=== PATIENT | female | born 1975 | race Caucasian/White ===

== ENCOUNTER 2018-01-25 16:26 | Emergency (ER) | payer SELFPAY ==
[2018-01-25 17:37] LABS: Urine Blood TRACE (NEG); Urine Glucose NEGATIVE (NEG); Urine Protein NEGATIVE (NEG)
[2018-01-25 17:38] LABS: Absolute Lymphocytes (CBC) 2.5 K/uL (0.7-4.9); Absolute Monocytes 0.5 K/uL (0.1-1.3); Absolute Neutrophil 3.3 K/uL (1.8-8.0); Basophils % 0.9 % (0-1.3); Eosinophils % 3.3 % (0-4.4); Lymphocytes % 38.4 % (15.3-44.8); MCH 29.5 pg (27.0-35.0); MCV 89.5 fL (80-100); MPV 8.9 fL (7.6-11.3); Monocytes % 7.6 % (3.3-12.3); RBC Red Blood Cell Count 4.59 M/uL (3.86-4.86)
--- NOTE | 2018-01-25 17:40 | RAD REPORT ---
EXAM DESCRIPTION: [facility] Single View01/25/2018 5:28 pm CLINICAL HISTORY: Chest pain COMPARISON: 2011 FINDINGS: The lungs appear clear of acute infiltrate. Mild elevation the right hemidiaphragm is unc hanged. 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
[2018-01-25 17:49] LABS: Potassium 3.2 mEq/L (3.6-5.0)
[2018-01-25 17:52] LABS: Albumin 4.1 g/dL (3.2-5.5); Bilirubin Total 1.3 mg/dL (0.3-1.2); Protein, Total 8.2 g/dL (6.0-8.3)
[2018-01-25 17:54] LABS: Barbiturates NEGATIVE; Benzodiazepines NEGATIVE; Cocaine NEGATIVE; METHAMPHETAM NEGATIVE; Opiates NEGATIVE
[2018-01-25 18:10] LABS: T3 Free 3.65 pg/ml (2.84-4.24)
[2018-01-25 18:44] LABS: Thyroid Stimulating Hormone 15.95 uIU/mL (0.34-5.60)
--- NOTE | 2018-01-25 19:07 | EDPHYS ---
Physician Documentation [facility] Name: Hillary Olivares Age: 42 yrs Sex: Female : 1975 Arrival Date: 01/25/2018 Time: 16:27 Bed 7 Private MD: ED Physician Matt Burch HPI: 01/25 17:12 This 42 yrs old Female presents to ER via Ambulatory with complaints of Cyst, ps1 fatigue, and chronic pain. 17:12 Patient has a cyst on the back of her hear that has been there for over a month. This ps1 was her chief complaint. She does not have pain, redness, or inflammation around the area . She was accompanied by family member that verbalized that the patient has been forgetful, she is "hard headed" and does not take her medication. She reportedly is a patient of Dr. Vale and was recently diagnosed with thyroid dysfunction and on her own accord stopped taking the medication because it makes her feel funny. . 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 - Social history:: Smoking status: Patient/guardian denies using tobacco. ROS: 17:12 Constitutional: Negative for fever, chills, and weight loss, Eyes: Negative for injury, ps1 pain, redness, and discharge, Cardiovascular: Negative for chest pain, palpitations, and edema, Respiratory: Negative for shortness of breath, cough, wheezing, and pleuritic chest pain, Abdomen/GI: Negative for abdominal pain, nausea, vomiting, diarrhea, and constipation. 17:12 Back: Positive for pain with movement, which is chronic. 17:12 Skin: Positive for cyst on back of right ear. 17:12 Neuro: Positive for fatigue, slow to respond, . Exam: 17:12 Constitutional: This is a well developed, well nourished patient who is awake, alert, ps1 and in no acute distress. Head/Face: Normocephalic, atraumatic. Eyes: Pupils equal round and reactive to light, extra-ocular motions intact. Lids and lashes normal. Conjunctiva and sclera are non-icteric and not injected. ENT: Nares patent. No nasal discharge, no septal abnormalities noted. Tympanic membranes are normal and external auditory canals are clear. Oropharynx with no redness, swelling, or masses, exudates, or evidence of obstruction, uvula midline. Mucous membranes moist. Chest/axilla: Normal chest wall appearance and motion. Nontender with no deformity. No lesions are appreciated. Cardiovascular: Regular rate and rhythm. No gallops, murmurs, or rubs. Normal PMI, no JVD. No pulse deficits. Respiratory: Lungs have equal breath sounds bilaterally, clear to auscultation and percussion. No rales, rhonchi or wheezes noted. No increased work of breathing, no retractions or nasal flaring. Abdomen/GI: Soft, non-tender, with normal bowel sounds. No distension or tympany. No guarding or rebound. No evidence of tenderness throughout. 17:12 Skin: sebaceous cyst post auricular area. 1 cm in diameter and not infected appearing. . Vital Signs: 16:34 BP 170 / 66; Pulse 72; Resp 16; Temp 99.2(TE); Pulse Ox 100% on R/A; Weight 51.71 kg; la1 18:01 BP 158 / 88; Pulse 59; Resp 18; Pulse Ox 100% on R/A; sv MDM: 17:10 Patient medically screened. ps1 19:18 Data reviewed: vital signs, nurses notes, lab test result(s), radiologic studies. ED ps1 course: pt to follow up with Dr. Balderas for her chronic conditions. Request patient to be compliant with medications. Take diflucan for vaginosis and lamisil for toenails. Stable for discharge. . 01/25 17:10 Order name: CBC with Diff; Complete Time: 17:51 ps1 01/25 17:10 Order name: CMP ps1 01/25 17:10 Order name: TSH ps1 01/25 17:10 Order name: T3 Free ps1 01/25 17:10 Order name: UDS; Complete Time: 18:08 ps1 01/25 17:31 Order name: Urine Dipstick--Ancillary (enter results); Complete Time: 17:40 eb 01/25 17:10 Order name: Urine Dipstick-Ancillary (obtain specimen); Complete Time: 17:32 ps1 01/25 17:10 Order name: CXR XRAY; Complete Time: 17:41 ps1 01/25 17:31 Order name: Urine --Ancillary (enter results); Complete Time: 17:40 eb 01/25 18:45 Order name: T4 Free EDMO Administered Medications: No medications were administered Disposition: 01/25/18 19:06 Discharged to Home. Impression: Medication non-compliance., Hypothyroidism, onchiomycosis. , Yeast Infection, Sebaceous cyst. - Condition is Stable. - Discharge Instructions: Ringworm - Nail, Epidermal Cyst, [id number], Vaginitis, Monilial. - Prescriptions for Diflucan 150 mg Oral Tablet - take 1 tablet by ORAL route one time for 1 day; 1 tablet. Lamisil 250 mg Oral Tablet - take 1 tablet by ORAL route once daily for 12 weeks; 84 tablet. - Medication Reconciliation Form, Thank You Letter, Antibiotic Education, Prescription Opioid Use form. - Follow up: Avery Balderas MD; When: As needed; Reason: Further diagnostic work-up, Recheck today's complaints, Continuance of care, Re-evaluation by your physician. Follow up: Emergency Department; When: As needed; Reason: Worsening of condition. - Problem is chronic. - Symptoms are unchanged. - Notes: See attached hypothyroidism discharge instructions. Signatures: Dispatcher [employer] Gaby Batista RN RN sv Attema, Lee, RN RN la1 Ramón Haskins RN RN ao Singer, Phillip, MD MD ps1
--- NOTE | 2018-01-25 19:07 | ER ---
Nurse's Notes [facility] Name: Hillary Olivares Age: 42 yrs Sex: Female : 1975 Arrival Date: 01/25/2018 Time: 16:27 Bed 7 Private MD: Diagnosis: Medication non-compliance.;Hypothyroidism;onchiomycosis. ;Yeast Infection;Sebaceous cyst Presentation: 01/25 16:32 Presenting complaint: Patient states: I have been having a lot of health problems and la1 not had care for a long time (5 years) and I was just able to see Dr. Vale 2 weeks ago and he put me on my thyroid medicine but I stopped taking it again because it made me feel bad. I also have a cyst behind my right ear and I think that may have something to do with everything that is going on. Transition of care: patient was not received from another setting of care. Onset of symptoms was January 25, 2018. Initial Sepsis Screen: Does the patient meet any 2 criteria? No. Patient's initial sepsis screen is negative. Does the patient have a suspected source of infection? No. Patient's initial sepsis screen is negative. Care prior to arrival: None. 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 - Social history:: Smoking status: Patient/guardian denies using tobacco. Screenin:40 Abuse screen: Denies threats or abuse. Denies injuries from another. Nutritional sv screening: No deficits noted. Tuberculosis screening: No symptoms or risk factors identified. Fall Risk None identified. Assessment: 17:45 General: Appears in no apparent distress. uncomfortable, Behavior is calm, cooperative, sv appropriate for age, Reports "I'm losing my memory. I can just tell." Family at bedside she's been having memory loss for the past 5 years. Pain: Complains of pain in right mastoid area Pain does not radiate. Pain currently is 5 out of 10 on a pain scale. Quality of pain is described as tender, Pain began "a long time ago" Is intermittent, Alleviated by nothing. Neuro: Level of Consciousness is awake, alert, obeys commands, Oriented to person, place, time, situation, Moves all extremities. Full function Speech is normal. Cardiovascular: Patient's skin is warm and dry. Respiratory: Respiratory effort is even, unlabored, Respiratory pattern is regular, symmetrical. : Reports discharge, white, since "a long time" vaginal itching, "I'm worried about an STD.". EENT: behind right ear pt has a 2 cm raised area that has been there "a long time". Derm: Skin is pink, warm \\T\\ dry. Musculoskeletal: Range of motion: intact in all extremities, Reports "fungal infection in my left big toe". 18:59 Reassessment: Patient appears in no apparent distress at this time. No changes from sv previously documented assessment. Patient and/or family updated on plan of care and expected duration. Pain level reassessed. Patient is alert, oriented x 3, equal unlabored respirations, skin warm/dry/pink. Vital Signs: 16:34 BP 170 / 66; Pulse 72; Resp 16; Temp 99.2(TE); Pulse Ox 100% on R/A; Weight 51.71 kg; la1 18:01 BP 158 / 88; Pulse 59; Resp 18; Pulse Ox 100% on R/A; sv ED Course: 16:27 Patient arrived in ED. as 16:33 Triage completed. la1 16:34 Arm band placed on left wrist. la1 16:55 Matt Burch MD is Attending Physician. ps1 17:26 X-ray completed. Portable x-ray completed in exam room. Patient tolerated procedure kp1 well. 17:26 CXR XRAY In Process Unspecified. EDMS 17:31 Initial lab(s) drawn, by me, sent to lab. Urine collected: clean catch specimen, jb1 cloudy, dee colored. Inserted saline lock: 22 gauge in left antecubital area, using aseptic technique. Blood collected. 17:40 Patient has correct armband on for positive identification. Placed in gown. Bed in low sv position. Call light in reach. Adult w/ patient. Pulse ox on. NIBP on. Door closed. Warm blanket given. Head of bed elevated. 17:53 Gaby Zhang RN is Primary Nurse. sv 18:59 Assist provider with pelvic exam: Performed by Matt Burch MD Patient tolerated sv well. 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 19:06 Avery Balderas MD is Referral Physician. ps1 19:13 Report given to Jesús CARSON and Ramón CARSON. sv 19:26 Primary Nurse role handed off by Gaby Zhang RN sv 19:37 Ramón Haskins, RN is Primary Nurse. ao 19:45 IV discontinued, intact, bleeding controlled, No redness/swelling at site. Pressure ao dressing applied. Administered Medications: No medications were administered Outcome: 19:06 Discharge ordered by MD. ps1 19:44 Discharged to home ambulatory. ao 19:44 Condition: stable 19:44 Discharge instructions given to patient, Instructed on discharge instructions, follow up and referral plans. Demonstrated understanding of instructions, follow-up care, medications, Prescriptions given X 2. 19:46 Patient left the ED. ao Signatures: Dispatcher [employer] EDMS DianaAlin jb1 Gaby Zhang RN RN sv Martinez, Amelia as Attema, Lee, RN RN la1 Ramón Haskins RN RN Lesvia Toussaint kp1 Matt Burch MD MD ps1 Corrections: (The following items were deleted from the chart) 18:26 18:01 BP 158 / 8; Pulse 59bpm; Resp 18bpm; Pulse Ox 100% RA; sv sv 19:01 17:45 General: Appears in no apparent distress. uncomfortable, Behavior is calm, sv cooperative, appropriate for age, sv
== END 2018-01-25 19:46 | disposition home or self-care (01) ==
LOC: ER 16:26
DX: L72.3 Sebaceous cyst (principal); E03.9 Hypothyroidism, unspecified; B37.9 Candidiasis, unspecified; Z91.14 Patient's other noncompliance with medication regimen
CPT/HCPCS: 36415; 71045; 80053; 80307; 81003; 81025; 84439; 84443; 84481; 85025; 99284

== ENCOUNTER 2018-06-06 11:47 | Emergency (ER) | payer SELFPAY ==
[2018-06-06] MEDS ORDERED: KETOROLAC 30 MG/ML INJ ONE (12:23)
[2018-06-06] MEDS ORDERED: ONDANSETRON 4 MG/2 ML VIAL ONE (12:23)
[2018-06-06] MEDS ORDERED: NA CHLORIDE 0.9% 1,000 ML ONE (12:23)
--- NOTE | 2018-06-06 12:43 | RAD REPORT ---
EXAM DESCRIPTION: US - Abdomen Exam Limited - 06/06/2018 12:31 pm CLINICAL HISTORY: ABD PAIN COMPARISON: ABDOMINAL EXAM COMPLETE dated 02/17/2009 FINDINGS: The gallbladder demonstrates a prominent shadowing gallstone. No pericholecystic fluid or gallbladder wall thickening. The common bile duct is normal measuring 3 mm. The liver demonstrates no findings of intrahepatic biliary dilatation. IMPRESSION: Cholelithiasis.
[2018-06-06 12:46] LABS: Absolute Lymphocytes (CBC) 1.6 K/uL (0.7-4.9); Absolute Monocytes 0.4 K/uL (0.1-1.3); Absolute Neutrophil 2.6 K/uL (1.8-8.0); Basophils % 1.2 % (0-1.3); Eosinophils % 3.4 % (0-4.4); Hematocrit 42.2 % (36.0-45.0); Lymphocytes % 33.7 % (15.3-44.8); MCH 30.6 pg (27.0-35.0); MCV 90.1 fL (80-100); MPV 9.2 fL (7.6-11.3); RBC Red Blood Cell Count 4.69 M/uL (3.86-4.86)
[2018-06-06 12:51] LABS: Albumin 4.4 g/dL (3.4-5.0); Bilirubin Direct 0.3 mg/dL (0-0.2); Bilirubin Total 1.8 mg/dL (0.2-1.0); Potassium 4.1 mmol/L (3.5-5.1); Protein, Total 8.4 g/dL (6.4-8.2)
--- NOTE | 2018-06-06 13:07 | EDPHYS ---
Physician Documentation [facility] Name: Hillary Olivares Age: 42 yrs Sex: Female : 1975 Arrival Date: 06/06/2018 Time: 11:50 Bed 6 Private MD: None, None ED Physician Jerzy Cisse HPI: 06/06 13:00 This 42 yrs old Female presents to ER via Wheelchair with complaints of kb Abdominal Pain, Vomiting. 13:00 The patient presents with abdominal pain in the right upper quadrant. Onset: The kb symptoms/episode began/occurred yesterday. The symptoms do not radiate. Associated signs and symptoms: Pertinent positives: nausea and vomiting, Pertinent negatives: nausea, vomiting, and diarrhea, anorexia, blood in stools, chest pain, constipation, diarrhea, dysuria, fever, headache, hematuria, palpitations, shortness of breath, vaginal discharge, vomiting blood. The symptoms are described as constant, waxing/waning. Modifying factors: The symptoms are alleviated by nothing, the symptoms are aggravated by nothing. Severity of pain: At its worst the pain was moderate in the emergency department the pain is unchanged. The patient has not experienced similar symptoms in the past. The patient has been recently seen by a physician: the ER physician, out of Town. Pt states she was seen at [facility] yesterday and diagnosed with gallstones. Reports she still has pain so she came in. Did not fill prescriptions from yesterday. . 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 - Social history:: Smoking status: Patient/guardian denies using tobacco. - Ebola Screening: : Patient denies travel to an Ebola-affected area in the 21 days before illness onset. ROS: 13:04 Constitutional: Negative for fever, chills, and weight loss, Cardiovascular: Negative kb for chest pain, palpitations, and edema, Respiratory: Negative for shortness of breath, cough, wheezing, and pleuritic chest pain, Back: Negative for injury and pain, : Negative for injury, bleeding, discharge, and swelling, MS/Extremity: Negative for injury and deformity, Skin: Negative for injury, rash, and discoloration, Neuro: Negative for headache, weakness, numbness, tingling, and seizure. 13:04 Abdomen/GI: Positive for abdominal pain, nausea and vomiting, Negative for diarrhea, constipation, abdominal cramps, abdominal distension, anorexia. Exam: 13:04 Constitutional: This is a well developed, well nourished patient who is awake, alert, kb and in no acute distress. Head/Face: Normocephalic, atraumatic. Chest/axilla: Normal chest wall appearance and motion. Nontender with no deformity. No lesions are appreciated. Cardiovascular: Regular rate and rhythm with a normal S1 and S2. No gallops, murmurs, or rubs. Normal PMI, no JVD. No pulse deficits. Respiratory: Lungs have equal breath sounds bilaterally, clear to auscultation and percussion. No rales, rhonchi or wheezes noted. No increased work of breathing, no retractions or nasal flaring. Back: No spinal tenderness. No costovertebral tenderness. Full range of motion. Skin: Warm, dry with normal turgor. Normal color with no rashes, no lesions, and no evidence of cellulitis. MS/ Extremity: Pulses equal, no cyanosis. Neurovascular intact. Full, normal range of motion. Neuro: Awake and alert, GCS 15, oriented to person, place, time, and situation. Cranial nerves II-XII grossly intact. Motor strength 5/5 in all extremities. Sensory grossly intact. Cerebellar exam normal. Normal gait. 13:04 Abdomen/GI: Inspection: abdomen appears normal, Bowel sounds: normal, in all quadrants, Palpation: soft, in all quadrants, mild abdominal tenderness, in all quadrants. Vital Signs: 11:59 BP 130 / 92; Pulse 75; Resp 18; Temp 98.4(TE); Pulse Ox 100% on R/A; Weight 51.26 kg aj1 (R); Height 5 ft. 3 in. (160.02 cm) (R); Pain 10/10; 12:51 BP 142 / 71; Pulse 56; Resp 16; Pulse Ox 100% on R/A; Pain 3/10; sv 11:59 Body Mass Index 20.02 (51.26 kg, 160.02 cm) aj1 12:51 Pt reports that her pain is not a 10 all the time, only when her random pain come. sv MDM: 12:04 Patient medically screened. kb 13:00 Data reviewed: vital signs, nurses notes. Data interpreted: Pulse oximetry: on room air kb is 100 %. Interpretation: normal. Counseling: I had a detailed discussion with the patient and/or guardian regarding: the historical points, exam findings, and any diagnostic results supporting the discharge/admit diagnosis, lab results, radiology results, the need for outpatient follow up, a family practitioner, to return to the emergency department if symptoms worsen or persist or if there are any questions or concerns that arise at home. 06/06 12:15 Order name: Amylase, Serum; Complete Time: 12:56 kb 06/06 12:15 Order name: Basic Metabolic Panel; Complete Time: 12:56 kb 06/06 12:15 Order name: CBC with Diff; Complete Time: 12:48 kb 06/06 12:15 Order name: Hepatic Function; Complete Time: 12:56 kb 06/06 12:15 Order name: Lipase; Complete Time: 12:56 kb 06/06 12:15 Order name: US Abdomen Limited; Complete Time: 12:43 kb 06/06 12:15 Order name: IV Saline Lock; Complete Time: 12:23 kb 06/06 12:15 Order name: Labs collected and sent; Complete Time: 12:24 kb Administered Medications: 12:23 Drug: NS 0.9% 1000 ml Route: IV; Rate: 1000 ml; Site: right antecubital; hb 12:23 Drug: Zofran 4 mg Route: IVP; Site: right antecubital; hb 12:29 Follow up: Response: No adverse reaction sv 12:23 Drug: TORadol 30 mg Route: IVP; Site: right antecubital; hb 12:29 Follow up: Response: No adverse reaction sv 13:10 Drug: morphine 4 mg Route: IVP; Site: right antecubital; sv Disposition: 06/06/18 13:06 Discharged to Home. Impression: Cholelithiasis. - Condition is Stable. - Discharge Instructions: Cholelithiasis, [id number]. - Prescriptions for Zofran 4 mg Oral Tablet - take 1 tablet by ORAL route every 6 hours As needed; 20 tablet. - Medication Reconciliation Form, Thank You Letter, Antibiotic Education, Prescription Opioid Use form. - Follow up: Emergency Department; When: As needed; Reason: Worsening of condition. Follow up: Private Physician; When: 2 - 3 days; Reason: Recheck today's complaints, Continuance of care, Re-evaluation by your physician. Addendum: 06/10/2018 07:42 Co-signature as Attending Physician, Jerzy Cisse MD I agree with the assessment and c keenan plan of care. Signatures: Dispatcher [employer] EDKylie Hernandez, LEMUEL-C POWDER MONKEY-CkSarah Beth Greco, RN RN aj1 Radha Still, RN RN dm5 Gaby Zhang RN Jerzy Burdick MD MD cha Baxter, Heather RN RN Corrections: (The following items were deleted from the chart) 06/06 13:32 13:06 06/06/2018 13:06 Discharged to Home. Impression: Cholelithiasis. Condition is dm5 Stable. Forms are Medication Reconciliation Form, Thank You Letter, Antibiotic Education, Prescription Opioid Use. Follow up: Emergency Department; When: As needed; Reason: Worsening of condition. Follow up: Private Physician; When: 2 - 3 days; Reason: Recheck today's complaints, Continuance of care, Re-evaluation by your physician. kb
--- NOTE | 2018-06-06 13:07 | ER ---
Nurse's Notes [facility] Name: Hillary Olivares Age: 42 yrs Sex: Female : 1975 Arrival Date: 06/06/2018 Time: 11:50 Bed 6 Private MD: None, None Diagnosis: Cholelithiasis Presentation: 06/06 11:55 Presenting complaint: Patient states: "Abdominal pain and headache, chills, for the aj1 last 24 hours. She was seen in the ER at [facility] yesterday. They did labs and a CT scan. They said I have gallbladder stones." Patient reports nausea, vomiting, generalized body aches. Transition of care: patient was not received from another setting of care. Onset of symptoms was June 05, 2018. Risk Assessment: Do you want to hurt yourself or someone else? Patient reports no desire to harm self or others. Initial Sepsis Screen: Does the patient meet any 2 criteria? No. Patient's initial sepsis screen is negative. Does the patient have a suspected source of infection? Yes: Acute abdominal pain. Care prior to arrival: None. 11:55 Method Of Arrival: Wheelchair aj1 11:55 Acuity: ALBERTO 3 aj1 Triage Assessment: 11:59 General: Appears in no apparent distress. comfortable, Behavior is calm, cooperative, aj1 appropriate for age. Pain: Complains of pain in right upper quadrant and right lower quadrant Pain currently is 10 out of 10 on a pain scale. Neuro: Level of Consciousness is awake, alert, obeys commands. Cardiovascular: Patient's skin is warm and dry. Respiratory: Airway is patent Respiratory effort is even, unlabored, Respiratory pattern is regular, symmetrical. GI: Reports lower abdominal pain, upper abdominal pain, nausea, vomiting. Derm: Skin is pink, warm \\T\\ dry. normal. 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 - Social history:: Smoking status: Patient/guardian denies using tobacco. - Ebola Screening: : Patient denies travel to an Ebola-affected area in the 21 days before illness onset. Screenin:15 Abuse screen: Denies threats or abuse. Denies injuries from another. Nutritional sv screening: No deficits noted. Tuberculosis screening: No symptoms or risk factors identified. Fall Risk None identified. Assessment: 12:15 General: Appears in no apparent distress. uncomfortable, slender, Behavior is calm, sv cooperative, appropriate for age. Pain: Complains of pain in abdomen Pain currently is 10 out of 10 on a pain scale. Pain began 1 day ago. Is intermittent. Neuro: Level of Consciousness is awake, alert, obeys commands, Oriented to person, place, time, situation, Moves all extremities. Full function Gait is steady, Speech is normal. Respiratory: Respiratory effort is even, unlabored, Respiratory pattern is regular, symmetrical. GI: Abdomen is flat, Abd is soft X 4 quads Abdomen is tender to palpation X 4 quads. Reports vomiting. : No signs and/or symptoms were reported regarding the genitourinary system. EENT: No signs and/or symptoms were reported regarding the EENT system. Derm: Skin is pink, warm \\T\\ dry. Musculoskeletal: No signs and/or symptoms reported regarding the musculoskeletal system. 12:52 Reassessment: Patient appears in no apparent distress at this time. Patient and/or sv family updated on plan of care and expected duration. Pain level reassessed. Patient is alert, oriented x 3, equal unlabored respirations, skin warm/dry/pink. Patient states symptoms have improved. 13:07 Reassessment: Patient appears in no apparent distress at this time. Patient and/or sv family updated on plan of care and expected duration. Pain level reassessed. Patient is alert, oriented x 3, equal unlabored respirations, skin warm/dry/pink. Reports pain is a 10. Vital Signs: 11:59 BP 130 / 92; Pulse 75; Resp 18; Temp 98.4(TE); Pulse Ox 100% on R/A; Weight 51.26 kg aj1 (R); Height 5 ft. 3 in. (160.02 cm) (R); Pain 10/10; 12:51 BP 142 / 71; Pulse 56; Resp 16; Pulse Ox 100% on R/A; Pain 3/10; sv 11:59 Body Mass Index 20.02 (51.26 kg, 160.02 cm) aj1 12:51 Pt reports that her pain is not a 10 all the time, only when her random pain come. sv ED Course: 11:50 Patient arrived in ED. mr 11:50 None, None is Private Physician. mr 11:59 Triage completed. aj1 11:59 Arm band placed on Patient placed in an exam room. aj1 12:04 Kylie Isidro FNP-C is [facility]. kb 12:04 Jerzy Cisse MD is Attending Physician. kb 12:15 Gaby Zhang, ALLI is Primary Nurse. sv 12:15 Patient has correct armband on for positive identification. Bed in low position. Adult sv w/ patient. Door closed. Head of bed elevated. 12:15 Pulse ox on. NIBP on. mb4 12:23 Patient taken to ultrasound. via wheelchair. sv 12:25 Inserted saline lock: 22 gauge in right antecubital area, using aseptic technique. mb4 Blood collected. 12:32 US Abdomen Limited In Process Unspecified. EDMS 13:32 No provider procedures requiring assistance completed. IV discontinued, intact, sv bleeding controlled, No redness/swelling at site. Pressure dressing applied. Administered Medications: 12:23 Drug: NS 0.9% 1000 ml Route: IV; Rate: 1000 ml; Site: right antecubital; hb 12:23 Drug: Zofran 4 mg Route: IVP; Site: right antecubital; hb 12:29 Follow up: Response: No adverse reaction sv 12:23 Drug: TORadol 30 mg Route: IVP; Site: right antecubital; hb 12:29 Follow up: Response: No adverse reaction sv 13:10 Drug: morphine 4 mg Route: IVP; Site: right antecubital; sv Intake: 10:30 IV: 1000ml; Total: 1000ml. sv Outcome: 13:06 Discharge ordered by . kb 13:32 Patient left the ED. dm5 13:32 Discharged to home via wheelchair, with family. sv 13:32 Condition: stable 13:32 Discharge instructions given to patient, Instructed on discharge instructions, follow up and referral plans. medication usage, Discharge done by Radha CARSON Demonstrated understanding of instructions, follow-up care, medications, Prescriptions given X 1. Signatures: Dispatcher [employer] EDMS Kylie Isidro FNP-C FNP-Ckb Johnson, Angela RN RN aj1 Radha Still, RN RN dm5 Gaby Zhang, RN RN Sheila Pabon Heather, RN RN Yamile Ng 4
[2018-06-06] MEDS ORDERED: MORPHINE 4 MG/ML SYR ONE (13:12)
== END 2018-06-06 13:32 | disposition home or self-care (01) ==
LOC: ER 11:47
DX: K80.20 Calculus of gallbladder without cholecystitis without obstruction (principal)
CPT/HCPCS: 36415; 76705; 80048; 80076; 82150; 83690; 85025; 96374; 96375; 99284; J2405; J7030

== ENCOUNTER 2018-06-25 18:25 | Emergency (ER) | payer SELFPAY ==
[2018-06-25 18:57] LABS: Urine Blood NEGATIVE (NEG); Urine Glucose NEGATIVE (NEG); Urine Protein NEGATIVE (NEG); Urine pH 5.5 (5.0-7.0)
[2018-06-25 19:22] LABS: Urine Bacteria 20-50 /HPF (<20); Urine Culture Reflex Order NOT NEEDED; Urine RBC <5 /HPF (NONE SEEN)
--- NOTE | 2018-06-25 19:45 | RAD REPORT ---
EXAM DESCRIPTION: RAD - Abdomen 1 View (KUB) - 06/25/2018 7:39 pm CLINICAL HISTORY: ABD PAIN Pain COMPARISON: No comparisons FINDINGS: The bowel gas pattern is non-obstructive. No evidence of free air or pneumatosis. No suspi cious calcifications. No significant bony findings. Large amount of stool is present in the rectum. IMPRESSION: Rectal fecal impaction.
[2018-06-25] MEDS ORDERED: BISACODYL 10 MG RECTAL SUPP ONE ×2 (20:05→20:49)
--- NOTE | 2018-06-25 20:17 | ER ---
Nurse's Notes [facility] Name: Hillary Olivares Age: 42 yrs Sex: Female : 1975 Arrival Date: 06/25/2018 Time: 18:27 Bed 20 Private MD: None, None Diagnosis: Constipation, unspecified-resolved Presentation: 06/25 18:32 Presenting complaint: Patient states: Reports sensation of fecal impaction that started aj a few hours ago. Reports small bowel movement today and diarrhea 3 days ago, for which she took 2 doses of Imodium. Transition of care: patient was not received from another setting of care. Onset of symptoms was June 25, 2018. Risk Assessment: Do you want to hurt yourself or someone else? Patient reports no desire to harm self or others. Initial Sepsis Screen: Does the patient meet any 2 criteria? No. Patient's initial sepsis screen is negative. Does the patient have a suspected source of infection? No. Patient's initial sepsis screen is negative. Care prior to arrival: None. 18:32 Method Of Arrival: Ambulatory aj 18:32 Acuity: ALBERTO 4 aj Triage Assessment: 18:35 General: Appears in no apparent distress. comfortable, Behavior is calm, cooperative, aj appropriate for age. Pain: Denies pain. Neuro: Level of Consciousness is awake, alert, obeys commands, Oriented to person, place, time, situation, Appropriate for age. Respiratory: Airway is patent Respiratory effort is even, unlabored, Respiratory pattern is regular, symmetrical. GI: Reports hemorrhoids, Sensation of stool stuck in rectum. Derm: Skin is intact, is healthy with good turgor, Skin is pink, warm \T\ dry. normal. 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 - Social history:: Smoking status: Patient/guardian denies using tobacco. - Ebola Screening: : Patient negative for fever greater than or equal to 101.5 degrees Fahrenheit, and additional compatible Ebola Virus Disease symptoms Patient denies exposure to infectious person Patient denies travel to an Ebola-affected area in the 21 days before illness onset No symptoms or risks identified at this time. Screenin:40 Abuse screen: Denies threats or abuse. Denies injuries from another. Nutritional hj screening: No deficits noted. Tuberculosis screening: No symptoms or risk factors identified. Fall Risk None identified. Assessment: 18:41 GI: Bowel sounds present X 4 quads. Abd is soft and non tender. hj 18:41 General: Appears in no apparent distress. uncomfortable, Behavior is calm, cooperative, hj appropriate for age. Pain: Complains of pain in abdomen. Neuro: Level of Consciousness is awake, alert, obeys commands, Oriented to person, place, time, situation, Appropriate for age. Cardiovascular: Heart tones S1 S2 Capillary refill < 3 seconds Patient's skin is warm and dry. Respiratory: Airway is patent Respiratory effort is even, unlabored, Respiratory pattern is regular, symmetrical. GI: Reports constipation. : No signs and/or symptoms were reported regarding the genitourinary system. EENT: No signs and/or symptoms were reported regarding the EENT system. Derm: No signs and/or symptoms reported regarding the dermatologic system. Musculoskeletal: No signs and/or symptoms reported regarding the musculoskeletal system. 19:03 Reassessment: Patient appears in no apparent distress at this time. No changes from jd3 previously documented assessment. Patient and/or family updated on plan of care and expected duration. Pain level reassessed. Patient is alert, oriented x 3, equal unlabored respirations, skin warm/dry/pink. 19:27 Reassessment: Patient appears in no apparent distress at this time. No changes from jd3 previously documented assessment. Patient and/or family updated on plan of care and expected duration. Pain level reassessed. Patient is alert, oriented x 3, equal unlabored respirations, skin warm/dry/pink. 20:06 Reassessment: pt reported having a bowel movement, reported feeling better. j 20:44 Reassessment: Patient appears in no apparent distress at this time. Patient and/or j family updated on plan of care and expected duration. Pain level reassessed. Patient is alert, oriented x 3, equal unlabored respirations, skin warm/dry/pink. reported still feeling impacted, provider notified, new orders received. Vital Signs: 18:35 BP 154 / 86; Pulse 89; Resp 16; Temp 98.9; Pulse Ox 100% on R/A; Weight 51.26 kg; aj Height 5 ft. 3 in. (160.02 cm); 18:45 BP 156 / 87; Pulse 89; Resp 18; Pulse Ox 97% on R/A; hj 19:27 BP 158 / 81; Pulse 62; Resp 16 S; Pulse Ox 97% on R/A; jd3 20:40 BP 144 / 87; Pulse 65; Resp 16 S; Pulse Ox 96% on R/A; jd3 18:35 Body Mass Index 20.02 (51.26 kg, 160.02 cm) ED Course: 18:27 Patient arrived in ED. mr 18:28 None, None is Private Physician. mr 18:34 Triage completed. aj 18:35 Arm band placed on right wrist. Patient placed in an exam room. aj 18:40 Sean Guerrero, RN is Primary Nurse. hj 18:40 Lizz Bender [facility]-C [facility]. snw 18:40 Torsten Cheney MD is Attending Physician. snw 18:41 Patient has correct armband on for positive identification. Bed in low position. Call light in reach. Side rails up X 1. Adult w/ patient. 18:49 Urine collected: clean catch specimen, clear. 5 18:52 Urine --Ancillary (enter results) Sent. 5 18:52 Urine Dipstick--Ancillary (enter results) Sent. mh5 18:52 Urine Culture Sent. mh5 18:52 Urine Microscopic Only Sent. 5 19:03 Primary Nurse role handed off by Sean Guerrero, ALLI jd3 19:03 Cash Tesfaye RN is Primary Nurse. jd3 19:39 XRAY Abdomen 1 View (KUB) In Process Unspecified. EDMS 20:52 No provider procedures requiring assistance completed. Patient did not have IV access jd3 during this emergency room visit. Administered Medications: 20:06 Not Given (Patient Refused): Dulcolax Suppository 10 mg MI once jd3 20:44 Drug: Dulcolax Suppository 10 mg Route: MI; jd3 20:44 Follow up: Response: Medication administered at discharge. jd3 Outcome: 20:16 Discharge ordered by . snw 20:52 Discharged to home ambulatory, with friend. jd3 20:52 Condition: stable 20:52 Discharge instructions given to patient, friend, Instructed on discharge instructions, follow up and referral plans. medication usage, Demonstrated understanding of instructions, follow-up care, medications, Prescriptions given X 1. 20:53 Patient left the ED. jd3 Signatures: Dispatcher [employer] EDMS Dariana Rae, Lizz Walter RN, INFORMATION TECHNOLOGY MANAGER-C INFORMATION TECHNOLOGY MANAGER-Csnw Sheila Mas mr Sean Guerrero RN RN hj Martinez, Maria Cash Maciel RN RN jkrista
--- NOTE | 2018-06-25 20:17 | EDPHYS ---
Physician Documentation [facility] Name: Hillary Olivares Age: 42 yrs Sex: Female : 1975 Arrival Date: 06/25/2018 Time: 18:27 Bed 20 Private MD: None, None ED Physician Torsten Cheney HPI: 06/25 20:48 This 42 yrs old Female presents to ER via Ambulatory with complaints of snw Constipation. 20:48 Onset: The symptoms/episode began/occurred gradually. Associated signs and symptoms: snw Pertinent positives: pt with loose stool and then she took immodium x 2 doses. Pt now states she has rectal pressure and tiny, hard stools. It is unknown whether or not the patient has had similar symptoms in the past. The patient has not recently seen a physician. 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 - Social history:: Smoking status: Patient/guardian denies using tobacco. - Ebola Screening: : Patient negative for fever greater than or equal to 101.5 degrees Fahrenheit, and additional compatible Ebola Virus Disease symptoms Patient denies exposure to infectious person Patient denies travel to an Ebola-affected area in the 21 days before illness onset No symptoms or risks identified at this time. ROS: 20:43 Constitutional: Negative for fever, chills, and weight loss, Eyes: Negative for injury, snw pain, redness, and discharge, ENT: Negative for injury, pain, and discharge, Neck: Negative for injury, pain, and swelling, Cardiovascular: Negative for chest pain, palpitations, and edema, Respiratory: Negative for shortness of breath, cough, wheezing, and pleuritic chest pain, Abdomen/GI: Negative for abdominal pain, nausea, vomiting, diarrhea, and constipation, Back: Negative for injury and pain, : Negative for injury, bleeding, discharge, and swelling, MS/Extremity: Negative for injury and deformity, Skin: Negative for injury, rash, and discoloration, Neuro: Negative for headache, weakness, numbness, tingling, and seizure. Exam: 20:43 Constitutional: This is a well developed, well nourished patient who is awake, alert, snw and in no acute distress. Head/Face: Normocephalic, atraumatic. Eyes: Pupils equal round and reactive to light, extra-ocular motions intact. Lids and lashes normal. Conjunctiva and sclera are non-icteric and not injected. Cornea within normal limits. Periorbital areas with no swelling, redness, or edema. ENT: Nares patent. No nasal discharge, no septal abnormalities noted. Tympanic membranes are normal and external auditory canals are clear. Oropharynx with no redness, swelling, or masses, exudates, or evidence of obstruction, uvula midline. Mucous membranes moist. Neck: Trachea midline, no thyromegaly or masses palpated, and no cervical lymphadenopathy. Supple, full range of motion without nuchal rigidity, or vertebral point tenderness. No Meningismus. Chest/axilla: Normal chest wall appearance and motion. Nontender with no deformity. No lesions are appreciated. Cardiovascular: Regular rate and rhythm with a normal S1 and S2. No gallops, murmurs, or rubs. Normal PMI, no JVD. No pulse deficits. Respiratory: Lungs have equal breath sounds bilaterally, clear to auscultation and percussion. No rales, rhonchi or wheezes noted. No increased work of breathing, no retractions or nasal flaring. Abdomen/GI: Soft, non-tender, with normal bowel sounds. No distension or tympany. No guarding or rebound. No evidence of tenderness throughout. Back: No spinal tenderness. No costovertebral tenderness. Full range of motion. Skin: Warm, dry with normal turgor. Normal color with no rashes, no lesions, and no evidence of cellulitis. MS/ Extremity: Pulses equal, no cyanosis. Neurovascular intact. Full, normal range of motion. Neuro: Awake and alert, GCS 15, oriented to person, place, time, and situation. Cranial nerves II-XII grossly intact. Motor strength 5/5 in all extremities. Sensory grossly intact. Cerebellar exam normal. Normal gait. Psych: Awake, alert, with orientation to person, place and time. Behavior, mood, and affect are within normal limits. Vital Signs: 18:35 BP 154 / 86; Pulse 89; Resp 16; Temp 98.9; Pulse Ox 100% on R/A; Weight 51.26 kg; aj Height 5 ft. 3 in. (160.02 cm); 18:45 BP 156 / 87; Pulse 89; Resp 18; Pulse Ox 97% on R/A; hj 19:27 BP 158 / 81; Pulse 62; Resp 16 S; Pulse Ox 97% on R/A; jd3 20:40 BP 144 / 87; Pulse 65; Resp 16 S; Pulse Ox 96% on R/A; jd3 18:35 Body Mass Index 20.02 (51.26 kg, 160.02 cm) aj MDM: 18:42 Patient medically screened. snw 20:44 Data reviewed: vital signs, nurses notes. Data interpreted: Pulse oximetry: on room air snw is 96 %. Interpretation: acceptable. Counseling: I had a detailed discussion with the patient and/or guardian regarding: the historical points, exam findings, and any diagnostic results supporting the discharge/admit diagnosis, the presence of at least one elevated blood pressure reading (>120/80) during this emergency department visit, lab results, radiology results, the need for outpatient follow up, to return to the emergency department if symptoms worsen or persist or if there are any questions or concerns that arise at home. Special discussion: Based on the history and exam findings, there is no indication for further emergent testing or inpatient evaluation. I discussed with the patient/guardian the need to see the primary care provider for further evaluation of the symptoms. 06/25 18:41 Order name: Urine Culture [facility] 06/25 18:41 Order name: Urine Microscopic Only [facility] 06/25 18:50 Order name: Urine Dipstick--Ancillary (enter results) 06/25 18:50 Order name: Urine --Ancillary (enter results) bd 06/25 18:57 Order name: Urine --Ancillary; Complete Time: 19:08 [facility] 06/25 18:57 Order name: Urine Dipstick-Ancillary; Complete Time: 19:08 [facility] 06/25 18:41 Order name: Urine Test (obtain specimen); Complete Time: 18:42 snw 06/25 18:41 Order name: Urine Dipstick-Ancillary (obtain specimen); Complete Time: 18:43 snw 06/25 19:08 Order name: XRAY Abdomen 1 View (KUB); Complete Time: 19:48 snw 06/25 19:23 Order name: Urine Microscopic Only; Complete Time: 19:26 EDMS Administered Medications: 20:06 Not Given (Patient Refused): Dulcolax Suppository 10 mg AK once jd3 20:44 Drug: Dulcolax Suppository 10 mg Route: AK; jd3 20:44 Follow up: Response: Medication administered at discharge. jd3 Disposition: 06/25/18 20:16 Discharged to Home. Impression: Constipation, unspecified - resolved. - Condition is Stable. - Discharge Instructions: Constipation, Adult, Dehydration, Adult, High-Fiber Diet, Steps to Quit Smoking, Smoking Hazards, Rehydration, Adult. - Prescriptions for Miralax 17 gram/dose Oral - take 1 packet by ORAL route once daily dilute powder in 8 ounces of water or juice; 1 box. - Medication Reconciliation Form, Thank You Letter, Antibiotic Education, Prescription Opioid Use form. - Follow up: Private Physician; When: 2 - 3 days; Reason: Recheck today's complaints, Continuance of care, Re-evaluation by your physician. Follow up: Emergency Department; When: As needed; Reason: Worsening of condition. - Problem is new. - Symptoms are unchanged. Addendum: 06/28/2018 19:03 Co-signature as Attending Physician, Torsten Cheney MD. r n Signatures: Dispatcher [employer] EDDariana Quesada, RN RN Lizz Ashley, RETAIL RESET MERCHANDISER-C RETAIL RESET MERCHANDISER-Csnw Torsten Cheney MD MD rn Davies, Jonathon, RN RN jd3 Corrections: (The following items were deleted from the chart) 06/25 20:53 20:16 06/25/2018 20:16 Discharged to Home. Impression: Constipation, unspecified - jd3 resolved. Condition is Stable. Forms are Medication Reconciliation Form, Thank You Letter, Antibiotic Education, Prescription Opioid Use. Follow up: Private Physician; When: 2 - 3 days; Reason: Recheck today's complaints, Continuance of care, Re-evaluation by your physician. Follow up: Emergency Department; When: As needed; Reason: Worsening of condition. Problem is new. Symptoms are unchanged. snw
== END 2018-06-25 20:53 | disposition home or self-care (01) ==
LOC: ER 18:25
DX: K59.00 Constipation, unspecified (principal)
CPT/HCPCS: 74018; 81003; 81015; 81025; 87086; 87088; 99284

== ENCOUNTER 2019-04-09 15:32 | Emergency (ER) | payer SELFPAY ==
--- OUTSIDE RECORDS SUMMARY | 2019-04-09 15:34 | XMS REPORT ---
:1975 [facility] Address [address] [place] [address] Dr. [place] [address] [place] [id number] Care Team Providers Name Role Phone Unavailable Unavailable Unavailable Problems This patient has no known problems. Allergies, Adverse Reactions, Alerts This patient has no known allergies or adverse reactions. Medications This patient has no known medications.
[2019-04-09 16:24] LABS: Absolute Lymphocytes (CBC) 2.1 K/uL (0.7-4.9); Eosinophils % 3.6 % (0-4.4); Hematocrit 40.3 % (36.0-45.0); Lymphocytes % 32.8 % (15.3-44.8); MPV 9.4 fL (7.6-11.3); Monocytes % 8.4 % (3.3-12.3); RBC Red Blood Cell Count 4.51 M/uL (3.86-4.86)
[2019-04-09] MEDS ORDERED: NA CHLORIDE 0.9% 1,000 ML ONE (16:31)
[2019-04-09] MEDS ORDERED: DICYCLOMINE HCL 10 MG CAP ONE (16:46)
[2019-04-09 17:32] LABS: Potassium 3.3 mmol/L (3.5-5.1)
[2019-04-09 17:33] LABS: Thyroid Stimulating Hormone 18.8 uIU/mL (0.360-3.740)
--- NOTE | 2019-04-09 18:16 | RAD REPORT ---
EXAM DESCRIPTION: CT - Abdomen Pelvis W Contrast - 04/09/2019 5:55 pm CLINICAL HISTORY: Abdominal pain lower abdominal pain. COMPARISON: 2014 TECHNIQUE: Computed axial tomography of the abdomen pelvis was obtained. 100 cc Isovue-300 was admin istered intravenously. Oral contrast was not requested which limits evaluation of bowel. All CT scans are performed using dose optimization technique as appropriate and may include automated exposure control or mA/KV adjustment according to patient size. FINDINGS: 14 millimeter hepatic cyst. 10 millimeter intermediate density mass right lobe of the live r. It is unchanged in size from the prior exam and likely benign Spleen, pancreas, adrenal and kidneys appear unremarkable. Cholelithiasis There is no evidence of diverticulitis. Normal appendix Prominent periuterine veins Mild tree-in-bud opacities within the lingula IMPRESSION: Cholelithiasis Prominent periuterine veins. This is nonspecific but can be associated with pelvic venous congestion syndrome Mild tree-in-bud opacities within the lingula may indicate an atypical infection
--- NOTE | 2019-04-09 18:42 | ER ---
Nurse's Notes [facility] Name: Hillary Olivares Age: 43 yrs Sex: Female : 1975 Arrival Date: 04/09/2019 Time: 15:34 Bed 30 Private MD: Diagnosis: Other specified conditions associated with female genital organs and menstrual cycle;Vomiting;Diarrhea, unspecified;Pneumonia Presentation: 04/09 15:36 Presenting complaint: Patient states: lower abd pain and nausea that began 2 days ago. aa5 Pt denies vomiting, denies diarrhea. Transition of care: patient was not received from another setting of care. Onset of symptoms was April 2019. Risk Assessment: Do you want to hurt yourself or someone else? Patient reports no desire to harm self or others. Initial Sepsis Screen: Does the patient meet any 2 criteria? No. Patient's initial sepsis screen is negative. Does the patient have a suspected source of infection? No. Patient's initial sepsis screen is negative. Care prior to arrival: None. 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 - Social history:: Smoking status: Patient/guardian denies using tobacco. - Ebola Screening: : No symptoms or risks identified at this time. Screenin:29 Abuse screen: Denies threats or abuse. Denies injuries from another. Nutritional rv screening: No deficits noted. Tuberculosis screening: No symptoms or risk factors identified. Fall Risk None identified. Assessment: 16:27 General: Appears in no apparent distress. comfortable, Behavior is calm, cooperative. rv Pain: Complains of pain in abdomen. Neuro: Level of Consciousness is awake, alert, obeys commands, Oriented to person, place, time, situation. Cardiovascular: Patient's skin is warm and dry. Respiratory: Airway is patent. GI: Bowel sounds present X 4 quads. Abd is soft and non tender. : No signs and/or symptoms were reported regarding the genitourinary system. EENT: No signs and/or symptoms were reported regarding the EENT system. Derm: Skin is intact. Musculoskeletal: No signs and/or symptoms reported regarding the musculoskeletal system. 17:01 Reassessment: Patient appears in no apparent distress at this time. Patient and/or rv family updated on plan of care and expected duration. Pain level reassessed. Patient is alert, oriented x 3, equal unlabored respirations, skin warm/dry/pink. awaiting CT scan. 17:47 Reassessment: patient taken to CT scan. rv Vital Signs: 15:38 BP 132 / 82; Pulse 79; Resp 16 S; Temp 99.2(TE); Pulse Ox 100% on R/A; Height 5 ft. 3 aa5 in. (160.02 cm) (R); Pain 10/10; 15:40 Weight 52.3 kg (M); iw 16:42 BP 117 / 68; Pulse 53; Resp 15; Pulse Ox 100% on R/A; rv 17:01 BP 112 / 75; Pulse 56; Resp 15; Pulse Ox 100% ; rv 17:29 BP 122 / 75; Pulse 53; Resp 17 S; Pulse Ox 100% on R/A; ca1 17:46 BP 115 / 78; Pulse 51; Resp 15; Temp 99; Pulse Ox 100% ; rv 18:57 BP 114 / 74; Pulse 55; Resp 16; Temp 99; Pulse Ox 98% ; rv 15:40 Body Mass Index 20.42 (52.30 kg, 160.02 cm) iw ED Course: 15:34 Patient arrived in ED. aa5 15:37 Kyl[facility]id[facility]-C is [facility]. kb 15:37 Jerzy Cisse MD is Attending Physician. kb 15:37 Triage completed. aa5 15:53 Sam Gomes, ALLI is Primary Nurse. rv 15:53 Radiology exam delayed due to lab results not completed at this time. (BUN/Creatinine). vm2 15:53 Inserted saline lock: 20 gauge in right antecubital area, using aseptic technique. rv Blood collected. 16:12 Radiology exam delayed due to lab results not completed at this time. (BUN/Creatinine). vm2 16:29 Patient has correct armband on for positive identification. Bed in low position. Call rv light in reach. Side rails up X 1. Adult w/ patient. Pulse ox on. NIBP on. 16:32 Radiology exam delayed due to lab results not completed at this time. (BUN/Creatinine). ne 16:33 Patient placed in the treatment room, on a stretcher, on pulse oximetry, Patient rv notified of wait time. 16:49 Radiology exam delayed due to lab results not completed at this time. (BUN/Creatinine). ne 17:34 PHCP role handed off by Kylie Isidro FNP-C [facility] 17:34 Richard Moseley PA is PHCP. [facility] 17:56 CT Abd/Pelvis - IV Contrast Only In Process Unspecified. EDMS 18:00 CT completed. Patient tolerated procedure well. Patient moved to AL. Patient moved back ne from AL. 18:40 Annita Fay MD is Referral Physician. [facility] 18:40 Isma Mcadams MD is Referral Physician. [facility] 18:57 No provider procedures requiring assistance completed. IV discontinued, intact, rv bleeding controlled, No redness/swelling at site. Pressure dressing applied. Administered Medications: 16:18 Drug: NS 0.9% 1000 ml Route: IV; Rate: 1000 ml; Site: right antecubital; rv 18:57 Follow up: IV Status: Completed infusion rv 16:32 Drug: Bentyl 20 mg Route: PO; rv 18:57 Follow up: Response: No adverse reaction rv Outcome: 18:42 Discharge ordered by MD. [facility] 18:58 Discharged to home ambulatory. rv 18:58 Condition: good 18:58 Discharge instructions given to patient, Instructed on discharge instructions, follow up and referral plans. medication usage, Demonstrated understanding of instructions, follow-up care, medications, Prescriptions given X 2. 18:58 Patient left the ED. rv Signatures: Dispatcher [employer] EDMS Kylie Isidro FNP-C FNP-Richard Flores PA PA Nataliia Alexandre RN RN iw Calderon, Audri, RN RN aliyah5 Ziyad Maradiaga Victoria 2 Sam Gomes RN RN rv Acob, Cheryl, RN RN ca1 Corrections: (The following items were deleted from the chart) 15:53 15:53 Radiology exam delayed due to lab results not completed at this time. vm2 test not completed at this time. vm2
--- NOTE | 2019-04-09 18:43 | EDPHYS ---
Physician Documentation [facility] Name: Hillary Olivares Age: 43 yrs Sex: Female : 1975 Arrival Date: 04/09/2019 Time: 15:34 Bed 30 Private MD: GISELA Physician Jerzy Cisse HPI: 04/09 15:55 This 43 yrs old Female presents to ER via Ambulatory with complaints of kb Abdominal Pain. 15:55 The patient presents with abdominal pain in the lower abdomen. Onset: The kb symptoms/episode began/occurred 1 year(s) ago, and became worse. The symptoms do not radiate. Associated signs and symptoms: Pertinent positives: nausea, vomiting, and diarrhea, constipation. The symptoms are described as intermittent. Modifying factors: The symptoms are alleviated by nothing, the symptoms are aggravated by nothing. Severity of pain: At its worst the pain was moderate in the emergency department the pain has improved mildly. The patient has not experienced similar symptoms in the past. The patient has been recently seen by a physician:. Pt reports lower abd pain, n/v/d and constipation intermittently for a year. States the pain is more of a spasm. Reports the pain was really bad last night so that is why she came in today. . 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 - Social history:: Smoking status: Patient/guardian denies using tobacco. - Ebola Screening: : No symptoms or risks identified at this time. ROS: 15:53 Constitutional: Negative for fever, chills, and weight loss, ENT: Negative for injury, kb pain, and discharge, Neck: Negative for injury, pain, and swelling, Cardiovascular: Negative for chest pain, palpitations, and edema, Respiratory: Negative for shortness of breath, cough, wheezing, and pleuritic chest pain, Back: Negative for injury and pain, : Negative for injury, bleeding, discharge, and swelling, MS/Extremity: Negative for injury and deformity, Skin: Negative for injury, rash, and discoloration, Neuro: Negative for headache, weakness, numbness, tingling, and seizure. 15:53 Abdomen/GI: Positive for abdominal pain, nausea, vomiting, and diarrhea, constipation, Negative for abdominal cramps, abdominal distension, anorexia. Exam: 15:54 Constitutional: This is a well developed, well nourished patient who is awake, alert, kb and in no acute distress. Head/Face: Normocephalic, atraumatic. ENT: Nares patent. No nasal discharge, no septal abnormalities noted. Tympanic membranes are normal and external auditory canals are clear. Oropharynx with no redness, swelling, or masses, exudates, or evidence of obstruction, uvula midline. Mucous membranes moist. Neck: Trachea midline, no thyromegaly or masses palpated, and no cervical lymphadenopathy. Supple, full range of motion without nuchal rigidity, or vertebral point tenderness. No Meningismus. Chest/axilla: Normal chest wall appearance and motion. Nontender with no deformity. No lesions are appreciated. Cardiovascular: Regular rate and rhythm with a normal S1 and S2. No gallops, murmurs, or rubs. Normal PMI, no JVD. No pulse deficits. Respiratory: Lungs have equal breath sounds bilaterally, clear to auscultation and percussion. No rales, rhonchi or wheezes noted. No increased work of breathing, no retractions or nasal flaring. Abdomen/GI: Soft, non-tender, with normal bowel sounds. No distension or tympany. No guarding or rebound. No evidence of tenderness throughout. Back: No spinal tenderness. No costovertebral tenderness. Full range of motion. Skin: Warm, dry with normal turgor. Normal color with no rashes, no lesions, and no evidence of cellulitis. MS/ Extremity: Pulses equal, no cyanosis. Neurovascular intact. Full, normal range of motion. Neuro: Awake and alert, GCS 15, oriented to person, place, time, and situation. Cranial nerves II-XII grossly intact. Motor strength 5/5 in all extremities. Sensory grossly intact. Cerebellar exam normal. Normal gait. Vital Signs: 15:38 BP 132 / 82; Pulse 79; Resp 16 S; Temp 99.2(TE); Pulse Ox 100% on R/A; Height 5 ft. 3 aa5 in. (160.02 cm) (R); Pain 10/10; 15:40 Weight 52.3 kg (M); iw 16:42 BP 117 / 68; Pulse 53; Resp 15; Pulse Ox 100% on R/A; rv 17:01 BP 112 / 75; Pulse 56; Resp 15; Pulse Ox 100% ; rv 17:29 BP 122 / 75; Pulse 53; Resp 17 S; Pulse Ox 100% on R/A; ca1 17:46 BP 115 / 78; Pulse 51; Resp 15; Temp 99; Pulse Ox 100% ; rv 18:57 BP 114 / 74; Pulse 55; Resp 16; Temp 99; Pulse Ox 98% ; rv 15:40 Body Mass Index 20.42 (52.30 kg, 160.02 cm) iw MDM: 15:40 Patient medically screened. kb 15:52 Data reviewed: vital signs, nurses notes. Data interpreted: Pulse oximetry: on room air kb is 100 %. Interpretation: normal. 18:38 Counseling: I had a detailed discussion with the patient and/or guardian regarding: the m historical points, exam findings, and any diagnostic results supporting the discharge/admit diagnosis, lab results, radiology results, the need for outpatient follow up, to return to the emergency department if symptoms worsen or persist or if there are any questions or concerns that arise at home. ED course: I discussed lab results with the patient along with radiology results. Patient was advised to follow up with CONSTRUCTION SCHEDULER, GI, and pcp for reevaluation. Patient was otherwise given strict return precautions. Patient understood and agrees with the plan of care. . 04/09 15:51 Order name: Basic Metabolic Panel; Complete Time: 17:54 kb 04/09 15:51 Order name: CBC with Diff; Complete Time: 16:35 kb 04/09 15:51 Order name: TSH; Complete Time: 17:54 kb 04/09 15:54 Order name: Urine Dipstick--Ancillary (enter results); Complete Time: 09:56 ag 04/09 15:54 Order name: Urine --Ancillary (enter results); Complete Time: 09:56 ag 04/09 17:34 Order name: T4 Free; Complete Time: 17:54 EDMS 04/09 15:51 Order name: IV Saline Lock; Complete Time: 16:32 kb 04/09 15:51 Order name: Labs collected and sent; Complete Time: 16:32 kb 04/09 15:52 Order name: CT Abd/Pelvis - IV Contrast Only; Complete Time: 18:28 kb Administered Medications: 16:18 Drug: NS 0.9% 1000 ml Route: IV; Rate: 1000 ml; Site: right antecubital; rv 18:57 Follow up: IV Status: Completed infusion rv 16:32 Drug: Bentyl 20 mg Route: PO; rv 18:57 Follow up: Response: No adverse reaction rv Disposition: 04/09/19 18:42 Discharged to Home. Impression: Other specified conditions associated with female genital organs and menstrual cycle, Vomiting, Diarrhea, unspecified, Pneumonia. - Condition is Stable. - Discharge Instructions: Diarrhea, Adult, Nausea and Vomiting, Adult, Pelvic Pain, Female, Community-Acquired Pneumonia, Adult. - Prescriptions for Zofran ODT 4 mg Oral tablet,disintegrating - place 1 tablet by TRANSLINGUAL route every 4-6 hours; 20 tablet. Tylenol- Codeine #3 300-30 mg Oral Tablet - take 1 tablet by ORAL route every 6 hours As needed; 20 tablet. Zithromax Z- Oh 250 mg Oral Tablet - take 1 tablet by ORAL route as directed for 5 days Day 1 - take two (2) tablets one time. Day 2, 3, 4 , 5 take one (1) tablet once daily.; 6 tablet. - Medication Reconciliation Form, Thank You Letter, Antibiotic Education, Prescription Opioid Use form. - Follow up: Annita Fay MD; When: 2 - 3 days; Reason: Recheck today's complaints, Continuance of care, Re-evaluation by your physician. Follow up: Isma Mcadams MD; When: 2 - 3 days; Reason: Recheck today's complaints, Continuance of care, Re-evaluation by your physician. Addendum: 04/15/2019 16:46 Co-signature as Attending Physician, Jerzy Cisse MD I agree with the assessment and c keenan plan of care. Signatures: Dispatcher [employer] Kylie Herrera, SUBSCRIPTION AGENT-C SUBSCRIPTION AGENT-Jerzy Fuchs MD MD cha Mickail, Joel, PA PA Radha Rosa, RN RN aa5 Sam Gomes RN RN rv Corrections: (The following items were deleted from the chart) 04/09 18:58 18:42 04/09/2019 18:42 Discharged to Home. Impression: Other specified conditions rv associated with female genital organs and menstrual cycle; Vomiting; Diarrhea, unspecified; Pneumonia. Condition is Stable. Forms are Medication Reconciliation Form, Thank You Letter, Antibiotic Education, Prescription Opioid Use. Follow up: Annita Fay; When: 2 - 3 days; Reason: Recheck today's complaints, Continuance of care, Re-evaluation by your physician. Follow up: Isma Mcadams; When: 2 - 3 days; Reason: Recheck today's complaints, Continuance of care, Re-evaluation by your physician. sam
[2019-04-09 20:10] LABS: Urine Blood NEGATIVE (NEG); Urine Glucose NEGATIVE (NEG); Urine Protein TRACE (NEG); Urine Specific Gravity >1.030 (1.005-1.030)
== END 2019-04-09 18:58 | disposition home or self-care (01) ==
LOC: ER 15:32
DX: N94.89 Other specified conditions associated with female genital organs and menstrual cycle (principal); R11.10 Vomiting, unspecified; R19.7 Diarrhea, unspecified; J18.9 Pneumonia, unspecified organism; E03.9 Hypothyroidism, unspecified
CPT/HCPCS: 36415; 74177; 80048; 81003; 81025; 84439; 84443; 85025; 96360; 96361; 99284; J7030; Q9967

== ENCOUNTER 2019-05-24 17:21 | Emergency (ER) | payer SELFPAY ==
--- OUTSIDE RECORDS SUMMARY | 2019-05-24 17:22 | XMS REPORT ---
:1975 [facility] Address [address] [place] [address] [address] [place] [address] Care Team Providers Name Role Phone Unavailable Unavailable Unavailable Problems This patient has no known problems. Allergies, Adverse Reactions, Alerts This patient has no known allergies or adverse reactions. Medications This patient has no known medications.
[2019-05-24] MEDS ORDERED: NA CHLORIDE 0.9% 1,000 ML ONE (18:16)
[2019-05-24] MEDS ORDERED: ONDANSETRON 4 MG/2 ML VIAL ONE (18:16)
[2019-05-24 18:24] LABS: Basophils % 0.8 % (0-1.3); Hematocrit 38.4 % (36.0-45.0); Lymphocytes % 26.2 % (15.3-44.8); RBC Red Blood Cell Count 4.29 M/uL (3.86-4.86)
[2019-05-24 18:30] LABS: Urine Blood NEGATIVE (NEG); Urine Glucose NEGATIVE (NEG); Urine Protein NEGATIVE (NEG); Urine Specific Gravity 1.025 (1.005-1.030)
[2019-05-24 18:33] LABS: Urine Bacteria 20-50 /HPF (<20); Urine Culture Reflex Order REFLEXED; Urine Mucus 1+ /HPF (NONE SEEN); Urine RBC NONE SEEN /HPF (NONE SEEN)
[2019-05-24 18:36] LABS: Albumin 3.7 g/dL (3.4-5.0); Bilirubin Direct 0.2 mg/dL (0-0.2)
[2019-05-24] MEDS ORDERED: MORPHINE 2 MG/ML SYR ONE (19:48)
--- NOTE | 2019-05-24 20:10 | RAD REPORT ---
EXAM DESCRIPTION: CT - Abdomen Pelvis W Contrast - 05/24/2019 7:39 pm CLINICAL HISTORY: Abdominal pain. COMPARISON: none. TECHNIQUE: Computed axial tomography of the abdomen pelvis was obtained. 100 cc Isovue-300 was admin istered intravenously. Oral contrast was not requested which limits evaluation of bowel. All CT scans are performed using dose optimization technique as appropriate and may include automated exposure control or mA/KV adjustment according to patient size. FINDINGS: 14 millimeter hepatic cyst. 10 millimeter intermediate density mass right lobe of the liver. It is unchanged in size from the prior exam and likely benign Spleen, pancreas, adrenal and kidneys appear unremarkable. Cholelithiasis There is no evidence of diverticulitis. Normal appendix Prominent periuterine veins Mild tree-in-bud opacities within the lingula . IMPRESSION: Cholelithiasis Mild tree-in-bud opacities within the lingula may indicate an atypical infection
--- NOTE | 2019-05-24 20:50 | EDPHYS ---
Physician Documentation [facility] Name: Hillary Olivares Age: 43 yrs Sex: Female : 1975 Arrival Date: 05/24/2019 Time: 17:22 Bed 13 Private MD: ED Physician Jayy Soria HPI: 05/24 18:05 This 43 yrs old Female presents to ER via Wheelchair with complaints of cp Abdominal Pain, Decreased Appetite. 18:05 The patient presents with abdominal pain in the lower abdomen. Onset: The cp symptoms/episode began/occurred this morning. 18:05 The symptoms do not radiate. Associated signs and symptoms: Pertinent positives: cp nausea, Pertinent negatives: blood in stools, chest pain, constipation, diarrhea, dysuria, fever, hematuria, vaginal discharge, vomiting. The symptoms are described as waxing/waning. Severity of pain: in the emergency department the pain is unchanged despite home interventions. The patient has experienced similar episodes in the past, over the past year. The patient has not recently seen a physician, and does not have an established primary care provider. Historical: - Allergies: 17:29 No Known Drug Allergies; tw2 - Home Meds: 17:29 Zofran Oral [Active]; tw2 - PMHx: 17:29 Hypothyroidism; tw2 - PSHx: 17:29 Lung SX; Hysterectomy; tw2 - Immunization history:: Adult Immunizations. - Social history:: Smoking status: . - Ebola Screening: : Patient denies exposure to infectious person. ROS: 18:10 Constitutional: Negative for body aches, chills, fever, poor PO intake. cp 18:10 Eyes: Negative for injury, pain, redness, and discharge. cp 18:10 ENT: Negative for drainage from ear(s), ear pain, sore throat, difficulty swallowing, difficulty handling secretions. 18:10 Cardiovascular: Negative for chest pain, edema, palpitations. 18:10 Respiratory: Negative for cough, shortness of breath, wheezing. 18:10 Abdomen/GI: Positive for abdominal pain, nausea, of the right lower quadrant and left lower quadrant, Negative for diarrhea, constipation, abdominal distension, active vomiting. 18:10 Back: Negative for radiated pain. 18:10 : Negative for urinary symptoms, vaginal bleeding, vaginal discharge. 18:10 Skin: Negative for rash. 18:10 Neuro: Negative for altered mental status, headache, weakness. 18:10 All other systems are negative. Exam: 18:20 Constitutional: The patient appears in no acute distress, alert, awake, non-toxic, well cp developed, well nourished. 18:20 Head/Face: Normocephalic, atraumatic. cp 18:20 Eyes: Periorbital structures: appear normal, Conjunctiva: normal, no exudate, no injection, Sclera: no appreciated abnormality, Lids and lashes: appear normal, bilaterally. 18:20 ENT: External ear(s): are unremarkable, Nose: is normal, Mouth: Lips: moist, Oral mucosa: pink and intact, moist, Posterior pharynx: is normal, airway is patent, no erythema, no exudate. 18:20 Chest/axilla: Inspection: normal. 18:20 Cardiovascular: Rate: normal, Rhythm: regular. 18:20 Respiratory: the patient does not display signs of respiratory distress, Respirations: normal, no use of accessory muscles, no retractions, no splinting, no tachypnea, labored breathing, is not present, Breath sounds: are clear throughout, no decreased breath sounds, no stridor, no wheezing. 18:20 Abdomen/GI: Inspection: abdomen appears normal, Bowel sounds: active, all quadrants, Palpation: soft, in all quadrants, mild abdominal tenderness, in the right lower quadrant and left lower quadrant. 18:20 Back: pain, is absent, ROM is normal, CVA tenderness, is absent. Vital Signs: 17:27 BP 138 / 75; Pulse 76; Resp 17; Temp 98.2(O); Pulse Ox 100% on R/A; Weight 52.16 kg tw2 (M); Height 5 ft. 3 in. (160.02 cm); Pain 10/10; 18:34 BP 127 / 75; Pulse 61; Resp 18; Pulse Ox 100% on R/A; ph 19:16 BP 135 / 72; Pulse 57; Resp 16 S; Temp 97.7(O); Pulse Ox 100% on R/A; cc3 20:34 BP 107 / 75; Pulse 54; Resp 18 S; Pulse Ox 100% on R/A; Pain 2/10; cc3 21:00 BP 110 / 77; Pulse 60; Resp 17 S; Pulse Ox 100% on R/A; Pain 1/10; cc3 17:27 Body Mass Index 20.37 (52.16 kg, 160.02 cm) tw2 MDM: 17:43 Patient medically screened. cp 19:00 Differential diagnosis: appendicitis, cholecystitis, Cholelithiasis, diverticulitis, cp non-specific abd pain, Pyelonephritis, Ureterolithiasis, urinary tract infection, colitis. 20:48 Data reviewed: vital signs, nurses notes, lab test result(s), radiologic studies, CT cp scan, and as a result, I will discharge patient. 20:48 Counseling: I had a detailed discussion with the patient and/or guardian regarding: the cp historical points, exam findings, and any diagnostic results supporting the discharge/admit diagnosis, lab results, radiology results, to return to the emergency department if symptoms worsen or persist or if there are any questions or concerns that arise at home. 20:48 Response to treatment: improved. Special discussion: Based on the patient's Hx, exam, cp and Dx evaluation, there is no indication for emergent surgery or inpatient Tx. It is understood by the patient/guardian that if the Sx's persist or worsen they need to return immediately for re-evaluation. 05/24 17:55 Order name: Basic Metabolic Panel; Complete Time: 19:04 cp 18 20:30 Interpretation: Normal except: CL 108; GFR 70. cp 05/24 17:55 Order name: CBC with Diff; Complete Time: 19:04 cp 18 17:55 Order name: Creatinine for Radiology; Complete Time: 19:04 cp 18 17:55 Order name: Hepatic Function; Complete Time: 19:04 cp 18 20:37 Interpretation: Normal except: AST 13. cp 18 17:55 Order name: Lipase; Complete Time: 19:04 cp 18 17:56 Order name: Urine Microscopic Only; Complete Time: 19:04 cp 18 20:30 Interpretation: Normal except: UWBC 5-10; UBACT 20-50; SQEPI 5-10. cp 18 18:25 Order name: Urine Dipstick--Ancillary (enter results); Complete Time: 19:04 eb 05/24 18:35 Order name: Urine Culture EDMS 05/24 19:05 Order name: CT Abd/Pelvis - IV Contrast Only; Complete Time: 20:29 cp 05/24 17:55 Order name: IV Saline Lock; Complete Time: 18:12 cp 05/24 17:55 Order name: Labs collected and sent; Complete Time: 18:13 cp 05/24 17:56 Order name: Urine Dipstick-Ancillary (obtain specimen); Complete Time: 18:21 cp Administered Medications: 18:33 Drug: NS 0.9% 1000 ml Route: IV; Rate: 1 bolus; Site: right forearm; ph 19:20 Follow up: Response: No adverse reaction; IV Status: Completed infusion; IV Intake: cc3 1000ml 18:34 Drug: Zofran 4 mg Route: IVP; Site: right forearm; ph 19:20 Follow up: Response: No adverse reaction; Nausea is decreased cc3 19:48 CANCELLED (Physician Discretion): morphine 2 mg IVP once; (PAIN>8) RASS on ADMN: cp Combtv4, Very Agttd3, Agttd2, Rstlss1, AlertClm0, Drwsy-1, LtSdtn-2, ModSdtn-3, DpSdtn-4, UnArsble-5 x2 19:51 Drug: morphine 2 mg Route: IVP; Site: right antecubital; ca1 20:30 Follow up: Response: No adverse reaction; Pain is decreased; RASS: Alert and Calm (0) cc3 20:55 Drug: TORadol - Ketorolac 15 mg {Note: RASS 0.} Route: IVP; Site: right forearm; cc3 21:08 Follow up: Response: No adverse reaction; Pain is decreased; RASS: Alert and Calm (0) cc3 Disposition: 05/24/19 20:49 Discharged to Home. Impression: Unspecified abdominal pain, Cholelithiasis. - Condition is Stable. - Discharge Instructions: Abdominal Pain, Adult, Cholelithiasis. - Prescriptions for Bentyl 20 mg Oral Tablet - take 2 tablet by ORAL route every 6 hours As needed; 40 tablet. Zofran 4 mg Oral Tablet - take 1 tablet by ORAL route every 12 hours As needed; 20 tablet. Zithromax Z- Oh 250 mg Oral Tablet - take 1 tablet by ORAL route as directed for 5 days Day 1 - take two (2) tablets one time. Day 2, 3, 4 , 5 take one (1) tablet once daily.; 6 tablet. - Medication Reconciliation Form, Thank You Letter, Antibiotic Education, Prescription Opioid Use form. - Follow up: Jevon Kumar MD; When: 1 - 2 days; Reason: cholelithiasis. - Problem is new. - Symptoms have improved. Signatures: Dispatcher [employer] EDMS Daina Hernandez RN RN ph Jerzy Velez PA PA cp Ally Skaggs RN RN tw2 Danni Thomas cc3 Sanjuana Colin RN RN ca1 Corrections: (The following items were deleted from the chart) 19:48 19:47 morphine 2 mg IVP once; (PAIN>8) RASS on ADMN: Combtv4, Very Agttd3, Agttd2, cp Rstlss1, AlertClm0, Drwsy-1, LtSdtn-2, ModSdtn-3, DpSdtn-4, UnArsble-5 x2 ordered. cp 21:08 20:49 05/24/2019 20:49 Discharged to Home. Impression: Unspecified abdominal pain; cc3 Cholelithiasis. Condition is Stable. Forms are Medication Reconciliation Form, Thank You Letter, Antibiotic Education, Prescription Opioid Use. Follow up: Jevon Kumar; When: 1 - 2 days; Reason: cholelithiasis. Problem is new. Symptoms have improved. cp
--- NOTE | 2019-05-24 20:50 | ER ---
Nurse's Notes [facility] Name: Hillary Olivares Age: 43 yrs Sex: Female : 1975 Arrival Date: 05/24/2019 Time: 17:22 Bed 13 Private MD: Diagnosis: Unspecified abdominal pain;Cholelithiasis Presentation: 05/24 17:26 Presenting complaint: Patient states: i have having abdominal pain since about 4 am tw2 this morning, i havent been feeling right for an year, i am having nausea and vomiting. Transition of care: patient was not received from another setting of care. Onset of symptoms was May 24, 2019. Risk Assessment: Do you want to hurt yourself or someone else? Patient reports no desire to harm self or others. Initial Sepsis Screen: Does the patient meet any 2 criteria? No. Patient's initial sepsis screen is negative. Does the patient have a suspected source of infection? No. Patient's initial sepsis screen is negative. Care prior to arrival: None. 17:26 Method Of Arrival: Wheelchair tw2 17:26 Acuity: ALBERTO 3 tw2 Triage Assessment: 17:29 General: Appears uncomfortable, Behavior is calm, cooperative, appropriate for age. tw2 Pain: Complains of pain in abdomen. GI: Reports lower abdominal pain, upper abdominal pain, nausea. Historical: - Allergies: 17:29 No Known Drug Allergies; tw2 - Home Meds: 17:29 Zofran Oral [Active]; tw2 - PMHx: 17:29 Hypothyroidism; tw2 - PSHx: 17:29 Lung SX; Hysterectomy; tw2 - Immunization history:: Adult Immunizations. - Social history:: Smoking status: . - Ebola Screening: : Patient denies exposure to infectious person. Screenin:36 Abuse screen: Denies threats or abuse. Denies injuries from another. Nutritional ph screening: No deficits noted. Nutritional screening: No deficits noted. Tuberculosis screening: No symptoms or risk factors identified. Fall Risk None identified. Assessment: 18:35 General: Appears in no apparent distress. comfortable, slender, Behavior is calm, ph cooperative, appropriate for age, Denies fever. Pain: Complains of pain in right lower quadrant and left lower quadrant. Neuro: Level of Consciousness is awake, alert, obeys commands, Oriented to person, place, time, situation. Cardiovascular: Capillary refill < 3 seconds in bilateral fingers Patient's skin is warm and dry. Respiratory: Airway is patent Respiratory effort is even, unlabored. GI: Abdomen is flat, non-distended, Bowel sounds present X 4 quads. Abd is soft X 4 quads Reports lower abdominal pain, nausea, Patient currently denies diarrhea, vomiting. Derm: Skin is intact, is healthy with good turgor, Skin is pink, warm \T\ dry. Musculoskeletal: Circulation, motion, and sensation intact. Range of motion: intact in all extremities. 19:16 Reassessment: Patient appears in no apparent distress at this time. Patient and/or cc3 family updated on plan of care and expected duration. Pain level reassessed. Patient is alert, oriented x 3, equal unlabored respirations, skin warm/dry/pink. Received this female patient from morning shift RN Daina as a case of abdominal pain, with IV cannula gauge 22 at the right forearm with ongoing IV bolus of NS 1L which is about to be consumed infusing well. Patient denies pain at this time. General: Appears in no apparent distress. comfortable, Behavior is calm, cooperative, appropriate for age, Denies fever. Neuro: Level of Consciousness is awake, alert, obeys commands, Oriented to person, place, time, situation, Appropriate for age. Cardiovascular: Denies chest pain, Capillary refill < 3 seconds Patient's skin is warm and dry. Respiratory: Airway is patent Respiratory effort is even, unlabored, Respiratory pattern is regular, symmetrical. GI: Abdomen is flat, non-distended, Bowel sounds present X 4 quads. Abd is soft X 4 quads Patient currently denies diarrhea, vomiting. : No signs and/or symptoms were reported regarding the genitourinary system. EENT: No signs and/or symptoms were reported regarding the EENT system. Derm: Skin is intact, is healthy with good turgor, Skin is pink, warm \T\ dry. normal. Musculoskeletal: Circulation, motion, and sensation intact. Range of motion: intact in all extremities. 19:25 Reassessment: Patient taken by brain wave technician to their department by wheelchair. cc3 19:40 Reassessment: Patient appears in no apparent distress at this time. Patient and/or cc3 family updated on plan of care and expected duration. Pain level reassessed. Patient is alert, oriented x 3, equal unlabored respirations, skin warm/dry/pink. Patient came back from CT scan department, awaiting result. 20:33 Reassessment: Patient appears in no apparent distress at this time. Patient and/or cc3 family updated on plan of care and expected duration. Pain level reassessed. Patient is alert, oriented x 3, equal unlabored respirations, skin warm/dry/pink. Patient denies pain at this time. Patient states feeling better. Patient states symptoms have improved. 21:08 Reassessment: Patient appears in no apparent distress at this time. Patient and/or cc3 family updated on plan of care and expected duration. Pain level reassessed. Patient is alert, oriented x 3, equal unlabored respirations, skin warm/dry/pink. JOYCE Velez discharged the patient home with prescriptions given. IV cannula removed and patient left ER vitally stable and ambulatory with her relative. No valuables left in the patient's room. Patient denies pain at this time. Patient states feeling better. Patient states symptoms have improved. Vital Signs: 17:27 BP 138 / 75; Pulse 76; Resp 17; Temp 98.2(O); Pulse Ox 100% on R/A; Weight 52.16 kg tw2 (M); Height 5 ft. 3 in. (160.02 cm); Pain 10/10; 18:34 BP 127 / 75; Pulse 61; Resp 18; Pulse Ox 100% on R/A; ph 19:16 BP 135 / 72; Pulse 57; Resp 16 S; Temp 97.7(O); Pulse Ox 100% on R/A; cc3 20:34 BP 107 / 75; Pulse 54; Resp 18 S; Pulse Ox 100% on R/A; Pain 2/10; cc3 21:00 BP 110 / 77; Pulse 60; Resp 17 S; Pulse Ox 100% on R/A; Pain 1/10; cc3 17:27 Body Mass Index 20.37 (52.16 kg, 160.02 cm) tw2 ED Course: 17:22 Patient arrived in ED. as 17:27 Triage completed. tw2 17:27 Arm band placed on. tw2 17:31 Daina Hernandez, ALLI is Primary Nurse. ph 17:32 Jerzy Velez PA is PHCP. cp 17:32 Alvaro Lopez MD is Attending Physician. cp 17:32 [facility] pm1 18:07 Initial lab(s) drawn, by me, sent to lab. Inserted saline lock: 22 gauge in right dh3 forearm, using aseptic technique. Blood collected. 18:21 Urine collected: clean catch specimen, clear. dh3 18:36 Patient has correct armband on for positive identification. Bed in low position. Call ph light in reach. Side rails up X 1. Pulse ox on. NIBP on. Door closed. Noise minimized. Warm blanket given. Head of bed elevated. 19:39 CT completed. Patient tolerated procedure well. Patient moved back from CT. mw3 19:40 CT Abd/Pelvis - IV Contrast Only In Process Unspecified. EDMS 20:33 Jayy Soria MD is Attending Physician. cp 20:48 Jevon Kumar MD is Referral Physician. cp 21:09 No provider procedures requiring assistance completed. IV discontinued, intact, cc3 bleeding controlled, No redness/swelling at site. Pressure dressing applied. Administered Medications: 18:33 Drug: NS 0.9% 1000 ml Route: IV; Rate: 1 bolus; Site: right forearm; ph 19:20 Follow up: Response: No adverse reaction; IV Status: Completed infusion; IV Intake: cc3 1000ml 18:34 Drug: Zofran 4 mg Route: IVP; Site: right forearm; ph 19:20 Follow up: Response: No adverse reaction; Nausea is decreased cc3 19:48 CANCELLED (Physician Discretion): morphine 2 mg IVP once; (PAIN>8) RASS on ADMN: cp Combtv4, Very Agttd3, Agttd2, Rstlss1, AlertClm0, Drwsy-1, LtSdtn-2, ModSdtn-3, DpSdtn-4, UnArsble-5 x2 19:51 Drug: morphine 2 mg Route: IVP; Site: right antecubital; ca1 20:30 Follow up: Response: No adverse reaction; Pain is decreased; RASS: Alert and Calm (0) cc3 20:55 Drug: TORadol - Ketorolac 15 mg {Note: RASS 0.} Route: IVP; Site: right forearm; cc3 21:08 Follow up: Response: No adverse reaction; Pain is decreased; RASS: Alert and Calm (0) cc3 Intake: 19:20 IV: 1000ml; Total: 1000ml. cc3 Outcome: 20:49 Discharge ordered by . cp 21:08 Patient left the ED. cc3 21:08 Discharged to home ambulatory, with family. cc3 21:08 Condition: stable 21:08 Discharge instructions given to patient, family, Instructed on discharge instructions, follow up and referral plans. medication usage, Demonstrated understanding of instructions, follow-up care, medications, Prescriptions given X 3. Signatures: Dispatcher [employer] EDMassiel Pace Patricia, RN RN ph Rosie, Jerzy, JOYCE PA Ganga Vogel, REPLANTING MACHINE CREWMAN REPLANTING MACHINE CREWMAN pm1 Ally Sakggs RN RN tw2 [place] 3 Amanda Adrian 3 Danni Thomas cc3 Sanjuana Colin RN RN ca1
[2019-05-24] MEDS ORDERED: KETOROLAC 30 MG/ML INJ ONE (20:55)
== END 2019-05-24 21:08 | disposition home or self-care (01) ==
LOC: ER 17:21
DX: K80.20 Calculus of gallbladder without cholecystitis without obstruction (principal); E03.9 Hypothyroidism, unspecified
CPT/HCPCS: 36415; 74177; 80048; 80076; 81003; 81015; 83690; 85025; 87086; 87088; J2270; J2405; J7030; Q9967

== ENCOUNTER 2020-02-25 19:59 | Emergency (ER) | payer SELFPAY ==
--- OUTSIDE RECORDS SUMMARY | 2020-02-25 20:02 | XMS REPORT | Summary of Care ---
:[address] [facility] - [facility] Address [address] [place] [address] Care Team Providers Name Role Phone LEMUEL Mosquera Primary Care Provider Reason for Referral (Routine) Status Reason Specialty Diagnoses / Referred By Referred To Procedures Contact Contact New Request Cardiology Diagnoses Palpitations Briana Howell MD Procedures ECHO ROUTINE W/DOPPLER COLOR Preferred Location: [facility] [address] [place] [address] [address] [place] [phone] Reason for Visit Reason Comments New Patient Establish Care/HTN Ekg Done today in Office Encounter Details Date Type Department Care Team Description 12/15/2019 Office Visit [facility] Briana Howell M D Palpitations (Primary Dx); Cardiology- [address] Essential hypertension 146 [facility] [address] [place], [place] [phone] Allergies Active Allergy Reactions Severity Noted Date Comments Codeine Hives High 11/20/2019 documented as of this encounter (statuses as of 12/15/2019) Medications Medication Sig Dispensed Refills Start Date End Date Status metoprolol succinate XL Take 1 tablet by 30 tablet 3 0 Active 25 mg 24 hr mouth daily. tabletIndications: Palpitations documented as of this encounter (statuses as of 12/15/2019) Active Problems Problem Noted Date S/P hysterectomy 11/20/2019 Tobacco use disorder 11/20/2019 BMI 21.0-21.9, adult 11/20/2019 Cervical polyp 11/20/2019 Primary hypothyroidism 06/30/2018 documented as of this encounter (statuses as of 12/15/2019) Resolved Problems Problem Noted Date Resolved Date Pre-existing essential hypertension during , 201911/20/2019 antepartum documented as of this encounter (statuses as of 12/15/2019) Immunizations Name Administration Dates Next Due Influenza Virus Vaccine Quad .5 mL IM 6+ MO 11/20/2019 documented as of this encounter Social History Tobacco Use Types Packs/Day Years Used Date Current Some Day Smoker Cigarettes 0.25 15 Smokeless Tobacco: Never Used Alcohol Use Drinks/Week oz/Week Comments Yes occasional Sex Assigned at Date Recorded Not on file Job Start Date Occupation Industry Not on file Not on file Not on file Travel History Travel Start Travel End No recent travel history available. documented as of this encounter Last Filed Vital Signs Vital Sign Reading Time Taken Comments Blood Pressure 151/85 12/15/2019 2:26 PM CDT Pulse 86 12/15/2019 2:26 PM CDT Temperature - - Respiratory Rate 19 12/15/2019 2:22 PM CDT Oxygen Saturation 100% 12/15/2019 2:22 PM CDT Inhaled Oxygen Concentration - - Weight 54 kg (119 lb 1.6 oz) 12/15/2019 2:22 PM CDT Height 160 cm (5' 3") 12/15/2019 2:22 PM CDT Body Mass Index 21.1 12/15/2019 2:22 PM CDT documented in this encounter Progress Notes Briana Howell MD - 12/15/2019 2:20 PM CDT CARDIOLOGY CLINIC NOTE 12/15/2019 Reason for Referral/Presenting Complaint: HTN, palpitations PCP: Kailyn Mosquera History of Present Illness: Hillary Olivares is a 44 years old female here for HTN 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 Her BP has been elevated almost all the times in the clinics. Does not check at home. She is asking how to manage it. Occasional palpitations lasting seconds. Cardiovascular testing: EKG: Normal sinus rhythm. Normal EKG. Review of Systems: General: (-) fever, (-) chills, (-) weight change, (-) dizziness, (-) fatigue Skin: (-) rash HEENT: (-) headache, (-) change in vision Neck: (-) difficulty swallowing Heme: negative Resp: (-) cough, (-) dyspnea on exertion Cardio: (-) chest pain, (+) palpitations, (-) syncope GI: (-) vomiting, (-) diarrhea : negative Endo: (-) diabetes, (-) thyroid disease Neuro: (-) numbness, (-) tingling, (-) weakness Back: (-) pain LUCIA: (-) muscle pain, (-) claudication Psych: (-) anxiety, (-) depression Past Medical History: Past Medical History: Diagnosis Date Endometriosis Pneumothorax 2002 Pre-existing essential hypertension during , antepartum 11/20/2019 Thyroid disease levels WNL Current Medications: Current Outpatient Medications Medication Sig Dispense Refill metoprolol succinate XL 25 mg 24 hr tablet Take 1 tablet by mouth daily. 30 tablet 3 No current facility-administered medications for this visit. Social History: Social History Socioeconomic History Marital status: Single Spouse name: Not on file Number of children: Not on file Years of education: Not on file Highest education level: Not on file Occupational History Not on file Social Needs Financial resource strain: Not on file Food insecurity: Worry: Not on file Inability: Not on file Transportation needs: Medical: Not on file Non-medical: Not on file Tobacco Use Smoking status: Current Some Day Smoker Packs/day: 0.25 Years: 15.00 Pack years: 3.75 Types: Cigarettes Smokeless tobacco: Never Used Substance and Sexual Activity Alcohol use: Yes Comment: occasional Drug use: Not Currently Types: Cocaine Comment: quit in 1995 Sexual activity: Yes Partners: Male control/protection: Surgical Comment: last sexual intercourse 11/20/2018 Lifestyle Physical activity: Days per week: Not on file Minutes per session: Not on file Stress: Not on file Relationships Social connections: Talks on phone: Not on file Gets together: Not on file Attends faith service: Not on file Active member of club or organization: Not on file Attends meetings of clubs or organizations: Not on file Relationship status: Not on file Intimate partner violence: Fear of current or ex partner: Not on file Emotionally abused: Not on file Physically abused: Not on file Forced sexual activity: Not on file Other Topics Concern Not on file Social History Narrative Nondenominational preference none. Patient lives with mother. Family History Family History Problem Relation Age of Onset Thyroid Mother Hypertension Mother GI Mother IBS Depression Mother High cholesterol Mother Heart Mother Thyroid Sister Psychiatry Sister manic depressive Stroke Father No Significant Medical Problems Son Cancer Maternal Aunt breast Heart Maternal Uncle AL Heart Maternal Grandfather AL Thyroid Sister Psychiatry Sister No Significant Medical Problems Son Physical Examination: BP (!) 151/85 | Pulse 86 | Resp 19 | Ht 5' 3" (1.6 m) | Wt 119 lb 1.6 oz (54 kg) | LMP (LMP Unknown) | SpO2 100% | BMI 21.10 kg/m Constitutional: alert and oriented x 3 (person, place and date/time); no apparent distress ENT: normocephalic atraumatic, supple, no lymphadenopathy, no bruits, no JVD Lungs: clear to auscultation bilaterally Cardiovascular: S1, S2 normal, regular; no murmurs, rubs or gallops GI: soft; non-tender; non-distended; normoactive bowel sounds : not examined Musculoskeletal: Extremities: no clubbing, cyanosis, or edema Skin: no rashes Neuro: no focal deficits Assessment/Plan: ICD-10-CM ICD-9-CM 1. Palpitations R00.2 785.1 2. Essential hypertension I10 401.9 HTN--BP has been elevated in multiple occasions. Given family h/o HTN and strokes, will start antihypertensives. Her palpitation is likely premature beats. Will start Toprol XL 25 mg daily. Daily home BP log. Patient was counseled for lifestyle modifications including: diet, exercise and smoking cessation Thank you for allowing us to participate in the care of your patient. Please feel free to contact usfor any questions or if we can be of further assistance. Briana Howell MD, FACC, ZAKI Medical Librarian, Division of Cardiology [facility] documented in this encounter Plan of Treatment Date Type Specialty Care Team Description 12/15/2019 Laboratory Only Cardiology Briana Howell M D [address] [address] [phone] Pc, Adc Echo Room 1 - 03/16/2020 Office Visit Cardiology Briana Howell M D 146 [facility] [address] [place], [place] [address] [phone] 07/28/2020 Office Visit Pulmonary Disease Jani Nadiaandrening [address] [place] [phone] Name Type Priority Associated Diagnoses Order S chedule EKG-12 LEAD ROUTINE HEART STATION Routine Ordered : 12/15/2019 Health Maintenance Due Date Last Done Comments Breast Cancer Screening 08/11/2019 08/11/2018 (MAMMOGRAM) DTaP,Tdap,and Td Vaccines (1 - 11/18/2020 P ostponed from 1985 Tdap) (Alternative Christos delines) PAP SMEAR 11/20/2022 11/20/2019 INFLUENZA VACCINE Completed 11/20/2019 PNEUMOCOCCAL 0-64 YEARS COMBINED Discontinued SERIES documented as of this encounter Results Not on filedocumented in this encounter Visit Diagnoses Diagnosis Palpitations - Primary Essential hypertension Unspecified essential hypertension documented in this encounter
--- OUTSIDE RECORDS SUMMARY | 2020-02-25 20:02 | XMS REPORT ---
:1975 Author Organization [facility] t Address [address] [place] [place] [address] Care Team Providers Name Role Phone Dante TRUONG Attending Clinician Pc, Echo Room 1 - Attending Clinician Unavailable Doctor Unassigned, Name Attending Clinician Unavailable Problems This patient has no known problems. Allergies, Adverse Reactions, Alerts This patient has no known allergies or adverse reactions. Medications This patient has no known medications. Procedures This patient has no known procedures. Encounters Start End Encounter Admission Attending Care Care Encounter Source Date/Time Date/Time Type Type Clinicians Facility Department ID 2019-12-29 2019-12-29 Telephone [facility] [id number] 00:00:00 00:00:00 [place] [id number] [place] [id number] Professio [phone] [address] 2019-12-15 2019-12-15 Laboratory Pc, [facility] [id number] 15:02:38 16:02:38 Only Echo Room 1 [place] [id number] - [place] [id number] Professio [phone] [address] 2019-12-15 2019-12-15 Office [facility] [id number] 13:54:15 15:03:02 Visit Briana Peters [id number] [place] [id number] Professio [phone] [address] 2019-12-15 2019-12-15 Orders Doctor ROMO [id number] 00:00:00 00:00:00 Only Unassigned, NABIL [id number] [place] [facility] [id number] [id number] Results This patient has no known results.
--- OUTSIDE RECORDS SUMMARY | 2020-02-25 20:03 | XMS REPORT | Summary of Care ---
:1975 Author Organization [facility] - [facility] Address [address] [place] [address] Care Team Providers Name Role Phone LEMUEL Mosquera Primary Care Provider Reason for Referral (Routine) Status Reason Specialty Diagnoses / Referred By Referred To Procedures Contact Contact New Request Cardiology Diagnoses Palpitations Briana Howell MD Procedures ECHO ROUTINE W/DOPPLER COLOR Preferred Location: [facility] [address] [place] [address] [address] [place] [phone] Reason for Visit Reason Comments New Patient Establish Care/HTN Ekg Done today in Office Encounter Details Date Type Department Care Team Description 12/15/2019 Office Visit [facility] Briana Howell M D Palpitations (Primary Dx); Cardiology- [address] Essential hypertension 146 [facility], [address] [place], [place] [phone] Allergies Active Allergy Reactions Severity Noted Date [...] old female here for HTN 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 Her BP has been elevated almost [...] file Gets together: Not on file Attends mandaeism service: Not on file Active member of [...] Concern Not on file Social History Narrative Religion preference none. Patient lives with mother. Family History Family History Problem Relation Age of Onset Thyroid Mother Hypertension Mother GI Mother IBS Depression Mother High cholesterol Mother Heart Mother Thyroid Sister Psychiatry Sister manic depressive Stroke Father No Significant Medical Problems Son Cancer Maternal Aunt breast Heart Maternal Uncle MD Heart Maternal Grandfather MD Thyroid Sister Psychiatry Sister No Significant Medical [...] further assistance. Briana Howell MD, FACC, ZAKI Physicist [employer], Division of Cardiology [facility] documented in this encounter Plan of Treatment Date Type Specialty Care Team Description 03/16/2020 Office Visit Cardiology Briana Howell M D [address] [place] [address] [phone] 07/28/2020 Office Visit Pulmonary Disease Jocelin Gunter DO [address] [place] [address] [phone] Name Type Priority Associated Diagnoses Order S [...] Unspecified essential hypertension documented in this encounter Insurance Payer Benefit Plan Subscriber ID Effective Phone Address Typ e / Group Dates [place] [facility] [place]. [id number] 2018-Pre [phone] [facility] sent [address] [place] [address] documented as of this encounter
--- OUTSIDE RECORDS SUMMARY | 2020-02-25 20:03 | XMS REPORT | Summary of Care ---
:1975 Author Organization [facility] - [facility] Address [address] [place] [address] Care Team Providers Name Role Phone LEMUEL Mosquera Primary Care Provider Reason for Referral (Routine) Status Reason Specialty Diagnoses / Referred By Referred To Procedures Contact Contact New Request Cardiology Diagnoses Palpitations Briana Howell MD Procedures ECHO ROUTINE W/DOPPLER COLOR Preferred Location: [facility] [address] [place] [address] [address] [place] [phone] Reason for Visit Reason Comments New Patient Establish Care/HTN Ekg Done today in Office Encounter Details Date Type Department Care Team Description 12/15/2019 Office Visit [facility] Briana Howell M D Palpitations (Primary Dx); Cardiology- [address] Essential hypertension 146 [facility], [address] [place], [place] [phone] Allergies Active Allergy Reactions Severity Noted Date [...] old female here for HTN 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 Her BP has been elevated almost [...] file Gets together: Not on file Attends jew service: Not on file Active member of [...] Concern Not on file Social History Narrative Mandaeism preference none. Patient lives with mother. Family History Family History Problem Relation Age of Onset Thyroid Mother Hypertension Mother GI Mother IBS Depression Mother High cholesterol Mother Heart Mother Thyroid Sister Psychiatry Sister manic depressive Stroke Father No Significant Medical Problems Son Cancer Maternal Aunt breast Heart Maternal Uncle [place] Heart Maternal Grandfather [place] Thyroid Sister Psychiatry Sister No Significant Medical [...] further assistance. Briana Howell MD, FACC, ZAKI Wood Coater, Division of Cardiology [facility] documented in this encounter Plan of Treatment Date Type Specialty Care Team Description 12/15/2019 Laboratory Only Cardiology Briana Howell M D [address] [place] [address] [place] [address] Arrived Stephie Márquez MD 146 [facility] [address] [address] [phone] Pc, Adc Echo Room 1 - 03/16/2020 Office Visit Cardiology Briana Howell M D 146 [facility] [address] [place], [place] [address] [phone] 07/28/2020 Office Visit Pulmonary Disease [facility] [place] [address] Name Type Priority Associated Diagnoses Order S [...] Phone Address Typ e / Group Dates [facility] [place] [place] [employer] [place]. [id number] 2018-Pre [phone] [facility] sent [address] [place] [address] documented as of this encounter
--- OUTSIDE RECORDS SUMMARY | 2020-02-25 20:03 | XMS REPORT | Summary of Care ---
:1975 Author Organization [facility] - [facility] Address [address] [place] [address] Care Team Providers Name Role Phone LEMUEL Mosquera Primary Care Provider Reason for Visit (Routine) Status Reason Specialty Diagnoses / Referred By Referred To Procedures Contact Contact New Request Cardiology Diagnoses Palpitations Briana Howell MD Procedures ECHO ROUTINE W/DOPPLER COLOR Preferred Location: [facility] 146 [facility] [address] [place], [place] [address] Encounter Details Date Type Department Care Team Description 12/15/2019 Laboratory Only [facility] Cardiology- Killian Howell MD 146 [facility] [address] [place], [place] [phone] Palpitations [place] Stephie Márquez MD [facility] [address] [facility] [address] [facility] 106 [place] [address] [place] [address], Pc, Adc Echo Room 1 - [address] [place] [address] Allergies Active Allergy Reactions Severity Noted Date Comments Selvin Hearn High 11/20/2019 documented as of this encounter (statuses as of 12/16/2019) Medications Medication Sig Dispensed Refills Start Date End Date Status metoprolol succinate XL Take 1 tablet by 30 tablet 3 0 Active 25 mg 24 hr mouth daily. tabletIndications: Palpitations Hospital, Clinic, or Other Ordered Dose Route Frequency Start Date End Date Status Facility Administered Medication sulfur hexafluoride 5 mL IV ONCE 12/15/2019 0 Ended microsphr (LUMASON) injection 5 mL documented as of this encounter (statuses as of 12/16/2019) Active Problems Problem Noted Date S/P hysterectomy 11/20/2019 Tobacco use disorder 11/20/2019 BMI 21.0-21.9, adult 11/20/2019 Cervical polyp 11/20/2019 Primary hypothyroidism 06/30/2018 documented as of this encounter (statuses as of 12/16/2019) Resolved Problems Problem Noted Date Resolved Date Pre-existing essential hypertension during , 201911/20/2019 antepartum documented as of this encounter (statuses as of 12/16/2019) Immunizations Name Administration Dates Next Due Influenza [...] Sign Reading Time Taken Comments Blood Pressure 155/77 12/15/2019 3:29 PM CDT Pulse 63 12/15/2019 3:29 PM CDT Temperature - - Respiratory Rate - - Oxygen Saturation - - Inhaled Oxygen Concentration - - Weight 54 kg (119 lb) 12/15/2019 3:29 PM CDT Height 160 cm (5' 3") 12/15/2019 3:29 PM CDT Body Mass Index 21.08 12/15/2019 3:29 PM CDT documented in this encounter Plan of Treatment Date Type Specialty Care Team Description 03/16/2020 Office Visit Cardiology Briana Howell M D [address] [place] [address] 07/28/2020 Office Visit Pulmonary Disease Jocelin Gunter DO [address] [place] [phone] Health Maintenance Due Date Last Done Comments Breast Cancer Screening 08/11/2019 08/11/2018 (MAMMOGRAM) DTaP,Tdap,and Td Vaccines (1 - 11/18/2020 P ostponed from 1985 Tdap) (Alternative Christos delines) PAP SMEAR 11/20/2022 11/20/2019 INFLUENZA VACCINE Completed 11/20/2019 PNEUMOCOCCAL 0-64 YEARS COMBINED Discontinued SERIES documented as of this encounter Procedures Procedure Name Priority Date/Time Associated Diagnosis Comme nts ECHO ROUTINE W/DOPPLER Routine 12/15/2019 3:23 PM CDT Palpita tions COLOR documented in this encounter Results Not on filedocumented in this encounter Visit Diagnoses Diagnosis Palpitations documented in this encounter Administered Medications Medication Order MAR Action Action Date Dose Rate Site sulfur hexafluoride microsphr Given 12/15/2019 4:07 PM CDT 5 mL (LUMASON) injection 5 mL 5 mL, Intravenous, ONCE, 1 dose, 12/15/19 at 1730, Routine documented in this encounter Insurance Payer Benefit Plan Subscriber ID Effective Phone Address Typ e / Group Dates [place] [facility] [place]. [id number] 2018-Pre [phone] [facility] sent [address] [place] [address] documented as of this encounter
--- OUTSIDE RECORDS SUMMARY | 2020-02-25 20:03 | XMS REPORT | Summary of Care ---
:1975 Author Organization [facility] Address [address] [place] [address] Care Team Providers Name Role Phone LEMUEL Mosquera Primary Care Provider Reason for Visit Reason Comments TEST RESULTS Echo Encounter Details Date Type Department Care Team Description 12/29/2019 Telephone [facility] Cardiology- Killian Howell MD TEST RESULTS (Echo) [address] [place] [address] [place] [address] [phone] Allergies Active Allergy Reactions Severity Noted Date Comments Codeine Hives High 11/20/2019 documented as of this encounter (statuses as of 12/29/2019) Medications Medication Sig Dispensed Refills Start Date End Date Status metoprolol succinate XL Take 1 tablet by 30 tablet 3 0 Active 25 mg 24 hr mouth daily. tabletIndications: Palpitations documented as of this encounter (statuses as of 12/29/2019) Active Problems Problem Noted Date S/P hysterectomy 11/20/2019 Tobacco use disorder 11/20/2019 BMI 21.0-21.9, adult 11/20/2019 Cervical polyp 11/20/2019 Primary hypothyroidism 06/30/2018 documented as of this encounter (statuses as of 12/29/2019) Resolved Problems Problem Noted Date Resolved Date Pre-existing essential hypertension during , 201911/20/2019 antepartum documented as of this encounter (statuses as of 12/29/2019) Immunizations Name Administration Dates Next Due Influenza [...] of this encounter Last Filed Vital Signs Not on filedocumented in this encounter Plan of Treatment Date Type Specialty Care Team Description 01/06/2020 Office Visit [facility] Goldie Jalloh, CYBER SECURITY SYSTEMS ENGINEER [address] [place], [place] [address] [phone] 03/16/2020 Office Visit Cardiology Briana Howell M D 146 [facility] [address] [place], [place] [address] [phone] 07/28/2020 Office Visit Pulmonary Disease Jocelin Gunter, DO [facility] [place] [phone] Health Maintenance Due Date Last Done Comments Breast Cancer Screening 08/11/2019 08/11/2018 (MAMMOGRAM) DTaP,Tdap,and Td Vaccines (1 - 11/18/2020 P ostponed from 1985 Tdap) (Alternative Christos delines) PAP SMEAR 11/20/2022 11/20/2019 INFLUENZA VACCINE Completed 11/20/2019 PNEUMOCOCCAL 0-64 YEARS COMBINED Discontinued SERIES documented as of this encounter Results Not on filedocumented in this encounter Insurance Payer Benefit Plan / Subscriber ID Effective Phone Address T ype Group Dates ILYA CARABALLO [id number] 2018-Pre E [facility] PRIMARY CARE PRIMARY CARE sent [address] [place] [address] [place] [place] [place] [id number] 2018-Pr HO [facility] C [facility] C esent [address] CHILDRENS xxxxxxxxx 2019-Pres Med icaid [facility] ent HEALTH PLAN - MANAGED MEDICAID documented as of this encounter
--- OUTSIDE RECORDS SUMMARY | 2020-02-25 20:04 | XMS REPORT | Summary of Care ---
:1975 [address] [facility] - Health Address [address] [place] [address] Care Team Providers Name Role Phone LEMUEL Mosquera Primary Care Provider Encounter Details Date Type Department Care Team Description 12/15/[address] [facility] Doctor Unassigned, No [address] [facility] [place] [address] [address] [id number] Allergies Active Allergy Reactions Severity Noted Date Comments Codeine Hives High 11/20/2019 documented as of this encounter (statuses as of 12/30/2019) Medications Medication Sig Dispensed Refills Start Date End Date Status metoprolol succinate XL Take 1 tablet by 30 tablet 3 0 Active 25 mg 24 hr mouth daily. tabletIndications: Palpitations documented as of this encounter (statuses as of 12/30/2019) Active Problems Problem Noted Date S/P hysterectomy 11/20/2019 Tobacco use disorder 11/20/2019 BMI 21.0-21.9, adult 11/20/2019 Cervical polyp 11/20/2019 Primary hypothyroidism 06/30/2018 documented as of this encounter (statuses as of 12/30/2019) Resolved Problems Problem Noted Date Resolved Date Pre-existing essential hypertension during , 201911/20/2019 antepartum documented as of this encounter (statuses as of 12/30/2019) Immunizations Name Administration Dates Next Due Influenza [...] 01/06/2020 Office Visit OB Satellites Goldie Jalloh, COMPATIBILITY TEST ENGINEER [address] [facility] [place], [place] [address] [phone] 03/16/2020 Office Visit Cardiology Briana Howell M D [address] [facility] [address] [place], [place] [address] [phone] 07/28/2020 Office Visit Pulmonary Disease Jocelin Gunter DO [address] [place] [id number] Health Maintenance Due Date Last Done Comments Breast Cancer Screening 08/11/2019 08/11/2018 (MAMMOGRAM) DTaP,Tdap,and Td Vaccines (1 - 11/18/2020 P ostponed from 1985 Tdap) (Alternative Christos delines) PAP SMEAR 11/20/2022 11/20/2019 INFLUENZA VACCINE Completed 11/20/2019 PNEUMOCOCCAL 0-64 YEARS COMBINED Discontinued SERIES documented as of this encounter Procedures Procedure Name Priority Date/Time Associated Diagnosis Comme nts AUTHORIZATION TO RELEASE Routine 12/15/2019 12:01 AM PHI TO [facility] CDT documented in this encounter Results Not on filedocumented in this encounter Insurance Payer Benefit Plan / Subscriber ID Effective Phone Address T ype Group Dates ILYA CARABALLO [id number] 2018-Pre E [facility] PRIMARY CARE sent [address] [place] [address] [place]YA [place]. I [place]. I [id number] 2018-Pr HO [facility] esent [address] [place] [address] [facility] xxxxxxxxx 2019-Pres [facility] icasd [employer] ent HEALTH PLAN - MANAGED MEDICAID documented as of this encounter
[2020-02-25] MEDS ORDERED: FENTANYL CITR 100 MCG/2 ML ONE ×2 (21:06→23:05)
[2020-02-25] MEDS ORDERED: NA CHLORIDE 0.9% 1,000 ML ONE (21:06)
[2020-02-25] MEDS ORDERED: ONDANSETRON 4 MG/2 ML VIAL ONE (21:06)
[2020-02-25 21:36] LABS: Urine Blood NEGATIVE (NEG); Urine Glucose NEGATIVE (NEG); Urine Protein NEGATIVE (NEG); Urine Specific Gravity 1.025 (1.005-1.030)
[2020-02-25 21:39] LABS: Absolute Lymphocytes (CBC) 1.9 K/uL (0.7-4.9); Hematocrit 38.9 % (36.0-45.0); Lymphocytes % 23.6 % (15.3-44.8); MPV 9.4 fL (7.6-11.3); RBC Red Blood Cell Count 4.35 M/uL (3.86-4.86)
[2020-02-25 21:41] LABS: Urine Bacteria <20 /HPF (<20); Urine Culture Reflex Order NOT NEEDED; Urine RBC <5 /HPF (NONE SEEN)
[2020-02-25 21:53] LABS: Albumin 3.7 g/dL (3.4-5.0); Bilirubin Direct 0.2 mg/dL (0-0.2); Bilirubin Total 0.9 mg/dL (0.2-1.0); Potassium 3.8 mmol/L (3.5-5.1); Protein, Total 7.3 g/dL (6.4-8.2)
--- NOTE | 2020-02-26 01:10 | ER ---
Nurse's Notes [facility] Name: Hillary Olivares Age: 44 yrs Sex: Female : 1975 Arrival Date: 02/25/2020 Time: 20:02 Bed 17 Private MD: Diagnosis: Abdominal and pelvic pain Presentation: 02/24 20:03 Acuity: ALBERTO 3 sg 20:03 Chief complaint: Patient states: Abdominal pain, all quadrants really, reports having sg nausea as well, denies Fever/chills at home to her knowledge, no other complaints reported in triage. Coronavirus screen: Proceed with normal triage. Ebola Screen: Patient negative for fever greater than or equal to 101.5 degrees Fahrenheit, and additional compatible Ebola Virus Disease symptoms Patient denies exposure to infectious person. Patient denies travel to an Ebola-affected area in the 21 days before illness onset. No symptoms or risks identified at this time. Risk Assessment: Do you want to hurt yourself or someone else? Patient reports no desire to harm self or others. 20:03 Method Of Arrival: Ambulatory sg 21:46 Initial Sepsis Screen: Does the patient meet any 2 criteria? No. Patient's initial sepsis screen is negative. Does the patient have a suspected source of infection? No. Patient's initial sepsis screen is negative. Onset of symptoms is unknown. PUBLICITY WRITER: 23:00 LMP N/A - Unknown wh Historical: - Allergies: 20:19 No Known Allergies; sg - Home Meds: 20:19 Zofran Oral [Active]; sg - PMHx: 20:19 Hypothyroidism; sg - PSHx: 20:19 Lung SX; Hysterectomy; sg - Immunization history:: Adult Immunizations up to date. - Social history:: Smoking status: Patient denies any tobacco usage or history of. Screenin:46 Abuse screen: Denies threats or abuse. Nutritional screening: No deficits noted. Tuberculosis screening: No symptoms or risk factors identified. Fall Risk None identified. Assessment: 20:30 General: Appears uncomfortable, Behavior is calm, cooperative. Pain: Complains of pain ah in suprapubic area and right lower quadrant Pain radiates to lumbar area, left low back and right low back. Neuro: Level of Consciousness is awake, alert, Oriented to person, place, time, situation. Cardiovascular: Heart tones S1 S2 Capillary refill < 3 seconds Patient's skin is warm and dry. Respiratory: Airway is patent Respiratory effort is even, unlabored, Respiratory pattern is regular, symmetrical. GI: Abdomen is non-distended, Stools are reported to be loose, Last BM was February 24, 2020. Bowel sounds present X 4 quads. Abdomen is tender to palpation in right lower quadrant Reports diarrhea, nausea, Patient currently denies vomiting. : Urine is clear, Reports dysuria. EENT: No signs and/or symptoms were reported regarding the EENT system. Derm: No signs and/or symptoms reported regarding the dermatologic system. Musculoskeletal: No signs and/or symptoms reported regarding the musculoskeletal system. 22:05 Reassessment: Patient appears in no apparent distress at this time. No changes from previously documented assessment. Patient is alert, oriented x 3, equal unlabored respirations, skin warm/dry/pink. 23:34 Reassessment: Patient appears in no apparent distress at this time. No changes from previously documented assessment. Patient and/or family updated on plan of care and expected duration. Pain level reassessed. Patient is alert, oriented x 3, equal unlabored respirations, skin warm/dry/pink. Ff up with CTscan for pending imaging order, Tech states will be getting Pt in a while. 02/25 01:10 Reassessment: Patient appears in no apparent distress at this time. No changes from previously documented assessment. Patient and/or family updated on plan of care and expected duration. Pain level reassessed. Patient is alert, oriented x 3, equal unlabored respirations, skin warm/dry/pink. Provider at bedside explaining POC Patient states feeling better. Patient states symptoms have improved. Vital Signs: 02/24 20:50 BP 122 / 68; Pulse 58; Resp 16; Temp 98.5; Pulse Ox 99% ; 22:00 BP 106 / 69; Pulse 53; Resp 18; Pulse Ox 99% on R/A; 23:30 BP 107 / 56; Pulse 60; Resp 18; Pulse Ox 99% ; 02/25 01:00 BP 104 / 54; Pulse 51; Resp 18; Pulse Ox 100% on R/A; ED Course: 02/24 20:02 Patient arrived in ED. cl3 20:03 Triage completed. sg 20:19 Sathish Gardner PA is PHCP. jr8 20:19 Jerzy Cisse MD is Attending Physician. jr8 20:19 Arm band placed on. 20:20 Phyllis Brandon, RN is Primary Nurse. 21:30 Inserted saline lock: 20 gauge in left antecubital area, using aseptic technique. Blood collected. 21:47 Patient has correct armband on for positive identification. Bed in low position. Call light in reach. Side rails up X2. Adult w/ patient. Pulse ox on. NIBP on. 22:18 Primary Nurse role handed off by Phyllis Brandon, RN 22:18 Jose Morin, ALLI is Primary Nurse. 02/25 00:19 CT Abd/Pelvis - IV Contrast Only In Process Unspecified. EDID 01:20 Mickey Gonzalez MD is Referral Physician. 8 01:20 Caron Jiang MD is Referral Physician. [facility] 01:34 No provider procedures requiring assistance completed. 01:35 IV discontinued, intact, bleeding controlled, No redness/swelling at site. Administered Medications: 02/24 21:30 Drug: NS 0.9% 1000 ml Route: IV; Rate: 1000 ml; Site: left antecubital; 23:03 Follow up: Response: No adverse reaction; IV Status: Completed infusion :30 Drug: Zofran (Ondansetron) 4 mg Route: IVP; Site: left antecubital; 23:03 Follow up: Response: No adverse reaction; Nausea is decreased 21:30 Drug: fentaNYL (PF) 50 mcg Route: IVP; Site: left antecubital; 23:03 Follow up: Response: No adverse reaction; Pain is decreased; RASS: Alert and Calm (0) 23:03 Drug: fentaNYL (PF) 50 mcg {Note: Rass 0.} Route: IVP; Site: left antecubital; 23:32 Follow up: Response: No adverse reaction; Pain is decreased; RASS: Alert and Calm (0) 02/25 01:34 Follow up: Response: No adverse reaction; Pain is decreased; RASS: Alert and Calm (0) Outcome: 01:09 Discharge ordered by . jr8 01:35 Discharged to home via wheelchair. 01:35 Condition: stable 01:35 Discharge instructions given to patient, Instructed on discharge instructions, follow up and referral plans. no drinking with medication, no driving heavy equipment, medication usage, POC Demonstrated understanding of instructions, follow-up care, medications, POC Prescriptions given X 2. 01:37 Patient left the ED. Signatures: Dispatcher [employer] EDMS Jose Morin, RN RN Sathish Gardner PA PA jr8 Nahed Sal Kain Guzmán cl3 Phyllis Brandon RN RN Corrections: (The following items were deleted from the chart) 01:35 / 21:30 IV discontinued, intact, bleeding controlled, No redness/swelling at site. [facility]
--- NOTE | 2020-02-26 01:10 | EDPHYS ---
Physician Documentation [facility] Name: Hillary Olivares Age: 44 yrs Sex: Female : 1975 Arrival Date: 02/25/2020 Time: 20:02 Bed 17 Private MD: ED Physician Jerzy Cisse HPI: 02/24 22:46 This 44 yrs old Female presents to ER via Ambulatory with complaints of jr8 Abdominal Pain. 22:46 The patient presents with abdominal pain right lower quadrant. Onset: The jr8 symptoms/episode began/occurred acutely, today. The symptoms do not radiate. Associated signs and symptoms: Pertinent positives: dysuria, nausea. The symptoms are described as stabbing. Modifying factors: The symptoms are alleviated by nothing, the symptoms are aggravated by nothing. Severity of pain: At its worst the pain was moderate in the emergency department the pain is unchanged. The patient has not experienced similar symptoms in the past. The patient has not recently seen a physician. ORIENTOR: 23:00 LMP N/A - Unknown wh Historical: - Allergies: 20:19 No Known Allergies; sg - Home Meds: 20:19 Zofran Oral [Active]; sg - PMHx: 20:19 Hypothyroidism; sg - PSHx: 20:19 Lung SX; Hysterectomy; sg - Immunization history:: Adult Immunizations up to date. - Social history:: Smoking status: Patient denies any tobacco usage or history of. ROS: 22:46 Eyes: Negative for injury, pain, redness, and discharge, ENT: Negative for injury, jr8 pain, and discharge, Neck: Negative for injury, pain, and swelling, Cardiovascular: Negative for chest pain, palpitations, and edema, Respiratory: Negative for shortness of breath, cough, wheezing, and pleuritic chest pain, Back: Negative for injury and pain, MS/Extremity: Negative for injury and deformity, Skin: Negative for injury, rash, and discoloration, Neuro: Negative for headache, weakness, numbness, tingling, and seizure. 22:46 Abdomen/GI: Positive for abdominal pain, nausea, Negative for vomiting, diarrhea, constipation, abdominal cramps, abdominal distension. 22:46 : Positive for urinary symptoms. Exam: 22:46 Eyes: Pupils equal round and reactive to light, extra-ocular motions intact. Lids and jr8 lashes normal. Conjunctiva and sclera are non-icteric and not injected. Cornea within normal limits. Periorbital areas with no swelling, redness, or edema. ENT: Nares patent. No nasal discharge, no septal abnormalities noted. Tympanic membranes are normal and external auditory canals are clear. Oropharynx with no redness, swelling, or masses, exudates, or evidence of obstruction, uvula midline. Mucous membranes moist. Neck: Trachea midline, no thyromegaly or masses palpated, and no cervical lymphadenopathy. Supple, full range of motion without nuchal rigidity, or vertebral point tenderness. No Meningismus. Cardiovascular: Regular rate and rhythm with a normal S1 and S2. No gallops, murmurs, or rubs. Normal PMI, no JVD. No pulse deficits. Respiratory: Lungs have equal breath sounds bilaterally, clear to auscultation and percussion. No rales, rhonchi or wheezes noted. No increased work of breathing, no retractions or nasal flaring. Back: No spinal tenderness. No costovertebral tenderness. Full range of motion. Skin: Warm, dry with normal turgor. Normal color with no rashes, no lesions, and no evidence of cellulitis. MS/ Extremity: Pulses equal, no cyanosis. Neurovascular intact. Full, normal range of motion. Neuro: Awake and alert, GCS 15, oriented to person, place, time, and situation. Cranial nerves II-XII grossly intact. Motor strength 5/5 in all extremities. Sensory grossly intact. Cerebellar exam normal. Normal gait. 22:46 Abdomen/GI: Inspection: abdomen appears normal, Bowel sounds: active, all quadrants, Palpation: soft, in all quadrants, mild abdominal tenderness, in the right lower quadrant, mass, is not appreciated, rebound tenderness, is not appreciated, voluntary guarding, is not appreciated, involuntary guarding, is not appreciated, no appreciated organomegaly, Indicators: McBurney's point is not tender, Castillo's sign is negative, Rovsing's sign is negative, Liver: tenderness, is not appreciated. Vital Signs: 20:50 BP 122 / 68; Pulse 58; Resp 16; Temp 98.5; Pulse Ox 99% ; ah 22:00 BP 106 / 69; Pulse 53; Resp 18; Pulse Ox 99% on R/A; wh 23:30 BP 107 / 56; Pulse 60; Resp 18; Pulse Ox 99% ; 02/25 01:00 BP 104 / 54; Pulse 51; Resp 18; Pulse Ox 100% on R/A; MDM: 02/24 20:22 Patient medically screened. [facility] 02/25 01:11 Data reviewed: vital signs, nurses notes, lab test result(s), radiologic studies, CT jr8 scan. Data interpreted: Pulse oximetry: on room air is 99 %. Interpretation: normal. 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 Response to treatment: the patient's symptoms have mildly improved after treatment. Special discussion: Based on the patient's Hx, exam, and Dx evaluation, there is no indication for emergent surgery or inpatient Tx. It is understood by the patient/guardian that if the Sx's persist or worsen they need to return immediately for re-evaluation. 01:22 ED course: [facility] accessed and with score of 080/040/000 and range of 270. Last fill jr8 was in 2019. Acceptable to give pain medicine . 02/24 20:37 Order name: Basic Metabolic Panel; Complete Time: 22:24 [facility] 02/24 20:37 Order name: CBC with Diff; Complete Time: 22:24 [facility] 02/24 20:37 Order name: Hepatic Function; Complete Time: 22:24 [facility] 02/24 20:37 Order name: Lipase; Complete Time: 22:24 [facility] 02/24 20:37 Order name: Urine Microscopic Only; Complete Time: 22:24 [facility] 02/24 21:30 Order name: Urine Dipstick--Ancillary (enter results); Complete Time: 22:24 [facility] 02/24 20:37 Order name: IV Saline Lock; Complete Time: :41 [facility] 02/24 20:37 Order name: Labs collected and sent; Complete Time: :41 [facility] 02/24 20:37 Order name: Urine Dipstick-Ancillary (obtain specimen); Complete Time: : [facility] 02/24 22:24 Order name: CT Abd/Pelvis - IV Contrast Only jr8 Administered Medications: 02/24 21:30 Drug: NS 0.9% 1000 ml Route: IV; Rate: 1000 ml; Site: left antecubital; 23:03 Follow up: Response: No adverse reaction; IV Status: Completed infusion 21:30 Drug: Zofran (Ondansetron) 4 mg Route: IVP; Site: left antecubital; 23:03 Follow up: Response: No adverse reaction; Nausea is decreased 21:30 Drug: fentaNYL (PF) 50 mcg Route: IVP; Site: left antecubital; 23:03 Follow up: Response: No adverse reaction; Pain is decreased; RASS: Alert and Calm (0) 23:03 Drug: fentaNYL (PF) 50 mcg {Note: Rass 0.} Route: IVP; Site: left antecubital; 23:32 Follow up: Response: No adverse reaction; Pain is decreased; RASS: Alert and Calm (0) 02/25 01:34 Follow up: Response: No adverse reaction; Pain is decreased; RASS: Alert and Calm (0) Disposition: 12:31 Co-signature as Attending Physician, Jerzy Cisse MD I agree with the assessment and katie plan of care. Disposition: 02/26/20 01:09 Discharged to Home. Impression: Abdominal and pelvic pain. - Condition is Stable. - Discharge Instructions: Abdominal Pain, Adult. - Prescriptions for Tylenol- Codeine #3 300-30 mg Oral Tablet - take 2 tablets by ORAL route every 6 hours As needed; 20 tablet. Zofran 4 mg Oral Tablet - take 1 tablet by ORAL route every 12 hours As needed; 20 tablet. - Medication Reconciliation Form, Thank You Letter, Antibiotic Education, Prescription Opioid Use form. - Follow up: Mickey Gonzalez MD; When: 5 - 6 days; Reason: Recheck today's complaints, Continuance of care, Re-evaluation by your physician. Follow up: Caron Jiang MD; When: 5 - 6 days; Reason: Recheck today's complaints, Continuance of care, Re-evaluation by your physician. - Problem is new. - Symptoms have improved. Signatures: Dispatcher [employer] EDJose Hopper RN RN sg Anderson, Corey, MD MD cha Roszak, Josh, PA PA jr8 Nahed Sal Phyllis Brandon, RN RN Corrections: (The following items were deleted from the chart) : 01:02/26/2020 01:09 Discharged to Home. Impression: Abdominal and pelvic pain. jr8 Condition is Stable. Forms are Medication Reconciliation Form, Thank You Letter, Antibiotic Education, Prescription Opioid Use. Follow up: Private Physician; When: 2 - 3 days; Reason: Recheck today's complaints, Continuance of care, Re-evaluation by your physician. Problem is new. Symptoms have improved. jr8 01:37 01:20 02/26/2020 01:09 Discharged to Home. Impression: Abdominal and pelvic pain. Condition is Stable. Discharge Instructions: Abdominal Pain, Adult. Forms are Medication Reconciliation Form, Thank You Letter, Antibiotic Education, Prescription Opioid Use. Follow up: Mickey Gonzalez; When: 5 - 6 days; Reason: Recheck today's complaints, Continuance of care, Re-evaluation by your physician. Follow up: Caron Jiang; When: 5 - 6 days; Reason: Recheck today's complaints, Continuance of care, Re-evaluation by your physician. Problem is new. Symptoms have improved. jr8
[2020-02-26 01:56] VITALS: TEMP 98.5
[2020-02-26 02:03] VITALS: BP 104/54; O2SAT 100
--- NOTE | 2020-02-27 11:06 | RAD REPORT ---
EXAM DESCRIPTION: CT - Abdomen Pelvis W Contrast - 02/26/2020 5:32 am COMPARISON: CT abdomen pelvis May 24, 2019 CLINICAL HISTORY: Abdominal pain TECHNIQUE: Multiple helical axial images were obtained through the abdomen and pelvis using intravenous contrast . Coronal and sagittal reformatted images were obtained. All CT scans at this facility use dose modulation, iterative reconstruction, and/or weight-based dosi ng when appropriate to reduce radiation dose to as low as reasonably achievable. FINDINGS: Lung bases: Bronchiectasis in the lingula is noted. Liver: There is a 1.7 cm hypodense cyst on the inferior left hepatic lobe. There is a 1 cm hypodense structure in the right hepatic lobe posteriorly which appears unchanged. Gallbladder/biliary: A 1.3 cm stone in the gallbladder is present. Gallbladder appears normal in size . No obvious pericholecystic inflammation. Common bile duct measures 9 mm in width with distal taperi ng, unchanged. Pancreas: Unremarkable. No evidence of ductal enlargement. Spleen: Appears unremarkable. No splenomegaly. Adrenals: Unremarkable. Kidneys and ureters: No evidence of hydronephrosis. Normal enhancement. Bladder: Unremarkable. Pelvic organs: There are a few small nodular densities in the uterus suggestive of fibroids. Bowel: Colonic diverticula are present. No evidence of bowel obstruction. No bowel wall thickening. Appendix appears unremarkable. Vasculature: Aortic atherosclerosis is present. Peritoneum: No free air. There is trace nonspecific free fluid in the pelvis. Lymph nodes: Unremarkable. Soft tissues: Unremarkable. Bones: Degenerative disc space narrowing with vacuum disc phenomenon and osteophyte formation at L5-S 1 is noted. Posterior central disc protrusion at L4-L5 noted. IMPRESSION: 1. No evidence for an acute process within the abdomen or pelvis. 2. Cholelithiasis. Mild, nonspecific prominence of the common bile duct appears unchanged. 3. Colonic diverticulosis. Electronically signed by: Fransisco Jackson MD 02/26/2020 12:50 AM CDT Due to temporary technical issues with the PACS/Fluency reporting system, reports are being signed by the in house radiologist as a courtesy to ensure prompt reporting. The interpreting radiologist is f ully responsible for the content of the report.
== END 2020-02-26 01:37 | disposition home or self-care (01) ==
LOC: ER 19:59
DX: R10.2 Pelvic and perineal pain (principal); E03.9 Hypothyroidism, unspecified
CPT/HCPCS: 36415; 74177; 80048; 80076; 81003; 81015; 83690; 85025; 96361; 96374; 96375; 99284; J2405; J3010; J7030; Q9967

== ENCOUNTER 2023-06-25 14:16 | Emergency (ER) | payer OTHER, SELFPAY ==
--- OUTSIDE RECORDS SUMMARY | 2023-06-25 14:19 | XMS REPORT | Continuity of Care Document ---
:1975 Author Organization [facility] t Address [address] [place] [address] [address] [place] [address] Care Team Providers Name Role Phone Rafael Amin Primary Care Physician Doctor Unassigned, [place] Attending Clinician Unavailable Rafael Amin Attending Clinician RAFAEL BAR Attending Clinician Unavailable POOJA ALEGRIA Attending Clinician Unavailable Pooja Alegria MD Attending Clinician ERICK MARTINEZ Attending Clinician Unavailable ([facility]), [place]INA EMG/NCV TESTING Attending Clinician Unavailab EDUAR Menchaca Attending Clinician Unavailable EDUAR TRAN Attending Clinician Unavailable Eduar Tran MD Attending Clinician Lab, Andrew Stewart Attending Clinician Unavailable Erick Martinez MD Attending Clinician BRIANA SANABRIA Attending Clinician Unavailable 2, [facility] Lab Attending Clinician Unavailable Pob, Adc Lab Main Attending Clinician Unavailable Malena Mauro LMSW Attending Clinician Urszula Attending Clinician Unavailable Igor Valerio MD Attending Clinician IGOR VALERIO Attending Clinician Unavailable Joya Fairchild MD Attending Clinician [phone] JOYA FAIRCHILD Attending Clinician Unavailable Keenan Holland DO Attending Clinician KEENAN HOLLAND Attending Clinician Unavailable KEENAN HOLLAND Attending Clinician Unavailable Dante TRUONG, Briana Attending Clinician ILANA GUZMAN Attending Clinician Unavailable Pc, Adc Echo Room 1 - Attending Clinician Unavailable Willi TRUONG, Stephie Boswell Attending Clinician MARIA VICTORIA YANCEY Attending Clinician Unavailable Megan DISH MACHINE OPERATORIlana Corona Attending Clinician Visit, Andrew-chp Nurse Attending Clinician Unavailable Maria Victoria Woods Attending Clinician Care, Andrew Primary Attending Clinician Unavailable RAFAEL BAR Admitting Clinician Unavailable POOJA ALEGRIA Admitting Clinician Unavailable EDUAR TRAN Admitting Clinician Unavailable Edy_Dylan Admitting Clinician Unavailable Payers Payer Name Policy Type Policy Number Effective Date Expiration Date [employer] [id number] 2019 HEALTH 00:00:00 [facility] [id number] MEDICAID OF [place] [id number] 2019 00:00:00 Problems Condition Condition Condition Status Onset Resolution Last Treating Co mments Source Name Details Category Date Date Treatment Clinician Date Forgetfuln Forgetfuln Disease Active 2020-10 U nivers ess ess 2-03 ity of 00:00: [place] [address] Medical Branch Non Non Disease Active 2020-10 Univers compliance compliance 2-03 it y of with with 00:00: [facility] 00 Medical treatment treatment Bran ch Benign Benign Disease Active Univers lipomatous lipomatous 9-17 it y of neoplasm neoplasm 00:00: [place] of skin of skin 00 Medical and and Branch subcutaneo subcutaneo us tissue us tissue of head, of head, face and face and neck neck Need for Need for Disease Active Unive rs influenza influenza 9-17 ity of vacc[place] Medical [place] Need for Need for Disease Active Unive rs hepatitis hepatitis 6-15 ity of C C 00:00: [place] screening screening 00 Medi beth test test Branch Palpitatio Palpitatio Disease Active U nivers ns ns 3-04 ity of 00:00: [place] 00 Medical Branch 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 for for Branch malignant malignant neoplasm neoplasm of breast of breast Essential Essential Disease Active 2019-10 Uni vers hypertensi hypertensi 2-04 it y of on on 00:00: [place] 00 Medical Branch Vision Vision Disease Active 2019-10 Univers changes changes 2-04 ity of 00:00: [place] 00 Medical Branch Generalize Generalize Disease Active 2019- U nivers d anxiety d anxiety 2-04 ity of disorder disorder 00:00: [place] 00 Medical Branch Nicotine Nicotine Disease Active 2019- Unive rs dependence dependence 2-14 it y of with with 00:00: [place] current current 00 Medical use use Branch S/P S/P Disease Active 2019- Univers hysterecto hysterecto 2-14 it y of my my 00:00: [place] 00 Medical Branch BMI BMI Disease Active 2020- Univers 21.0-21.9, 21.0-21.9, 2-14 it y of adult adult 00:00: [place] 00 Medical Branch Cervical Cervical Disease Active 2019- Unive rs polyp polyp 2-14 ity of 00:00: [place] 00 Medical Branch Nicotine Nicotine Disease Active 2019- Unive rs dependence dependence 2-14 it y of with with 00:00: [place] current current 00 Medical use use Branch Primary Primary Disease Active Univers hypothyroi hypothyroi 9-24 it y of dism dism 00:00: [place] 00 Medical Branch Allergies, Adverse Reactions, Alerts Allergy Allergy Status Severity Reaction(s) Onset Inactive Treating Comm ents Source Name Type Date Date Clinician CODEINE DRUG Active High Hives 2020-0 Univers INGREDI 2-14 ity of 00:00: [place] 00 Medical Branch Codeine Drug Active Hives 2019-0 Univers Allergy 2-14 ity of 00:00: [place] [address] Medical Branch Social History Social Habit Start Date Stop Date Quantity Comments Source History [facility] o f Alcohol Frequency [facility] edical Branch History [facility] o f Alcohol Std Drinks [facility] History [facility] o f Alcohol Binge [place] Medic al Branch History of tobacco Cigarette Smoker University of use [facility] Exposure to 2022-02-10 2022-02-20 Not sure University of SARS-CoV-2 (event) 00:00:00 14:26:00 [facility] Alcohol intake 2022-02-08 2022-02-08 Ex-drinker University 00:00:00 00:00:00 (finding) [facility] Cigarettes smoked 2021-11-16 2021-11-16 Univers ity of current (pack per 00:00:00 00:00:00 ) - Reported Branch Cigarette 2021-11-16 2021-11-16 University of pack-years 00:00:00 00:00:00 [facility] Tobacco use and 2021-11-16 2021-11-16 Smokeless tobacco Un iversity of exposure 00:00:00 00:00:00 non-user [facility] Alcohol Comment 2019-11-20 2019-11-20 occasional Universit y of 00:00:00 00:00:00 [facility] Sex [birth year] Universit y of 00:00:00 00:00:00 [facility] Smoking Status Start Date Stop Date Source Ex-smoker 2021-11-16 00:00:00 2021-11-16 00:00:00 Universi ty of [facility] Medications Ordered Filled Start Stop Current Ordering Indication Dosage Frequency Signature Comments Components Source Medication Medication Date Date Medication? Clinician (SIG) Name Name thyroid 2020-10 Yes [id number] 45mg Take 1.5 Un joana (ARMOUR 2-03 tablets by ity of THYROID) 30 00:00: mouth [place] mg tablet 00 every Medical morning. Branch thyroid 2020-10 Yes [id number] 45mg Take 1.5 Un joana (ARMOUR 2-03 tablets by ity of THYROID) 30 00:00: mouth [place] mg tablet 00 every Medical morning. Branch thyroid 2020-10 Yes [id number] 45mg Take 1.5 Un joana (ARMOUR 2-03 tablets by ity of THYROID) 30 00:00: mouth [place] mg tablet 00 every Medical morning. Branch thyroid 2020-10 Yes [id number] 45mg Take 1.5 Un joana (ARMOUR 2-03 tablets by ity of THYROID) 30 00:00: mouth [place] mg tablet 00 every Medical morning. Branch PARoxetine Yes [id number] 10mg Take 1 Univers (PAXIL) 10 9-30 tablet by [place] of mg tablet [place] bed[place]. Medical [place] PARoxetine Yes [id number] 10mg Take 1 Univers (PAXIL) 10 9-30 tablet by [place] of mg tablet [place] bed[place]. Medical [place] PARoxetine Yes [id number] 10mg Take 1 Univers (PAXIL) 10 9-30 tablet by [place]y of mg tablet [place] bed[place]. Medical [place] PARoxetine Yes [id number] 10mg Take 1 Univers (PAXIL) 10 9-30 tablet by [place] of mg tablet [place] bed[place]. Medical [place] amLODIPine- Yes [id number] 1{capsu Take 1 Univers benazepriL 9-20 le} capsule by ity of 5-10 mg per 00:00: mouth [place] capsule 00 daily. Medical Branch hydrOXYzine Yes [id number] 50mg Take 1 Univers 50 mg 9-20 tablet by ity of tablet 00:00: mouth 3 [place] 00 (three) Medical times Branch daily as needed for Anxiety. metoprolol Yes [id number] 25mg Take 1 U nivers succinate 9-20 tablet by ity o f XL 25 mg 24 00:00: mouth [place] hr tablet 00 daily. Medical Branch amLODIPine- Yes [id number] 1{capsu Take 1 Univers benazepriL 9-20 le} capsule by ity of 5-10 mg per 00:00: mouth [place] capsule 00 daily. Medical Branch hydrOXYzine Yes [id number] 50mg Take 1 Univers 50 mg 9-20 tablet by ity of tablet 00:00: mouth 3 [place] 00 (three) Medical times Branch daily as needed for Anxiety. metoprolol Yes [id number] 25mg Take 1 U nivers succinate 9-20 tablet by ity o f XL 25 mg 24 00:00: mouth [place] hr tablet 00 daily. Medical Branch amLODIPine- Yes [id number] 1{capsu Take 1 Univers benazepriL 9-20 le} capsule by ity of 5-10 mg per 00:00: mouth [place] capsule 00 daily. Medical Branch hydrOXYzine Yes [id number] 50mg Take 1 Univers 50 mg 9-20 tablet by ity of tablet 00:00: mouth 3 [place] 00 (three) Medical times Branch daily as needed for Anxiety. metoprolol Yes [id number] 25mg Take 1 U nivers succinate 9-20 tablet by ity o f XL 25 mg 24 00:00: mouth [place] hr tablet 00 daily. Medical Branch amLODIPine- Yes [id number] 1{capsu Take 1 Univers benazepriL 9-20 le} capsule by ity of 5-10 mg per 00:00: mouth [place] capsule 00 daily. Medical Branch hydrOXYzine Yes [id number] 50mg Take 1 Univers 50 mg 9-20 tablet by ity of tablet 00:00: mouth 3 [place] 00 (three) Medical times Branch daily as needed for Anxiety. metoprolol Yes [id number] 25mg Take 1 U nivers succinate 9-20 tablet by ity o f XL 25 mg 24 00:00: mouth [place] hr tablet 00 daily. Medical Branch buPROPion Yes [id number] 100mg Take 1 Univers SR 9-17 tablet by ity of (WELLBUTRIN 00:00: mouth 2 [place] SR) 100 mg 00 (two) Medical SR tablet times Branch daily. buPROPion Yes [id number] 100mg Take 1 Univers SR 9-17 tablet by ity of (WELLBUTRIN 00:00: mouth 2 [place] SR) 100 mg 00 (two) Medical SR tablet times Branch daily. buPROPion Yes [id number] 100mg Take 1 Univers SR 9-17 tablet by ity of (WELLBUTRIN 00:00: mouth 2 [place] SR) 100 mg 00 (two) Medical SR tablet times Branch daily. buPROPion Yes [id number] 100mg Take 1 Univers SR 9-17 tablet by ity of (WELLBUTRIN 00:00: mouth 2 [place] SR) 100 mg 00 (two) Medical SR tablet times Branch daily. Immunizations Ordered Filled Immunization Date Status Comments [facility] e Immunization Name Name SARS-COV-2 COVID-19 2021-09-14 Completed Unive rsity of PFIZER VACCINE 00:00:00 [facility] SARS-COV-2 COVID-19 2021-09-14 Completed Unive rsity of PFIZER VACCINE 00:00:00 [facility] Branch SARS-COV-2 COVID-19 2021-09-14 Completed Unive rsity of PFIZER VACCINE 00:00:00 [facility] Branch SARS-COV-2 COVID-19 2021-09-14 Completed Unive rsity of PFIZER VACCINE 00:00:00 [place] [facility] Branch SARS-COV-2 COVID-19 2021-03-18 Completed Unive rsity of MODERNA VACCINE 00:00:00 [facility] [place] [facility] ical Branch SARS-COV-2 COVID-19 2021-03-18 Completed Unive rsity of MODERNA 12+ YRS 00:00:00 [facility] [place] [facility] ical VACCINE Branch SARS-COV-2 COVID-19 2021-03-18 Completed Unive rsity of MODERNA 12+ YRS 00:00:00 [facility] [place] [facility] ical VACCINE Branch SARS-COV-2 COVID-19 2021-03-18 Completed Unive rsity of MODERNA 12+ YRS 00:00:00 [facility] [place] [facility] ical VACCINE Branch SARS-COV-2 COVID-19 2021-02-16 Completed Unive rsity of MODERNA VACCINE 00:00:00 [facility] [place] [facility] ical Branch SARS-COV-2 COVID-19 2021-02-16 Completed Unive rsity of MODERNA 12+ YRS 00:00:00 [facility] [place] [facility] ical VACCINE Branch SARS-COV-2 COVID-19 2021-02-16 Completed Unive rsity of MODERNA 12+ YRS 00:00:00 [facility] VACC[facility] Branch SARS-COV-2 COVID-19 2021-02-16 Completed Unive rsity of MODERNA 12+ YRS 00:00:00 [facility] [place] [facility] ical VACCINE Branch Influenza Virus 2019-11-20 Completed Universit y of Vaccine Quad .5 mL 00:00:00 [place] Medical IM 6+ MO Branch Influenza Virus 2019-11-20 Completed Universit y of Vaccine Quad .5 mL 00:00:00 [place] Medical IM 6+ MO Branch Influenza Virus 2019-11-20 Completed Universit y of Vaccine Quad .5 mL 00:00:00 [place] Medical IM 6+ MO Branch Influenza Virus 2019-11-20 Completed Universit y of Vaccine Quad .5 mL 00:00:00 [place] Medical IM 6+ MO Branch Procedures Procedure Date / Time Performed Performing Clinician Sourc e OP CORRESPONDENCE 2022-08-03 05:01:00 [facility] Start End Encounter Admission Attending Care Care Encounter Source Date/Time Date/Time Type Type Clinicians Facility Department ID 2022-08-03 2022-08-03 Orders Doctor CLARISSA [id number] Univers 00:00:00 00:00:00 Only Unassigned, NABIL 350.1.13.10 ity of [place] [facility] 4.2.7.2.686 Bill as [id number] [address] 2022-06-14 2022-06-14 Telephone [facility] [facility] [id number] Univers 00:00:00 00:00:00 Rafael HEALTH [id number] it y of [place] 4.2.7.2.686 Bill as DELLA?BLEA [id number] [address] MEDICAL OFFICE [facility] 2022-06-07 2022-06-07 Telephone [facility] [id number] Univers 00:00:00 00:00:00 Rafael HEALTH [id number] it y of [place] 4.2.7.2.686 Bill as DELLA?BLEA [id number] [address] OFFICE [facility] 2022-02-27 2022-02-27 [facility] [id number] Univers 00:00:00 00:00:00 RAFAEL ity [facility] [place] 2022-02-20 2022-02-20 Outpatient R YOSVANY [facility] [id number] Univers 14:37:31 23:59:00 RAFAEL ity [facility] [place] 2022-02-20 2022-02-20 Outpatient R YOSVANY [facility] [id number] Univers 14:37:31 23:59:00 RAFAEL ity [facility] [place] 2022-02-20 2022-02-20 [facility] [facility] [id number] Univers 14:20:00 23:59:00 Encounter Rafael ANGLESOFI 350.1.13.10 ity [place] [id number] [facility] [address] [place] 2022-02-14 2022-02-14 Telephone [facility] [id number] Univers 00:00:00 00:00:00 Rafael HEALTH [id number] it y of [facility] [id number] Bill as DELLA?BLEA [id number] [address] MEDICAL OFFICE [facility] 2022-02-11 2022-02-11 Emergency [facility] [id number] Univers 16:49:00 18:59:00 POOJA ithugo [facility] [place] 2022-02-11 2022-02-11 Emergency [facility] [id number] Univers 16:49:00 18:59:00 Pooja [facility] [id number] i [place] [id number] [facility] [address] [place] 2022-02-08 2022-02-08 Office [facility] 1.2.840.114 [id number] Univers 11:30:00 13:05:54 Visit Rafael HEALTH [id number] it y of [place] 4.2.7.2.686 Bill as DELLA?BLEA [id number] [address] OFFICE [facility] 2022-02-08 2022-02-08 Outpatient R YOSVANY [facility] [id number] Univers 11:30:00 13:05:54 RAFAEL ity [facility] [place] 2022-02-08 2022-02-08 Outpatient R YOSVANY [facility] [id number] Univers 11:30:00 13:05:54 RAFAEL ity [facility] [place] 2022-02-08 2022-02-08 Outpatient R YOSVANY [facility] [id number] Univers 11:30:00 11:30:00 RAFAEL ity [facility] [place] 2022-02-08 2022-02-08 Telephone [facility] [id number] Univers 00:00:00 00:00:00 Rafael HEALTH 350.1.13.10 it y of [facility] 4.2.7.2.686 Bill as DELLA?BLEA [id number] [address] OFFICE [facility] 2022-02-08 2022-02-08 Luis Alfredo Bar [facility] [id number] Univers 00:00:00 00:00:00 Rafael HEALTH 350.1.13.10 it y of [facility] 4.2.7.2.686 Bill as DELLA?BLEA [id number] [address] 2022-02-06 2022-02-06 Outpatient Joby BAR [facility] [id number] Univers 14:00:00 14:00:00 RAFAELJUAN JOSÉ alatorre [facility] [place] 2022-01-29 2022-01-29 Orders Doctor CLARISSA [id number] Univers 00:00:00 00:00:00 Only Unassigned, NABIL 350.1.13.10 ity of [place] [facility] 4.2.7.2.686 Bill as [id number] [address] 2021-12-11 2021-12-11 Orders Doctor CLARISSA [id number] Univers 00:00:00 00:00:00 Only Unassigned, NABIL 350.1.13.10 ity of [place] [facility] 4.2.7.2.686 Bill as [id number] [address] 2021-12-07 2021-12-07 Outpatient Joby MARTINEZ [facility] [id number] Univers 11:20:00 11:20:00 ERICK alatorre [facility] [place] 2021-12-07 2021-12-07 Outpatient Joby MARTINEZ [facility] [id number] Univers 11:20:00 11:20:00 ERICK alatorre [facility] [place] 2021-12-07 2021-12-07 Outpatient Joby MARTINEZ [facility] [id number] Univers 11:20:00 11:20:00 ERICK alatorre [facility] [place] 2021-11-27 2021-11-27 Outpatient [facility] [id number] Univers 11:30:00 23:59:00 RAFAEL ithugo [facility] [place] 2021-11-27 2021-11-27 Outpatient R (TECH), [facility] [id number] Univers 11:30:00 11:30:00 ANG-DB ity [facility] [place] 2021-11-16 2021-11-16 Office Yosvany [facility] [id number] Univers 16:00:00 16:34:17 Visit Rafael HEALTH 350.1.13.10 it y of [facility] [id number] Bill as DELLA?BLEA [id number] [address] MEDICAL OFFICE [facility] 2021-11-16 2021-11-16 Outpatient R YOSVANY [facility] [id number] Univers 16:00:00 16:34:17 RAFAEL alatorre [facility] [place] 2021-11-16 2021-11-16 Outpatient R YOSVANY [facility] [id number] Univers 16:00:00 16:34:17 RAFAEL ithugo [facility] [place] 2021-11-16 2021-11-16 Out[facility] [id number] Univers 16:00:00 16:00:00 RAFAEL hugo [facility] [place] 2021-11-15 2021-11-15 Outpatient R MERVIN [facility] [id number] Univers 16:00:00 16:00:00 ERICK hugo [facility] [place] 2021-11-09 2021-11-09 Orders Doctor ROMO [id number] Univers 00:00:00 00:00:00 Only Unassigned, NABIL 350.1.13.10 ity of [place] [facility] 4.2.7.2.686 Bill as [id number] [address] 2021-10-12 2021-10-12 Office [facility] [id number] Univers 10:30:00 11:18:50 Visit Rafael HEALTH 350.1.13.10 it y of [place] 4.2.7.2.686 Bill as DELLA?BLEA [id number] [address] MEDICAL OFFICE BUILDING 2021-10-12 2021-10-12 Outpatient R YOSVANY, [facility] [id number] Univers 10:30:00 11:18:50 RAFAEL alatorre [facility] [place] 2021-10-12 2021-10-12 Outpatient R YOSVANY [facility] [id number] Univers 10:30:00 11:18:50 RAFAEL alatorre [facility] [place] 2021-10-12 2021-10-12 Outpatient R YOSVANY [facility] [id number] Univers 10:30:00 11:18:50 RAFAEL alatorre [facility] [place] 2021-10-12 2021-10-12 Outpatient R YOSVANY [facility] [id number] Univers 10:30:00 10:30:00 RAFAEL alatorre [facility] [place] 2021-10-05 2021-10-05 Outpatient R YOSVANY [facility] [id number] Univers 14:30:00 14:30:00 RAFAELJUAN JOSÉ alatorre [facility] [place] 2021-10-05 2021-10-05 Outpatient R YOSVANY [facility] [id number] Univers 14:30:00 14:30:00 [facility] 2021-10-02 2021-10-02 Office [facility] 1.2.840.114 [id number] Univers 14:30:00 15:00:00 Visit [facility] 350.1.13.10 it y of [place] 4.2.7.2.686 Bill as DELLA?BLEA [id number] [address] MEDICAL OFFICE BUILDING 2021-10-02 2021-10-02 Outpatient R MADELEINECLARITA [facility] [id number] Univers 14:30:00 14:30:00 RAFAEL alatorre [facility] [place] 2021-10-02 2021-10-02 Outpatient R YOSVANY [facility] [id number] Univers 14:30:00 14:30:00 RAFAEL alatorre [facility] [place] 2021-09-19 2021-09-19 Outpatient R EDUAR TRAN [facility] [id number] Univers 15:40:00 15:40:00 EDUAR TRAN [facility] [place] 2021-09-19 2021-09-19 Office Chelsea [facility] [id number] Univers 15:40:00 15:40:00 Visit Eduar Snowden [facility] [id number] ity of [place] 4.2.7.2.686 Bill as DELLA?BLEA [id number] [facility] [place] [facility] [facility] OFFICE [facility] 2021-09-19 2021-09-19 Outpatient EDUAR PEREZ [facility] [id number] Univers 14:45:00 14:50:20 EDUAR TRAN hugo [facility] [place] 2021-09-19 2021-09-19 Knockdown Worker Lab, Ang - [facility] 1.2.840.1 [id number] Univers 14:26:45 14:41:45 Visit Eduar Tran [facility] 350.1.13. 10 ity of [place] 4.2.7.2.686 Bill as DELLA?BLEA [id number] [facility] [place] [facility] OFFICE [facility] 2021-09-19 2021-09-19 Outpatient EDUAR PEREZ [facility] [id number] Univers 15:40:00 14:27:03 EDUAR TRAN hugo [facility] [place] 2021-09-15 2021-09-15 Outpatient Joby BAR [facility] [id number] Univers 13:00:00 23:59:00 RAFAEL alatorre [facility] [place] 2021-09-15 2021-09-15 [facility] [facility] 1.2.840.114 [id number] Univers 12:58:38 23:59:00 Encounter [facility] 350.1.13.10 ity of [place] 4.2.7.2.686 Bill as DELLA?BLEA [id number] [facility] [place] [facility] OFFICE [facility] 2021-09-15 2021-09-15 [facility] [id number] Univers 13:00:00 13:00:00 RAFAEL hugo [facility] [place] 2021-09-15 2021-09-15 Outpatient Joby [facility] [id number] Univers 13:00:00 13:00:00 RAFAEL alatorre [facility] [place] 2021-09-15 2021-09-15 Outpatient R YOSVANY [facility] [id number] Univers 13:00:00 13:00:00 RAFAEL alatorre [facility] [place] 2021-09-14 2021-09-14 Knockdown Worker Lab, Ang [facility] 1.2.840.1 [id number] Univers 16:35:22 16:50:22 Visit Rafael Bar 350.1.13.10 ity of [place] 4.2.7.2.686 Bill as DELLA?BLEA [id number] [address] MEDICAL OFFICE [facility] 2021-09-14 2021-09-14 Outpatient R YOSVANY [facility] [id number] Univers 16:45:00 16:48:58 RAFAEL alatorre [facility] [place] 2021-09-14 2021-09-14 Knockdown Worker Lab, [facility] 1.2.840.1 [id number] Univers 16:35:22 16:48:58 Visit Rafael Bar 350.1.13.10 ity of [place] 4.2.7.2.686 Bill as DELLA?BLEA [id number] [address] OFFICE [facility] 2021-09-14 2021-09-14 Office Yosvany [facility] 1.2.840.114 [id number] Univers 14:46:46 16:04:54 Visit Rafael ROA 350.1.13.10 it y of [place] 4.2.7.2.686 Bill as DELLA?BLEA [id number] [facility] [address] [place] MEDICAL OFFICE [facility] 2021-09-14 2021-09-14 Outpatient R YOSVANY [facility] [id number] Univers 14:30:00 16:04:54 RAFAEL alatorre [facility] [place] 2021-09-14 2021-09-14 [facility] [id number] Univers 14:30:00 16:04:54 RAFAEL alatorre [facility] 2021-09-14 2021-09-14 Outpatient R [facility] [id number] Univers 14:30:00 16:04:54 RAFAEL alatorre [facility] 2021-09-08 2021-09-08 Outpatient [facility] [id number] Univers 16:20:00 17:03:49 ERICK alatorre [facility] 2021-09-08 2021-09-08 [facility] 1.2.840.114 [id number] Univers 15:55:23 17:03:49 Visit Erick QUIJANO 350.1.13.10 i [place] of [place] [phone] Mt dical NAL 044 [facility] 2021-07-26 2021-07-26 Outpatient Joby SANABRIA [facility] [id number] Univers 13:40:00 13:40:00 BRIANA maki [facility] 2021-07-26 2021-07-26 Outpatient Joby SANABRIA [facility] [id number] Univers 13:40:00 13:40:00 BRIANA maki [facility] 2021-07-07 2021-07-07 Knockdown Worker 2, Adc Lab [facility] 1.2.840.114 [id number] Univers 15:11:03 15:26:03 Visit Erick Martinez 350.1.13.10 it[place] of [place] [phone] Mt dical nal 353 [facility] 2021-07-07 2021-07-07 Outpatient R GISELAMARILOUPABLOBRENDA [facility] [id number] Univers 15:15:00 15:15:00 ERICK celi [facility] 2021-07-07 2021-07-07 Outpatient R GISELAMARILOUPABLOBRENDA [facility] [id number] Univers 15:00:00 15:00:00 ERICK celi [facility] 2021-06-27 2021-06-27 Telephone [facility] 1.2.840.114 [id number] Univers 00:00:00 00:00:00 Erick Quijano 350.1.13.10 i [place] of [place] [phone] Mt dical [facility] 044 [facility] 2021-06-26 2021-06-26 [facility] 1.2.840.114 [id number] Univers 00:00:00 00:00:00 Erick Quijano 350.1.13.10 i [place] of [place] [phone] [facility] 044 [facility] 2021-06-23 2021-06-23 Office [facility] 1.2.840.114 [id number] Univers 15:41:02 16:21:51 Visit Erick Quijano 350.1.13.10 i [place] of [place] [phone] [facility] 044 [facility] 2021-06-23 2021-06-23 Outpatient [facility] [id number] Univers 15:40:00 16:21:51 ERICK celi [facility] 2021-06-23 2021-06-23 Outpatient R [facility] [id number] Univers 15:40:00 15:40:00 ERICK hugo [facility] 2021-05-31 2021-05-31 Outpatient [facility] [id number] Univers 14:15:00 14:15:00 ERICK celi [facility] 2021-05-31 2021-05-31 Knockdown Worker Temo, Emeka Lab Main [facility] 1.2.8 40.114 [id number] Univers 13:51:46 14:06:46 Visit Erick Martinez 350.1.13.10 it[place] of [place] [phone] [facility] 353 [facility] 2021-05-31 2021-05-31 Orders Doctor ROMO 1.2.840.114 [id number] Univers 00:00:00 00:00:00 Only Unassigned, NABIL 350.1.13.10 ity of [place] [facility] 4.2.7.2.686 Bill as [phone] [address] 2021-03-22 2021-03-22 Patient [facility] 1.2.840.114 [id number] Univers 00:00:00 00:00:00 Outreach Malena Quijano 350.1.13.10 [place] of [place] [phone] [facility] 044 [facility] 2021-03-21 2021-03-21 Office [facility] 1.2.840.114 [id number] Univers 16:12:19 16:38:35 Visit Erick Quijano 350.1.13.10 [place] [phone] [address] 2021-03-21 2021-03-21 Outpatient [facility] [id number] Univers 16:20:00 16:20:00 ERICK alatorre [facility] 2021-03-15 2021-03-15 [facility] 1.2.840.114 [id number] Univers 12:27:13 23:59:00 Encounter Erick COOK 350.1.13.10 ity of [facility] 4.2.7.2.[place] CENTER AT [phone] [facility] 800 [facility] 2021-03-15 2021-03-15 [facility] [id number] Univers 00:00:00 00:00:00 ERICK alatorre [facility] 2021-03-09 2021-03-09 Outpatient [facility] [id number] Univers 13:20:00 13:20:00 ERICK alatorre [facility] 2021-02-09 2021-02-09 Outpatient A_Byrd [facility] [id number] 210 [place] 09:16:00 09:16:00 [facility] 2021-02-08 2021-02-08 Telephone [facility] 1.2.840.114 [id number] Univers 00:00:00 00:00:00 Erick Quijano 350.1.13.10 i [place] of [place] [phone] Mt dical nal [address] [facility] 2021-02-07 2021-02-07 [facility] 1.2.840.114 [id number] Univers 12:23:20 23:59:00 Encounter Erick Quijano 350.1.13.10 it[place] of [place] [phone] [facility] [address] 2021-02-07 2021-02-07 [facility] 1.2.840.114 [id number] Univers 12:23:10 23:59:00 Encounter Erick Quijano 350.1.13.10 it[place] of [place] [phone] [facility] [address] [place] 2021-02-07 2021-02-07 Outpatient R [facility] [id number] Univers 00:00:00 23:59:00 ERICK celi [facility] 2021-02-07 2021-02-07 Outpatient R [facility] [id number] Univers 00:00:00 23:59:00 ERICK alatorre [facility] 2021-02-07 2021-02-07 Outpatient R [facility] [id number] Univers 00:00:00 00:00:00 ERICK celi [facility] 2020-12-26 2020-12-26 [facility] 1.2.840.114 [id number] Univers 00:00:00 00:00:00 Erick Quijano 350.1.13.10 i [place] of [place] [phone] Mt dical nal [address] [facility] 2020-12-16 2020-12-16 [facility] 1.2.840.114 [id number] Univers 09:32:19 23:59:00 Encounter Erick Quijano 350.1.13.10 it[place] of [place] [phone] [facility] [address] [place] 2020-12-16 2020-12-16 Outpatient R MERVIN [facility] [id number] Univers 00:00:00 00:00:00 ERICK alatorre [facility] 2020-12-16 2020-12-16 Orders Doctor CLARISSA 1.2.840.114 [id number] Univers 00:00:00 00:00:00 Only Unassigned, NABIL 350.1.13.10 ity of [place] [facility] 4.2.7.2.686 Bill as [phone] [facility] [address] [place] 2020-12-09 2020-12-09 Telephone [facility] 1.2.840.114 [id number] Univers 00:00:00 00:00:00 Erick Quijano 350.1.13.10 i [place] [phone] Mt dical nal 231 [facility] 2020-12-08 2020-12-08 Knockdown Worker Temo, Emeka Lab Main [facility] 1.2.8 40.114 [id number] Univers 15:56:50 16:11:50 Visit Erick Martinez 350.1.13.10 it[place] of [place] [phone] Mt dical nal 353 [facility] 2020-12-08 2020-12-08 Office [facility] 1.2.840.114 [id number] Univers 14:47:49 15:32:25 Visit Erick Quijano 350.1.13.10 i [place] [phone] Mt dical nal 044 [facility] 2020-12-08 2020-12-08 Outpatient R MERVIN [facility] [id number] Univers 14:40:00 14:40:00 ERICK alatorre [facility] 2020-11-01 2020-11-01 Office [facility] 1.2.840.114 [id number] Univers 12:49:53 13:09:53 Visit Igor Quijaon 350.1.13.10 i ty of [place] 4[place].2.[place] [phone] Mt dichi nal 059 [facility] 2020-11-01 2020-11-01 Outpatient R IMAN [facility] [id number] Univers 13:00:00 13:00:00 IGOR ity [facility] 2020-10-10 2020-10-10 Knockdown Worker Temo, Adc Lab Main [facility] 1.2.8 40.114 [id number] Univers 08:43:22 08:58:22 Visit Erick Martinez 350.1.13.10 ity [facility] [place].2.[place] [phone] [facility] 353 [facility] 2020-10-10 2020-10-10 Outpatient R MERVIN [facility] [id number] Univers 08:45:00 08:45:00 ERICK ithugo [facility] 2020-09-20 2020-09-20 Knockdown Worker Temo, Adc Lab Main [facility] 1.2.8 40.114 [id number] Univers 15:34:49 15:49:49 Visit Joya Fairchild 350.1. 13.10 ity [facility] [place]2.7.2.[place] [phone] [facility] 353 [facility] 2020-09-20 2020-09-20 Outpatient R EVERTON [facility] [id number] Univers 15:45:00 15:45:00 [facility] 2020-09-13 2020-09-13 Telephone [facility] 1.2.840.114 [id number] Univers 00:00:00 00:00:00 Erikc Quijano 350.1.13.10 i ty of [place] [phone] [facility] nal 044 [facility] 2020-09-09 2020-09-09 Office [facility] 1.2.840.114 [id number] Univers 10:01:08 11:20:19 Visit Erick Quijano 350.1.13.10 i ty of [place] 4[place].2.[place] [phone] Mt dical nal 044 [facility] 2020-09-09 2020-09-09 Outpatient R MERVIN [facility] [id number] Univers 10:00:00 10:00:00 ERICK ity of [facility] 2020-09-09 2020-09-09 Letter Doctor CLARISSA 1.2.840.114 [id number] Univers 00:00:00 00:00:00 (Out) Unassigned, NABIL 350.1.13.[address] [facility] 4.2.7.2.686 Bill as [phone] [address] 2020-09-09 2020-09-09 Telephone [facility] 1.2.840.114 [id number] Univers 00:00:00 00:00:00 [facility] 350.1.13.10 it y of [place] 4.2.7.2.686 Bill as Professio [phone] Mt dical nal 044 [place] Office [facility] One 2020-08-02 2020-08-02 Office [facility] 1.2.840.114 [id number] Univers 11:19:42 12:13:14 Visit Igor [place] 350.1.13.10 i ty of [place] [phone] Mt dical nal 059 [facility] 2020-08-02 2020-08-02 Outpatient [facility] [id number] Univers 11:40:00 11:40:00 IGOR ity of [facility] 2020-07-28 2020-07-28 Office Jani [facility] 1.2.840.114 [id number] Univers 09:08:12 09:44:07 Visit Keenan Quijano 350.1.13.10 i ty of [place].2.[place] [phone] Mt dical nal 085 [facility] 2020-07-28 2020-07-28 Outpatient R KEENAN HOLLAND [facility] [id number] Univers 09:00:00 09:00:00 KEENAN HOLLAND i ty of [facility] 2020-07-19 2020-07-19 Outpatient R IMAN [facility] [id number] Univers 13:20:00 13:20:00 IGOR ity of [facility] 2020-06-27 2020-06-27 Orders Doctor CLARISSA 1.2.840.114 [id number] Univers 00:00:00 00:00:00 Only Unassigned, NABIL 350.1.13.10 ity of [place] [facility] 4.2.7.2.686 Bill as [phone] [facility] [address] [place] 2020-06-21 2020-06-21 Telephone Iman [facility] 1.2.085.420 [id number] Univers 00:00:00 00:00:00 Igor [place] 350.1.13.10 i ty of [place].2.[place] [phone] Mt dical nal 059 [facility] 2020-06-15 2020-06-15 Hospital [facility] 1.2.840.114 [id number] Univers 09:04:56 23:59:00 Encounter Igor [place] 350.1.13.10 ity of [place] [phone] [facility] 8[address] [place] 2020-06-15 2020-06-15 Knockdown Worker Emeka Plascencia Lab Main [facility] 1.2.8 40.114 [id number] Univers 09:01:43 09:16:43 Visit Igor Valerioton 350.1.13.10 it[place] of [place].2.[place] [phone] Mt dical nal 353 [facility] 2020-06-15 2020-06-15 Outpatient R [facility] [id number] Univers 09:00:00 09:00:00 ity of [facility] 2020-06-15 2020-06-15 Outpatient [facility] [id number] Univers 09:00:00 09:00:00 IGOR ity of [facility] 2020-06-14 2020-06-14 Office [facility] 1.2.840.114 [id number] Univers 10:38:05 11:58:24 Visit Igor [place] 350.1.13.10 i ty of [place] 4.2.7.2.[place] [phone] Mt dical nal 9 [facility] 2020-06-14 2020-06-14 Outpatient R IMAN [facility] [id number] Univers 11:00:00 11:00:00 IGOR ity [facility] 2020-05-21 2020-05-21 Orders Doctor CLARISSA 1.2.840.114 [id number] Univers 00:00:00 00:00:00 Only Unassigned, NABIL 350.1.13.[address] [facility] 4.2.7.2.686 Bill as [phone] [address] 2020-04-19 2020-04-19 Outpatient R IMAN [facility] [id number] Univers 14:20:00 14:20:00 [facility] 2020-03-16 2020-03-16 Office [facility] 1.2.840.114 [id number] Univers 13:32:09 14:02:00 Visit Briana Quijano 350.1.13.10 [place] [phone] [facility] nal [address] [place] [address] 2020-03-16 2020-03-16 Outpatient [facility] [id number] Univers 13:40:00 13:40:00 BRIANA roldany o f [facility] 2020-01-06 2020-01-06 Outpatient R MEGAN [facility] [id number] Univers 13:15:00 13:15:00 ILANA ity [facility] 2019-12-29 2019-12-29 Telephone [facility] 1.2.282.578 [id number] Univers 00:00:00 00:00:00 Briana Quijano 350.1.13.10 ity of [place].2.[place] [phone] Mt dical nal [address] [place] [address] 2019-12-29 2019-12-29 Telephone [facility] 1.2.122.926 [id number] 00:00:00 00:00:00 Briana Quijano 350.1.13.10 [place] 4.2.7.2.686 Professio [phone] [address] 2019-12-23 2019-12-23 Outpatient R MEGAN, [facility] [id number] Univers 13:45:00 13:45:00 ILANA celi of [facility] 2019-12-15 2019-12-15 Laboratory Pc, Adc Echo Room 1 - [facility] 1 .2.840.114 [id number] Univers 15:02:38 16:02:38 Only Briana Sanabria 350.1.13.10 ity of [place]phie Márquez 4.2.7.2.686 [place] Professio [phone] Mt dic[address] 2019-12-15 2019-12-15 Laboratory Pc, [facility] 1.2.840.114 [id number] 15:02:38 16:02:38 Only Echo Room 1 [place] 350.1.13.10 - [place] 4.2.7.2.686 Professio [phone] [address] 2019-12-15 2019-12-15 Office [facility] 1.2.840.114 [id number] Univers 13:54:15 15:03:02 Visit Briana Quijano 350.1.13.10 ity of [place] [phone] [address] 2019-12-15 2019-12-15 Office [facility] 1.2.840.114 [id number] 13:54:15 15:03:02 Visit Briana Quijano 350.1.13.10 [place] 4.2.7.2.686 Professio [phone] [address] 2019-12-15 2019-12-15 Outpatient [facility] [id number] Univers 14:20:00 14:20:00 BRIANA alatorre o f [facility] 2019-12-15 2019-12-15 Orders Doctor ROMO 1.2.840.114 [id number] Univers 00:00:00 00:00:00 Only Unassigned, NABIL 350.1.13.10 ity of [place] [facility] 4.2.7.2.686 Bill as [phone] [address] 2019-12-15 2019-12-15 Orders Doctor CLRAISSA 1.2.840.114 [id number] 00:00:00 00:00:00 Only Unassigned, NABIL 350.1.13.10 [place] [facility] 4.2.7.2.686 [phone] 009 2019-12-01 2019-12-01 Outpatient Joby YANCEY [facility] [id number] Univers 15:45:00 15:45:00 MARIA VICTORIA ecli [facility] 2019-11-20 2019-11-20 Office [facility] 1.2.072.856 [id number] Univers 13:50:27 14:52:43 Visit Ilana Magdaleno REPULPING SUPERVISOR 350.1.13.10 it y [facility] 4.2.7.2.686 Bill as MATERNAL [phone] [facility] ical & CHILD [address] [place] [address] 2019-11-20 2019-11-20 Outpatient Joby [facility] [id number] Univers 13:45:00 14:52:43 ILANAJUNIOR alatorre [facility] 2019-11-18 2019-11-18 Outpatient Joby [facility] [id number] Univers 14:00:00 14:21:00 ILANAJUNIOR alatorre [facility] 2019-11-18 2019-11-18 Nurse Visit, Ang-Rmchp Nurse [facility] 1.2 .840.114 [id number] Univers 13:09:28 14:21:00 Visit Ilana Guzman REPULPING SUPERVISOR 350.1.13.10 ity [facility] 4.2.7.2.686 Bill as MATERNAL [phone] [facility] CHILD [address] [place] [address] 2019-11-18 2019-11-18 Orders Doctor ROMO 1.2.840.114 [id number] Univers 00:00:00 00:00:00 Only Unassigned, NABIL 350.1.13.10 [facility] 4.2.7.2.686 Bill as [phone] [address] 2019-10-30 2019-10-30 Orders Doctor ROMO 1.2.840.114 [id number] Univers 00:00:00 00:00:00 Only Unassigned, NABIL 350.1.13.10 ity of [place] [facility] 4.2.7.2.686 Bill as [phone] [facility] [address] 2019-08-20 2019-08-20 Outpatient R KEENAN HOLLAND [facility] [id number] Univers 00:00:00 00:00:00 KEENAN HOLLAND i ty of [facility] 2019-06-09 2019-06-09 [facility] 1.2.840.114 [id number] Univers 09:01:02 23:59:00 Encounter E [place] 350.1.13.10 ity of [place] [phone] [facility] [address] 2019-06-09 2019-06-09 [facility] Maria Victoria Mosquera [facility] 1.2.840.114 [id number] Univers 08:58:36 09:00:00 Encounter E [place] 350.1.13.10 ity of [place] 4[place].2.[place] [phone] [facility] [address] 2019-06-01 2019-06-01 Telephone Maria Victoria Mosquera [facility] 1.2.840.114 [id number] Univers 00:00:00 00:00:00 E Health 350.1.13.10 it y of [place].2.[place] - [phone] [facility] [address] 2019-05-28 2019-05-28 Office Care, Ang Primary [place] 1.2.840 .114 [id number] Univers 08:53:07 09:40:51 Visit Maria Victoria Mosquera [facility] 350.1.13.10 ity of [place].2.[place] [phone] [facility] [address] 2019-05-28 2019-05-28 Orders Doctor CLARISSA 1.2.840.114 [id number] Univers 00:00:00 00:00:00 Only Unassigned, NABIL 350.1.13.10 ity of [place] [facility] 4.2.7.2.686 Bill as [phone] [facility] [address] Results Test Description Test Time Test Comments Results Result Comments Source [facility] 2022-09-22 04:18:40 Test Item Value Reference Range Interpretation Comme nts TSH, THIRD GENERATION (test 6.270 UIU/ML 0.400-4.100 H UNLESS OTHERWISE INDICATED, code = 2821) ALL TESTING PER FORMED ATCLINICAL PATH [facility]LOGY LABORATORIES, [facility]. [address] [place] [address] 2853 ASSISTED LIVING HOME DIRECTOR: Aram SIMON [id number] [facility] [place] [id number]
[2023-06-25 15:57] LABS: Absolute Lymphocytes (CBC) 1.8 K/uL (0.7-4.9); Hematocrit 39.3 % (36.0-45.0); Lymphocytes % 28.1 % (15.3-44.8); MCV 87.8 fL (80-100); MPV 7.9 fL (7.6-11.3); Platelets 278 thou/uL (152-406); RBC Red Blood Cell Count 4.48 M/uL (3.86-4.86)
[2023-06-25 16:20] LABS: Albumin 4.1 g/dL (3.4-5.0); Potassium 3.7 mEq/L (3.5-5.1)
[2023-06-25] MEDS ORDERED: ONDANSETRON 4 MG/2 ML VIAL ONE (16:51)
--- NOTE | 2023-06-25 17:07 | ER ---
Nurse's Notes [facility] Name: Hillary Olivares Age: 47 yrs Sex: Female : 1975 Arrival Date: 06/25/2023 Time: 14:16 Bed 24 Private MD: Diagnosis: Viral infection, unspecified;Nausea Presentation: 06/25 14:31 Chief complaint: Patient states: "since yesterday, I've been nauseous. I was around a [facility] friend who had the flu. I feel congested and have a slight headache." Pt denies SOB/V/D. Coronavirus screen: Vaccine status: Patient reports receiving the 2nd dose of the covid vaccine. Ebola Screen: No symptoms or risks identified at this time. Initial Sepsis Screen: Does the patient meet any 2 criteria? No. Patient's initial sepsis screen is negative. Does the patient have a suspected source of infection? No. Patient's initial sepsis screen is negative. Risk Assessment: Do you want to hurt yourself or someone else? Patient reports no desire to harm self or others. Onset of symptoms was June 25, 2023. 14:31 Method Of Arrival: Ambulatory [facility] 14:31 Acuity: ALBERTO 3 mb9 Triage Assessment: 14:35 General: Appears in no apparent distress. Behavior is calm, cooperative. Pain: Denies [facility] pain. Neuro: Level of Consciousness is awake, alert, obeys commands, Oriented to person, place, time, situation, Appropriate for age. Cardiovascular: Patient's skin is warm and dry. Respiratory: Airway is patent Respiratory effort is even, unlabored, Respiratory pattern is regular, symmetrical. GI: Reports nausea. : No signs and/or symptoms were reported regarding the genitourinary system. Derm: Skin is pink, warm \\T\\ dry. Musculoskeletal: Range of motion:. 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 - Social history:: Smoking status: Patient denies any tobacco usage or history of. Screenin:47 [facility] ED Fall Risk Assessment (Adult) Score/Fall Risk Level 0 - 2 = Low Risk. Abuse dd1 screen: Denies threats or abuse. Nutritional screening: No deficits noted. Tuberculosis screening: No symptoms or risk factors identified. Assessment: 14:35 Reassessment: see triage assessment. mb9 16:47 GI: No deficits noted. Reports lower abdominal pain, upper abdominal pain, nausea, pt dd1 states nausea with no vomiting for 3 days, states no bowel problems. states no fevers, pt does states having close contact with friend who is sick with flu. Vital Signs: 14:31 BP 141 / 79; Pulse 67; Resp 18; Temp 99; Pulse Ox 100% ; Weight 61.69 kg; Height 5 ft. mb9 3 in. ; Pain 0/10; 16:46 BP 168 / 86; Pulse 68; Resp 17; Pulse Ox 100% ; Pain 0/10; dd1 14:31 Body Mass Index 24.09 (61.69 kg, 160.02 cm) mb9 14:31 Pain Scale: Adult mb9 16:46 Pain Scale: Adult dd1 ED Course: 14:19 Patient arrived in ED. im 14:20 Dariana Orr, CRIS is PHCP. aj3 14:20 Amaury Drummond DO is Attending Physician. aj3 14:33 Triage completed. mb9 14:34 Arm band placed on. mb9 14:35 Adult w/ patient. mb9 15:20 Jocelin Rhoades, RN is Primary Nurse. jl7 15:30 Missed attempt(s): 22 gauge in right antecubital area. bc6 15:59 Flu Sent. bc6 15:59 COVID-19 SARS RT PCR Sent. bc6 15:59 CBC with Diff Sent. bc6 15:59 CMP Sent. bc6 15:59 Lipase Sent. bc6 15:59 Inserted saline lock: 22 gauge in right wrist, using aseptic technique. bc6 16:47 No provider procedures requiring assistance completed. dd1 17:22 Provided Education on: DC INSTRUCTIONS. dd1 17:22 IV discontinued. dd1 Administered Medications: 16:43 Drug: Ondansetron IVP 4 mg IVP once; over 2 minutes Route: IVP; Site: right antecubital;dd1 Medication: 16:47 VIS not applicable for this client. dd1 Outcome: 17:06 Discharge ordered by MD. aj3 17:22 Discharged to home ambulatory, dd1 17:22 Condition: good 17:22 Discharge instructions given to patient, 17:23 Patient left the ED. dd1 Signatures: Jocelin Rhoades RN RN jl7 Dariana Orr NP MACARONI MAKER ernst3 Rebecca, Melinda Mijares RN RN mb9 Teresa West 6 Zully Patel Daniel RN RN dd1 Corrections: (The following items were deleted from the chart) 14:37 14:31 Acuity: ALBERTO 4 mb9 mb9
--- NOTE | 2023-06-25 17:07 | EDPHYS ---
Physician Documentation [facility] Name: Hillary Olivares Age: 47 yrs Sex: Female : 1975 Arrival Date: 06/25/2023 Time: 14:16 Bed 24 Private MD: ED Physician Amaury Drummond HPI: 06/25 14:40 This 47 yrs old Female presents to ER via Ambulatory with complaints of Fever, Nausea. aj3 14:40 Patient reports she started experiencing subjective fever, nausea and TRUJILLO about 24 hours aj3 ago after being around sick contact with similar symptoms. . 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 - Social history:: Smoking status: Patient denies any tobacco usage or history of. ROS: 14:40 Neck: Negative for injury, pain, and swelling, Cardiovascular: Negative for chest pain, aj3 palpitations, and edema, Respiratory: Negative for shortness of breath, cough, wheezing, and pleuritic chest pain, 14:40 : Negative for dysuria, hematuria, discharge or pelvic pain MS/Extremity: Negative for injury and deformity, Skin: Negative for injury, rash, and discoloration, 14:40 Constitutional: Positive for fever, malaise, 14:40 Abdomen/GI: Positive for nausea, Negative for vomiting, diarrhea, constipation, 14:40 : Negative for 14:40 Neuro: Positive for headache, Negative for dizziness, numbness, syncope, weakness, Exam: 14:40 Constitutional: This is a well developed, well nourished patient who is awake, alert, aj3 and in no acute distress. Head/Face: Normocephalic, atraumatic. Cardiovascular: Regular rate and rhythm with a normal S1 and S2. No gallops, murmurs, or rubs. Normal PMI, no JVD. No pulse deficits. Respiratory: Lungs have equal breath sounds bilaterally, clear to auscultation and percussion. No rales, rhonchi or wheezes noted. No increased work of breathing, no retractions or nasal flaring. Abdomen/GI: Soft, non-tender, with normal bowel sounds. No distension or tympany. No guarding or rebound. No evidence of tenderness throughout. Skin: Warm, dry with normal turgor. Normal color with no rashes, no lesions, and no evidence of cellulitis. MS/ Extremity: Pulses equal, no cyanosis. Neurovascular intact. Full, normal range of motion. Neuro: Awake and alert, GCS 15, oriented to person, place, time, and situation. Motor strength 5/5 in all extremities. Sensory grossly intact. Normal gait. Vital Signs: 14:31 BP 141 / 79; Pulse 67; Resp 18; Temp 99; Pulse Ox 100% ; Weight 61.69 kg; Height 5 ft. mb9 3 in. ; Pain 0/10; 16:46 BP 168 / 86; Pulse 68; Resp 17; Pulse Ox 100% ; Pain 0/10; dd1 14:31 Body Mass Index 24.09 (61.69 kg, 160.02 cm) mb9 14:31 Pain Scale: Adult mb9 16:46 Pain Scale: Adult dd1 MDM: 14:31 Patient medically screened. 15:00 Differential diagnosis: Flu, Covid, RSV, electrolyte imbalance, dehydration. 17:00 Data reviewed: vital signs, nurses notes, lab test result(s), I have discussed the patient's presentation/case with the attending Emergency Department Physician;. I considered the following discharge prescriptions or medication management in the emergency department Medications were administered in the Emergency Department. See MAR. Test considered but Not performed: CT: labs and exam did not warrant imaging today. Historians other than the Patient: Family Member: sister. Counseling: I had a detailed discussion with the patient and/or guardian regarding the historical points, exam findings, and any diagnostic results supporting the discharge/admit diagnosis, lab results, the need for outpatient follow up, to return to the emergency department if symptoms worsen or persist or if there are any questions or concerns that arise at home. Medication response: Zofran markedly relieved the patient's nausea. 06/25 15:22 Order name: CBC with Diff; Complete [facility]: 16:05 [facility] 06/25 15:22 Order name: CMP; Complete Time: 16:52 06/25 15:22 Order name: Lipase; Complete Time: 16:52 [facility] 06/25 15:22 Order name: COVID-19 SARS RT PCR; Complete Time: 16:52 [facility] 06/25 15:22 Order name: Flu; Complete Time: 16:52 [facility] 06/25 15:22 Order name: IV Saline Lock; Complete Time: 15:59 3 06/25 15:22 Order name: Labs collected and sent; Complete Time: 15:59 aj3 Administered Medications: 16:43 Drug: Ondansetron IVP 4 mg IVP once; over 2 minutes Route: IVP; Site: right antecubital;dd1 Disposition: 21:23 I was immediately available on-site in the Emergency Department for consultation in the ms3 care of the patient. 21:24 Co-signature as Attending Physician, Amaury Drummond DO. ms3 Disposition Summary: 06/25/23 17:06 Discharge Ordered Notes: Location: Home aj3 Problem: new aj3 Symptoms: have improved aj3 Condition: Stable aj3 Diagnosis - Viral infection, unspecified aj3 - Nausea aj3 Followup: aj3 - With: Private Physician - When: - Reason: Recheck today's complaints, Re-evaluation by your physician Followup: aj3 - With: Emergency Department - When: - Reason: Trouble breathing, Worsening of condition Discharge Instructions: - Discharge Summary Sheet aj3 - Nausea, Adult, [id number] aj3 - Viral Illness, Adult aj3 Forms: - Medication Reconciliation Form aj3 - Thank You Letter aj3 - Antibiotic Education aj3 - Prescription Opioid Use aj3 - Patient Portal Instructions aj3 - Leadership Thank You Letter aj3 Prescriptions: - ondansetron 4 mg Oral Tablet,disintegrating - take 1 tablet ORAL route every 8 hours; 9 tablet; Refills: 0, Product Selection aj3 Permitted Signatures: Dispatcher [employer] EDAmaury Garcia DO DO ms3 Dariana Orr, CRIS WALLCOVERING HANGER aj3 Melinda Fernandez RN RN mb9 Guillermo Diaz RN RN dd1
[2023-06-25 18:13] VITALS: TEMP 99; O2SAT 100
[2023-06-25 18:15] VITALS: BP 168/86
== END 2023-06-25 17:23 | disposition home or self-care (01) ==
LOC: ER 14:16
DX: B34.9 Viral infection, unspecified (principal); Z20.822 Contact with and (suspected) exposure to COVID-19
CPT/HCPCS: 36415; 80053; 83690; 85025; 87635; 87804; J2405

== ENCOUNTER 2024-02-07 17:58 | Emergency (ER) | payer OTHER ==
--- OUTSIDE RECORDS SUMMARY | 2024-02-07 18:01 | XMS REPORT | Continuity of Care Document ---
Author Name Unknown Address [address] [facility] [address] [place] [address] [facility] thconnect Address [address] [facility] 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 Role Phone QUETA BAR Primary Care Physician Unavailab QUETA Hamm Attending Clinician Unavailab le LAB90 Attending Clinician Unavailable STU LAZAR Attending Clinician Unavailable Doctor Unassigned, Waikele Attending Clinician U navailable Queta Amin Attending Clinician [phone] QUETA BAR Attending Clinician Unavailable POOJA ALEGRIA Attending Clinician Unavailable Pooja Alegria MD Attending Clinician [phone] ERICK MARTINEZ Attending Clinician Unavailable (TECH), ANG-DB EMG/NCV TESTING Attending Clinici an Unavailable EDUAR TRAN Attending Clinician Unavail able EDUAR TRAN Attending Clinician Unavail able Eduar Tran MD Attending Clinician Lab, Ang - Db Attending Clinician Unavailable Erick Martinez MD Attending Clinician [phone] BRIANA SANABRIA Attending Clinician Unavailable 2, Adc Lab Attending Clinician Unavailable Pob, Adc Lab Main Attending Clinician UnavailMalena Jaramillo LMSW Attending Clinician [phone] A_Byrd Attending Clinician Unavailable Raul Valerio MD Attending Clinician [phone] SEWANI, RAUL Attending Clinician Unavailable Joya Fairchild MD Attending Clinician [phone] JOYA FAIRCHILD Attending Clinician UnaKeenan Ahuja DO Attending Clinician [phone] KEENAN HOLLAND Attending Clinician Unavailable KEENAN HOLLAND Attending Clinician Unavailable Daniele TRUONG, Briana Attending Clinician [phone] GOLDIE GUZMAN Attending Clinician Unavailsangita faith Pc, Adc Echo Room 1 - Attending Clinician Reinier Márquez MD, Send[facility] K.[facility]. Attending Clinician + [phone] KAILYN YANCEY Attending Clinician Unavailable Goldie Fall Attending Clinician [phone] [facility] Kailyn Nunes Attending Clinician [phone] Care, Andrew Primary Attending Clinician UnavailQUETA Sellers Admitting Clinician Unavailable POOJA ALEGRIA Admitting Clinician Unavailable EDUAR TRAN Admitting Clinician Unavail channing Seaman Admitting Clinician Unavailable Payers Payer Name Policy Type Policy Number Effective Date Expirati on Date Source AETLASHELL MP [facility] S O BUSINESS MANAGEMENT INTERN 94 ON 9 [id number] 2023 00:00:00 [facility] [id number] 2019 00:00:00 [facility] [id number] [place] [id number] 2019 00:00:00 Problems Condition Name Condition Details Condition Category Status Onset Date Resolution Date Last Treatment Date Treating Clinician Comments Source Forgetfuln ess Forgetfuln ess Disease Active 2020-10 00:00: 00 [facility] Non compliance with medical treatment Non compliance with medical treatment Disease Active 2020-10 00:00: 00 [facility] 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, 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, face and neck Disease Active 06-23 00:00: 00 [facility] Need for influenza vaccinatio n Need for influenza vaccinatio n Disease Active 2021-0 9-17 00:00: 00 [facility] Need for hepatitis C screening test Need for hepatitis C screening test Disease Active 6-15 00:00: 00 [facility] Palpitatio ns Palpitatio ns Disease Active 3-04 00:00: 00 [facility] Severe major depression Severe major depression Disease Active 3-04 00:00: 00 [facility] Encounter for screening mammogram for malignant neoplasm of breast Encounter for screening mammogram for malignant neoplasm of breast Disease Active 3-04 00:00: 00 [facility] Essential hypertensi on Essential hypertensi on Disease Active 2019-10 2-04 00:00: 00 [facility] Vision changes Vision changes Disease Active 2019-10 2-04 00:00: 00 [facility] Generalize d anxiety disorder Generalize d anxiety disorder Disease Active 2019-10 2- 00:00: 00 [facility] Nicotine dependence with current use Nicotine dependence with current use Disease Active 2-14 00:00: 00 [facility] S/P hysterecto my S/P hysterecto my Disease Active 2-14 00:00: 00 [facility] BMI 21.0-21.9, adult BMI 21.0-21.9, adult Disease Active 2-14 00:00: 00 [facility] Cervical polyp Cervical polyp Disease Active 2-14 00:00: 00 [facility] Nicotine dependence with current use Nicotine dependence with current use Disease Active 2-14 00:00: 00 [facility] Primary hypothyroi dism Primary hypothyroi dism Disease Active 9-24 00:00: 00 [facility] Allergies, Adverse Reactions, Alerts Allergy Name Allergy Type Status Severity Reaction(s) Onset Date Inactive Date Treating Clinician Comments Source CODEINE DRUG INGREDI Active High Hives 2-14 00:00: 00 [facility] Codeine Drug Allergy Active Hives 2-14 00:00: 00 [facility] Codeine Propensi ty to adverse reaction s Active Hives 11-20 00:00: 00 Lulu Vasques - Externa l Social History Social Habit Start Date Stop Date Quantity Comments Source Sexual orientation Kathe ashleighhugo Layo - External History of tobacco use Cigarette Smoker Lulu matthew - External History SDOH Alcohol Frequency [facility] History SDOH Alcohol Std Drinks [facility] History SDOH Alcohol Binge [facility] Cigarettes smoked current (pack per day) - Reported 2023-12-23 00:00:00 2023-12-23 00:00:00 Lulu Vasques - External History of Social function 2023-12-23 00:00:00 2023-12-23 00:00:00 Lulu Vasques - External Exposure to SARS-CoV-2 (event) 2022-02-10 00:00:00 2022-02-20 14:26:00 Not sure [facility] Alcohol intake 2020-12-26 00:00:00 2020-12-26 00:00:00 Current drinker of alcohol (finding) [facility] Alcohol Comment 2019-11-20 00:00:00 2019-11-20 00:00:00 occasional [facility] Cigarette pack-years 2019-07-24 00:00:00 2019-07-24 00:00:00 [facility] Tobacco use and exposure 2019-07-24 00:00:00 2019-07-24 00:00:00 Smokeless tobacco non-user [facility] Sex Assigned At 1975 00:00:00 1975 00:00:00 Lulu Vasques - External Smoking Status Start Date Stop Date Source Smokes tobacco daily 2023-12-23 00:00:00 Lulu Vasques - External Ex-smoker 2021-11-16 00:00:00 2021-11-16 00:00:00 [facility] Occasional tobacco smoker 2019-07-24 00:00:00 [facility] Medications Ordered Medication Name Filled Medication Name Start Date Stop Date Current Medication? Ordering Clinician Indication Dosage Frequency Signature (SIG) Comments Components Source Levothyroxi ne Sodium 88 MCG oral Tablet 12-22 00:00: 00 Yes [id number] 88ug Take 1 tablet (88 mcg total) by mouth daily. Lulu Vasques - Externa l Levothyroxi ne Sodium 88 MCG oral Tablet 12-16 00:00: 00 12-22 00:00 :00 No Lulu Vasques - Externa l thyroid (ARMOUR THYROID) 30 mg tablet 2020-10 00:00: 00 Yes [id number] 45mg Take 1.5 tablets by mouth every morning. [facility] PARoxetine (PAXIL) 10 mg tablet 07-06 00:00: 00 Yes [id number] 10mg Take 1 tablet by mouth at bedtime. [facility] amLODIPine- benazepriL 5-10 mg per capsule 06-26 00:00: 00 Yes [id number] 1{capsu le} Take 1 capsule by mouth daily. [facility] hydrOXYzine 50 mg tablet 06-26 00:00: 00 Yes [id number] 50mg Take 1 tablet by mouth 3 (three) times daily as needed for Anxiety. [facility] metoprolol succinate XL 25 mg 24 hr tablet 06-26 00:00: 00 Yes [id number] 25mg Take 1 tablet by mouth daily. [facility] buPROPion SR (WELLBUTRIN SR) 100 mg SR tablet 06-23 00:00: 00 Yes [id number] 100mg Take 1 tablet by mouth 2 (two) times daily. [facility] Immunizations Ordered Immunization Name Filled Immunization Name Date Status Comments Source SARS-COV-2 COVID-19 PFIZER VACCINE 2021-09-14 00:00:00 Completed [facility] SARS-COV-2 COVID-19 PFIZER VACCINE 2021-09-14 00:00:00 Completed [facility] SARS-COV-2 COVID-19 PFIZER VACCINE 2021-09-14 00:00:00 Completed [facility] SARS-COV-2 COVID-19 PFIZER VACCINE 2021-09-14 00:00:00 Completed [facility] SARS-COV-2 COVID-19 MODERNA VACCINE 2021-03-18 00:00:00 Completed [facility] SARS-COV-2 COVID-19 MODERNA 12+ YRS VACCINE 2021-03-18 00:00:00 Completed [facility] SARS-COV-2 COVID-19 MODERNA 12+ YRS VACCINE 2021-03-18 00:00:00 Completed [facility] SARS-COV-2 COVID-19 MODERNA 12+ YRS VACCINE 2021-03-18 00:00:00 Completed [facility] SARS-COV-2 COVID-19 MODERNA VACCINE 2021-02-16 00:00:00 Completed [facility] SARS-COV-2 COVID-19 MODERNA 12+ YRS VACCINE 2021-02-16 00:00:00 Completed [facility] SARS-COV-2 COVID-19 MODERNA 12+ YRS VACCINE 2021-02-16 00:00:00 Completed [facility] SARS-COV-2 COVID-19 MODERNA 12+ YRS VACCINE 2021-02-16 00:00:00 Completed [facility] Influenza Virus Vaccine Quad .5 mL IM 6+ MO 2019-11-20 00:00:00 Completed [facility] Influenza Virus Vaccine Quad .5 mL IM 6+ MO 2019-11-20 00:00:00 Completed [facility] Influenza Virus Vaccine Quad .5 mL IM 6+ MO 2019-11-20 00:00:00 Completed [facility] Influenza Virus Vaccine Quad .5 mL IM 6+ MO 2019-11-20 00:00:00 Completed [facility] Influenza Virus Vaccine, No Preserv, age 6 months and up Unknown Completed Lulu Seybold - External Covid-19 Vaccine Moderna (Spikevax), Mrna-lnp, Marco Protein, Pf Unknown Completed Lulu Seybold - External Covid-19 Vaccine Moderna (Spikevax), Mrna-lnp, Marco Protein, Pf [facility] Influenza Virus Vaccine Quad .5 mL IM 6+ MO (FLUZONE/FLULAVAL/F LUARIX) Unknown Completed [facility] SARS-COV-2 COVID-19 MODERNA 12+ YRS VACCINE Unknown Completed [facility] SARS-COV-2 COVID-19 MODERNA 12+ YRS VACCINE Unknown Completed [facility] Influenza Virus Vaccine Quad .5 mL IM 6+ MO (FLUZONE/FLULAVAL/F LUARIX) Unknown Completed [facility] Vital Signs Vital Name Observation Time Observation Value Comments S ource Systolic blood pressure 2023-12-23 13:25:00 122 mm[Hg] Lulu Barrybo ld - External Diastolic blood pressure 2023-12-23 13:25:00 80 mm[Hg] Lulu Barrybo ld - External Heart rate 2023-12-23 13:25:00 88 /min Kel y Seybold - External Body temperature 2023-12-23 13:25:00 36.06 Marie Lluu Seybold - External Respiratory rate 2023-12-23 13:25:00 16 /min Lulu Barrybold - External Body height 2023-12-23 13:25:00 160 cm Mari ey Seybold - External Body weight 2023-12-23 13:25:00 64.864 kg Mari ey Seybold - External BMI 2023-12-23 13:25:00 25.33 kg/m2 Mari ey Seybold - External Oxygen saturation in Arterial blood by Pulse oximetry 2023-12-23 13:25:00 96 /min Lulu Buscho ld - External Procedures Procedure Date / Time Performed Performing Clinicia n Source OP CORRESPONDENCE 2022-08-03 05:01:00 Doctor Reina ssigned, Waikele [facility] Encounters Start Date/Time End Date/Time Encounter Type Admission Type Attending [facility] Care Facility Care Department Encounter ID Source 2024-02-19 15:30:00 2024-02-19 15:30:00 Outpatient QUETA CRAMER [id number] [facility] 2024-01-21 08:00:00 2024-01-21 08:00:00 Outpatient QUETA CRAMER [id number] Lulu tiff 2023-12-23 09:15:00 2023-12-23 09:15:00 Outpatient LAB90 [facility] LAL [id number] [facility] 08:30:00 2023-12-23 08:30:00 Outpatient QUETA CRAMER [id number] [facility] 2022-08-03 00:00:00 2022-08-03 00:00:00 Orders Only Doctor Unassigned, Waikele [facility] 1.0.114 350.1.13.10 4.2.7.2.686 [id number] [facility] 2022-06-14 00:00:00 2022-06-14 00:00:00 [facility] 1.20.114 350.1.13.10 4.2.7.2.686 [id number] [facility] 2022-06-07 00:00:00 2022-06-07 00:00:00 [facility] 1.2.114 350.1.13.10 4.2.7.2.686 [id number] [facility] 2022-02-27 00:00:00 2022-02-27 00:00:00 Outpatient R QUETA BAR [facility] [id number] [facility] 2022-02-20 14:37:31 2022-02-20 23:59:00 Outpatient R QUETA BAR [facility] [id number] [facility] 2022-02-20 14:37:31 2022-02-20 23:59:00 Outpatient R QUETA BAR [facility] [id number] [facility] 2022-02-20 14:20:00 2022-02-20 23:59:00 Hospital Encounter Queta Bar [facility] 1..114 350.1.13.10 4.2.7.2.686 [id number] [facility] 2022-02-14 00:00:00 2022-02-14 00:00:00 [facility] 1.20.114 350.1.13.10 4.2.7.2.686 [id number] [facility] 2022-02-11 16:49:00 2022-02-11 18:59:00 Emergency X POOJA ALEGRIA [facility] [id number] [facility] 2022-02-11 16:49:00 2022-02-11 18:59:00 Emergency Pooja Alegria [facility] 1.840.114 350.1.13.10 4.2.7.2.686 [id number] [facility] 2022-02-08 11:30:00 2022-02-08 13:05:54 [facility] 1.84.114 350.1.13.10 4.2.7.2.686 [id number] [facility] 2022-02-08 11:30:00 2022-02-08 13:05:54 Outpatient R QUETA BAR [facility] [id number] [facility] 2022-02-08 11:30:00 2022-02-08 13:05:54 Outpatient R QUETA BAR [facility] [id number] [facility] 2022-02-08 11:30:00 2022-02-08 11:30:00 Outpatient R QUETA BAR [facility] [id number] [facility] 2022-02-08 00:00:00 2022-02-08 00:00:00 Telephone [facility]Samantha [facility] DELLA?[facility] 1.840.114 350.1.13.10 4.2.7.2.686 [id number] [facility] 2022-02-08 00:00:00 2022-02-08 00:00:00 Telephone [facility]Samantha [facility] DE[facility] 1.84.114 350.1.13.10 4.2.7.2.686 [id number] [facility] 2022-02-06 14:00:00 2022-02-06 14:00:00 Outpatient R QUETA BAR [facility] [id number] [facility] 2022-01-29 00:00:00 2022-01-29 00:00:00 Orders Only Doctor Unassigned, Waikele [facility] .840.114 350.1.13.10 4.2.7.2.686 [id number] [facility] 2021-12-11 00:00:00 2021-12-11 00:00:00 Orders Only Doctor Unassigned, Waikele [facility] ..840.114 350.1.13.10 4.2.7.2.686 [id number] [facility] 2021-12-07 11:20:00 2021-12-07 11:20:00 Outpatient R ERICK MARTINEZ [facility] [id number] [facility] 2021-12-07 11:20:00 2021-12-07 11:20:00 Outpatient R ERICK MARTINEZ [facility] [id number] [facility] 2021-12-07 11:20:00 2021-12-07 11:20:00 Outpatient R ERICK MARTINEZ [facility] [id number] [facility] 2021-11-27 11:30:00 2021-11-27 23:59:00 Outpatient R QUETA BAR [facility] [id number] [facility] 2021-11-27 11:30:00 2021-11-27 11:30:00 Outpatient R (VIANCA)CAROLINA [facility] [id number] [facility] 2021-11-16 16:00:00 2021-11-16 16:34:17 Office Visit Queta Bar [facility] DELLA?[facility] 1.2.840.114 350.1.13.10 4.2.7.2.686 [id number] [facility] 2021-11-16 16:00:00 2021-11-16 16:34:17 Outpatient R QUETA BAR [facility] [id number] [facility] 2021-11-16 16:00:00 2021-11-16 16:34:17 Outpatient R QUETA BAR [facility] [id number] [facility] 2021-11-16 16:00:00 2021-11-16 16:00:00 Outpatient R QUETA BAR [facility] [id number] [facility] 2021-11-15 16:00:00 2021-11-15 16:00:00 Outpatient R GISELAMARILOUERICK ALEJANDRA [facility] [id number] [facility] 2021-11-09 00:00:00 2021-11-09 00:00:00 Orders Only Doctor Unassigned, Waikele [facility] 1.2.840.114 350.1.13.10 4.2.7.2.686 [id number] [facility] 2021-10-12 10:30:00 2021-10-12 11:18:50 Office Visit Queta Bar [facility] 1.2.840.114 350.1.13.10 4.2.7.2.686 [id number] [facility] 2021-10-12 10:30:00 2021-10-12 11:18:50 Outpatient R MADELEINECLARITAQUETA [facility] [id number] [facility] 2021-10-12 10:30:00 2021-10-12 11:18:50 Outpatient R YOSVANYQUETA [facility] [id number] [facility] 2021-10-12 10:30:00 2021-10-12 11:18:50 Outpatient R QUETA BAR [facility] [id number] [facility] 2021-10-12 10:30:00 2021-10-12 10:30:00 Outpatient R QUETA BAR [facility] [id number] [facility] 2021-10-05 14:30:00 2021-10-05 14:30:00 Outpatient R QUETA BAR [facility] [id number] [facility] 2021-10-05 14:30:00 2021-10-05 14:30:00 Outpatient R QUETA BAR [facility] [id number] [facility] 2021-10-02 14:30:00 2021-10-02 15:00:00 [facility] 1.2.840.114 350.1.13.10 4.2.7.2.686 [id number] [facility] 2021-10-02 14:30:00 2021-10-02 14:30:00 Outpatient R QUETA BAR [facility] [id number] [facility] 2021-10-02 14:30:00 2021-10-02 14:30:00 Outpatient R QUETA BAR [facility] [id number] [facility] 2021-09-19 15:40:00 2021-09-19 15:40:00 Outpatient EDUAR PEREZ HOWARD [facility] [id number] [facility] 2021-09-19 15:40:00 2021-09-19 15:40:00 Office Visit Eduar Tran [facility] 1.2.840.114 350.1.13.10 4.2.7.2.686 [id number] [facility] 2021-09-19 14:45:00 2021-09-19 14:50:20 Outpatient EDUAR PEREZ HOWARD [facility] [id number] [facility] 2021-09-19 14:26:45 2021-09-19 14:41:45 Color Control Supervisor Visit Lab, Andrew Stewart Eduar Tran REPLACED BY [facility] 1.2.840.114 350.1.13.10 4.2.7.2.686 [id number] [facility] 2021-09-19 15:40:00 2021-09-19 14:27:03 Outpatient EDUAR PEREZ HOWARD [facility] [id number] [facility] 2021-09-15 13:00:00 2021-09-15 23:59:00 Outpatient QUETA CHI [facility] [id number] [facility] 2021-09-15 12:58:38 2021-09-15 23:59:00 [facility] 1.2.840.114 350.1.13.10 4.2.7.2.686 [id number] [facility] 2021-09-15 13:00:00 2021-09-15 13:00:00 Outpatient QUETA CHI [facility] [id number] [facility] 2021-09-15 13:00:00 2021-09-15 13:00:00 Outpatient QUETA CHI [facility] [id number] [facility] 2021-09-15 13:00:00 2021-09-15 13:00:00 Outpatient QUETA CHI [facility] [id number] [facility] 2021-09-14 16:35:22 2021-09-14 16:50:22 Color Control Supervisor Visit Lab, Andrew [facility]AH [facility] OFF[facility] BUILD[facility] 1.2.840.114 350..13.10 4.2.7.2.686 [id number] [facility] 2021-09-14 16:45:00 2021-09-14 16:48:58 Outpatient R QUETA BAR [facility] [id number] [facility] 2021-09-14 16:35:22 2021-09-14 16:48:58 Color Control Supervisor Visit Lab, Andrew Stewart Yosvany [facility] 1..840.114 350.1.13.10 4.2.7.2.686 [id number] [facility] 2021-09-14 14:46:46 2021-09-14 16:04:54 [facility] 1..840.114 350.1.13.10 4.2.7.2.686 [id number] [facility] 2021-09-14 14:30:00 2021-09-14 16:04:54 Outpatient R QUETA BAR [facility] [id number] [facility] 2021-09-14 14:30:00 2021-09-14 16:04:54 Outpatient R QUETA BAR [facility] [id number] [facility] 2021-09-14 14:30:00 2021-09-14 16:04:54 Outpatient R QUETA BAR [facility] [id number] [facility] 2021-09-08 16:20:00 2021-09-08 17:03:49 Outpatient R ERICK MARTINEZ [facility] [id number] [facility] 2021-09-08 15:55:23 2021-09-08 17:03:49 Office Visit Erick Martinez [facility] N[facility] BUILD[facility] 1..840.114 350.1.13.10 4.2.7.2.686 [id number] [facility] 2021-07-26 13:40:00 2021-07-26 13:40:00 [facility] [id number] [facility] 2021-07-26 13:40:00 2021-07-26 13:40:00 [id number] [facility] 2021-07-07 15:11:03 2021-07-07 15:26:03 Color Control Supervisor Visit 2, [facility]c Lab [facility] 1..114 350.1.13.10 4.2.7.2.686 [id number] [facility] 2021-07-07 15:15:00 2021-07-07 15:15:00 Outpatient R GISELAVICKIERICK WELSH [facility] [id number] [facility] 2021-07-07 15:00:00 2021-07-07 15:00:00 Outpatient R JUAN ERICK [facility] [id number] [facility] 2021-06-27 00:00:00 2021-06-27 00:00:00 Patient Secure Msg Doctor Unassigned, Waikele [facility] 1..114 350.1.13.10 4.2.7.2.686 [id number] [id number] [facility] 2021-06-27 00:00:00 2021-06-27 00:00:00 Telephone Erick Martinez [facility] Building 1..114 350.1.13.10 4.2.7.2.686 [id number] [facility] 2021-06-26 00:00:00 2021-06-26 00:00:00 [facility] 1..114 350.1.13.10 4.2.7.2.686 [id number] [facility] 2021-06-23 15:41:02 2021-06-23 16:21:51 Office Visit Erick Martinez [facility] 1.2.840.114 350.1.13.10 4.2.7.2.686 [id number] [facility] 2021-06-23 15:40:00 2021-06-23 16:21:51 Outpatient R ERICK MARTINEZ [facility] [id number] [facility] 2021-06-23 15:40:00 2021-06-23 15:40:00 Outpatient R GISELAMARILOUERICK ALEJANDRA [facility] [id number] [facility] 2021-05-31 14:15:00 2021-05-31 14:15:00 Outpatient R ERICK MARTINEZ [facility] [id number] [facility] 2021-05-31 13:51:46 2021-05-31 14:06:46 Color Control Supervisor Visit Pob, Adc Lab Main RegineErick alejandra [facility] 1..840.114 350.1.13.10 4.2.7.2.686 [id number] [facility] 2021-05-31 00:00:00 2021-05-31 00:00:00 Orders Only Doctor Unassigned, Waikele [facility] 1.840.114 350.1.13.10 4.2.7.2.686 [id number] [facility] 2021-03-22 00:00:00 2021-03-22 00:00:00 Patient Outreach Malena Mauro [facility] 1..840.114 350.1.13.10 4.2.7.2.686 [id number] [facility] 2021-03-21 16:12:19 2021-03-21 16:38:35 [facility] 1.2.840.114 350.1.13.10 4.2.7.2.686 [id number] [facility] 2021-03-21 16:20:00 2021-03-21 16:20:00 Outpatient R ERICK MARTINEZ [facility] [id number] [facility] 2021-03-15 12:27:13 2021-03-15 23:59:00 Hospital Encounter Juan [facility] 1.2.840.114 350.1.13.10 4.2.7.2.686 [id number] [facility] 2021-03-15 00:00:00 2021-03-15 00:00:00 Outpatient R GISELAERICK OCASIO [facility] RAD [id number] [facility] 2021-03-09 13:20:00 2021-03-09 13:20:00 Outpatient R ERICK MARTINEZ [facility] [id number] [facility] 2021-02-09 09:16:00 2021-02-09 09:16:00 Outpatient A_Byrd [facility] [id number] 2021-02-08 00:00:00 2021-02-08 00:00:00 Telephone Juan [facility] 1.2.840.114 350.1.13.10 4.2.7.2.686 [id number] [id number] [facility] 2021-02-07 12:23:20 2021-02-07 23:59:00 Hospital Encounter Erick Martinez [facility] 1.2.840.114 350.1.13.10 4.2.7.2.686 [id number] [facility] 2021-02-07 12:23:10 2021-02-07 23:59:00 Hospital Encounter Erick Martinez [facility] 1.2.840.114 350.1.13.10 4.2.7.2.686 [id number] [facility] 2021-02-07 00:00:00 2021-02-07 23:59:00 Outpatient R ERICK MARTINEZ [facility] [id number] [facility] 2021-02-07 00:00:00 2021-02-07 23:59:00 Outpatient R ERICK MARTINEZ [facility] [id number] [facility] 2021-02-07 00:00:00 2021-02-07 00:00:00 Outpatient R ERICK MARTINEZ [facility] [id number] [facility] 2021-01-20 00:00:00 2021-01-20 00:00:00 Patient Secure Msg Doctor Unassigned, Waikele [facility] 1.2840.114 350.1.13.10 4.2.7.2.686 [id number] [facility] 2020-12-26 00:00:00 2020-12-26 00:00:00 [facility] 1.2.840.114 350.1.13.10 4.2.7.2.686 [id number] [facility] 2020-12-16 09:32:19 2020-12-16 23:59:00 Hospital Encounter Erick Martinez [facility] 1.2.840.114 350.1.13.10 4.2.7.2.686 [id number] [facility] 2020-12-16 00:00:00 2020-12-16 00:00:00 Outpatient R ERICK MARTIENZ [facility] [id number] [facility] 2020-12-16 00:00:00 2020-12-16 00:00:00 Orders Only Doctor Unassigned, Waikele [facility] 1.2.840.114 350.1.13.10 4.2.7.2.686 [id number] [facility] 2020-12-09 00:00:00 2020-12-09 00:00:00 Telephone Erick Martinez [facility] Building 1.2.840.114 350.1.13.10 4.2.7.2.686 [id number] [facility] 2020-12-08 15:56:50 2020-12-08 16:11:50 Color Control Supervisor Visit Pob, Adc Lab Main Juan Erick [facility] 1.2.840.114 350.1.13.10 4.2.7.2.686 [id number] [facility] 2020-12-08 14:47:49 2020-12-08 15:32:25 Office Visit JuanErick [facility] 1.2.840.114 350.1.13.10 4.2.7.2.686 [id number] [facility] 2020-12-08 14:40:00 2020-12-08 14:40:00 Outpatient R ERICK MARTINEZ [facility] [id number] [facility] 2020-11-01 12:49:53 2020-11-01 13:09:53 Office Visit Raul Valerio [facility] 1.2.840.114 350.1.13.10 4.2.7.2.686 [id number] [facility] 2020-11-01 13:00:00 2020-11-01 13:00:00 Outpatient R RAUL VALERIO [facility] [id number] [facility] 2020-10-10 08:43:22 2020-10-10 08:58:22 Color Control Supervisor Visit Pob, Adc Lab Main Erick Martinez [facility] 1.2.840.114 350.1.13.10 4.2.7.2.686 [id number] [facility] 2020-10-10 08:45:00 2020-10-10 08:45:00 Outpatient R ERICK MARTINEZ [facility] [id number] [facility] 2020-09-20 15:34:49 2020-09-20 15:49:49 Color Control Supervisor Visit Pob, Adc Lab Main Joya Fairchild [facility] 1.2.840.114 350.1.13.10 4.2.7.2.686 [id number] [facility] 2020-09-20 15:45:00 2020-09-20 15:45:00 Outpatient R JOYA FAIRCHILD [facility] [id number] [facility] 2020-09-13 00:00:00 2020-09-13 00:00:00 Telephone Erick Martinez [facility] 1.2.840.114 350.1.13.10 4.2.7.2.686 [id number] [facility] 2020-09-09 10:01:08 2020-09-09 11:20:19 Office Visit Erick Martinez [facility] 1.2.840.114 350.1.13.10 4.2.7.2.686 [id number] [facility] 2020-09-09 10:00:00 2020-09-09 10:00:00 Outpatient R ERICK MARTINEZ [facility] [id number] [facility] 2020-09-09 00:00:00 2020-09-09 00:00:00 Letter (Out) Doctor Unassigned, Waikele [facility] 1.2840.114 350.1.13.10 4.2.7.2.686 [id number] [facility] 2020-09-09 00:00:00 2020-09-09 00:00:00 Telephone Erick Martinez [facility] Office Building One 1.2840.114 350.1.13.10 4.2.7.2.686 [id number] [facility] 2020-08-02 11:19:42 2020-08-02 12:13:14 Office Visit Iman Raul [facility] Building 1.20.114 350.1.13.10 4.2.7.2.686 [id number] [facility] 2020-08-02 11:40:00 2020-08-02 11:40:00 Outpatient R RAUL VALERIO [facility] [id number] [facility] 2020-07-28 09:08:12 2020-07-28 09:44:07 Office Visit Keenan Holland [facility] Building 1.2.114 350.1.13.10 4.2.7.2.686 [id number] [facility] 2020-07-28 09:00:00 2020-07-28 09:00:00 Outpatient R KEENAN HOLLAND SHIWAN [facility] [id number] [facility] 2020-07-19 13:20:00 2020-07-19 13:20:00 Outpatient R IMAN [facility] [id number] [facility] 2020-06-27 00:00:00 2020-06-27 00:00:00 Orders Only Doctor Unassigned, Waikele [facility] 1.2840.114 350.1.13.10 4.2.7.2.686 [id number] [facility] 2020-06-21 00:00:00 2020-06-21 00:00:00 Telephone Raul Valerio [facility] Building 1.2840.114 350.1.13.10 4.2.7.2.686 [id number] [facility] 2020-06-15 09:04:56 2020-06-15 23:59:00 Hospital Encounter Raul Valerio [facility] 1.20.114 350.1.13.10 4.2.7.2.686 [id number] [facility] 2020-06-15 09:01:43 2020-06-15 09:16:43 Color Control Supervisor Visit Pob, Adc Lab Main [facility] Building 1.284.114 350.1.13.10 4.2.7.2.686 [id number] [facility] 2020-06-15 09:00:00 2020-06-15 09:00:00 Outpatient R [facility] [id number] [facility] 2020-06-15 09:00:00 2020-06-15 09:00:00 Outpatient R RAUL VALERIO [facility] [id number] [facility] 2020-06-14 10:38:05 2020-06-14 11:58:24 Office Visit Raul Valerio [facility] Building 1.284.114 350.1.13.10 4.2.7.2.686 [id number] [facility] 2020-06-14 11:00:00 2020-06-14 11:00:00 Outpatient R RAUL VALERIO [facility] [id number] [facility] 2020-05-21 00:00:00 2020-05-21 00:00:00 Orders Only Doctor Unassigned, Waikele [facility] 1.2840.114 350.1.13.10 4.2.7.2.686 [id number] [facility] 2020-04-19 14:20:00 2020-04-19 14:20:00 Outpatient R RAUL VALERIO [facility] [id number] [facility] 2020-03-16 13:32:09 2020-03-16 14:02:00 [facility] 1..840.114 350.1.13.10 4.2.7.2.686 [id number] [facility] 2020-03-16 13:40:00 2020-03-16 13:40:00 [facility] [id number] [facility] 2020-01-06 13:15:00 2020-01-06 13:15:00 Outpatient R GOLDIE GUZMAN [facility] [id number] [facility] 2019-12-29 00:00:00 2019-12-29 00:00:00 Telephone Daniele [facility] Building 1.840.114 350.1.13.10 4.2.7.2.686 [id number] [facility] 2019-12-29 00:00:00 2019-12-29 00:00:00 [facility] 1..840.114 350.1.13.10 4.2.7.2.686 [id number] 2019-12-23 13:45:00 2019-12-23 13:45:00 Outpatient R GOLDIE GUZMAN [facility] [id number] [facility] 2019-12-15 15:02:38 2019-12-15 16:02:38 Laboratory Only Pc, Adc Echo Room 1 - Daniele Stephie Moy [facility] nal Building 1..840.114 350.1.13.10 4.2.7.2.686 [id number] [facility] 2019-12-15 15:02:38 2019-12-15 16:02:38 Laboratory Only Pc, Adc Echo Room 1 - [facility] 1.2.840.114 350.1.13.10 4.2.7.2.686 [id number] 2019-12-15 13:54:15 2019-12-15 15:03:02 [facility] 1.2.840.114 350.1.13.10 4.2.7.2.686 [id number] [facility] 2019-12-15 13:54:15 2019-12-15 15:03:02 Office Visit Daniele [facility] 1.2.840.114 350.1.13.10 4.2.7.2.686 [id number] 2019-12-15 14:20:00 2019-12-15 14:20:00 Outpatient R DANIELE [facility] [id number] [facility] 2019-12-15 00:00:00 2019-12-15 00:00:00 Orders Only Doctor Unassigned, Waikele [facility] 1.2.840.114 350.1.13.10 4.2.7.2.686 [id number] [facility] 2019-12-15 00:00:00 2019-12-15 00:00:00 Orders Only Doctor Unassigned, Waikele [facility] 1.2.840.114 350.1.13.10 4.2.7.2.686 [id number] 2019-12-01 15:45:00 2019-12-01 15:45:00 Outpatient R KAILYN YANCEY [facility] [id number] [facility] 2019-11-20 13:50:27 2019-11-20 14:52:43 Office Visit Goldie Guzman [facility] 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 [facility] & 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 [facility] 1.840.114 350.1.13.10 4.2.7.2.686 [id number] [facility] 2019-11-20 13:45:00 2019-11-20 14:52:43 Outpatient R GOLDIE GUZMAN [facility] [id number] [facility] 2019-11-18 14:00:00 2019-11-18 14:21:00 Outpatient R GOLDIE GUZMAN [facility] [id number] [facility] 2019-11-18 13:09:28 2019-11-18 14:21:00 Nurse Visit Visit, [facility] Nurse Goldie Guzman [facility] L[employer] 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 [facility] & CHILD [facility] 1..114 350.1.13.10 4.2.7.2.686 [id number] [facility] 2019-11-18 00:00:00 2019-11-18 00:00:00 Orders Only Doctor Unassigned, Waikele [facility] 1..114 350.1.13.10 4.2.7.2.686 [id number] [facility] 2019-10-30 00:00:00 2019-10-30 00:00:00 Orders Only Doctor Unassigned, Waikele [facility] 1.20.114 350.1.13.10 4.2.7.2.686 [id number] [facility] 2019-08-20 00:00:00 2019-08-20 00:00:00 Outpatient R KEENAN HOLLAND SHIWAN [facility] [id number] [facility] 2019-06-09 09:01:02 2019-06-09 23:59:00 Hospital Encounter Kailyn Mosquera [facility] 1..114 350.1.13.10 4.2.7.2.686 [id number] [facility] 2019-06-09 08:58:36 2019-06-09 09:00:00 Hospital Encounter Kailyn Mosquera [facility] 1.2.840.114 350.1.13.10 4.2.7.2.686 [id number] [facility] 2019-06-01 00:00:00 2019-06-01 00:00:00 Telephone Kailyn Mosquera [facility] 1.2.840.114 350.1.13.10 4.2.7.2.686 [id number] [facility] 2019-05-28 08:53:07 2019-05-28 09:40:51 Office Visit Care, Ang Primary Kailyn Mosquera [facility] 1.2.840.114 350.1.13.10 4.2.7.2.686 [id number] [facility] 2019-05-28 00:00:00 2019-05-28 00:00:00 Orders Only Doctor Unassigned, Waikele [facility] 1.2.840.114 350.1.13.10 4.2.7.2.686 [id number] [id number] [facility] Results Test Description Test Time Test Comments Results Result Co mments Source Notes Date/Time Note Provider Source 2023-12-23 08:28:25 [id number] b3ljB9truVtbrDYJh z+gWyG4y+5CZ2gGQmfEnODfMadZ6574-53-23 T08:28:25 Chief ComplaintPatient presents withNew PatientErroneous encounter-disregardHas new insuranceMELISSA TanN 10412-9Wwlyk ZwniEB6165-93-33P06:30:08Nurse NoteTXT1.2.840.586815.1.13.131.2.7.2. [id number] for patient ihdn65318-3Ypubf NoteLNNARRATIVEFormatted C-CDA narrative [facility] [place] [facility] [place].[id number] 0030-77-11U47:30:081.2.840.134686.1.7 2.3.15|1.2.840.560329.1.13.131.2.7.2. [id number] [facility]"
[2024-02-07] MEDS ORDERED: ONDANSETRON 4 MG/2 ML VIAL ONE (18:52)
[2024-02-07] MEDS ORDERED: NA CHLORIDE 0.9% 1,000 ML ONE (18:53)
[2024-02-07 19:14] LABS: Absolute Basophils 0.1 K/uL (0-0.5); Absolute Eosinophils 0.1 K/uL (0-0.5); Absolute Lymphocytes (CBC) 1.2 K/uL (0.7-4.9); Absolute Monocytes 0.4 K/uL (0.1-1.3); Absolute Neutrophil 6.6 K/uL (1.8-8.0); Basophils % 0.8 % (0-1.3); Eosinophils % 1.2 % (0-4.4); Hematocrit 38.8 % (36.0-45.0); Hemoglobin 13.2 g/dL (12.0-15.0); Lymphocytes % 14.5 % (15.3-44.8); MCH 30.3 pg (27.0-35.0); MCHC 33.9 g/dL (32.0-36.0); MCV 89.2 fL (80-100); Monocytes % 4.3 % (3.3-12.3); Neutrophils % 79.2 % (41.7-73.7); Platelets 273 thou/uL (152-406); RBC Red Blood Cell Count 4.35 M/uL (3.86-4.86); Red Cell Distribution Width 13.3 % (12.1-15.2)
[2024-02-07 19:30] LABS: Albumin 3.7 g/dL (3.4-5.0); Anion Gap 6.6 mEq/L (5.0-15.0); Bilirubin Direct 0.2 mg/dL (0-0.2); Bilirubin Indirect, Calculated 0.9 mg/dL (0.2-0.8); Bilirubin Total 1.1 mg/dL (0.2-1.0); Globulin 3.7 g/dL (2.3-3.5); Potassium 3.6 mEq/L (3.5-5.1); Protein, Total 7.4 g/dL (6.4-8.2)
[2024-02-07] MEDS ORDERED: ACETAMINOPHEN 500 MG TAB ONE (20:14)
[2024-02-08 14:54] VITALS: BP 134/77; TEMP 97.6; O2SAT 100
--- NOTE | 2024-02-10 14:46 | EKG ---
Test Date: 2024-02-07 Test Time: 18:58:47 Secretary Specialist: JOHNATHON MEASUREMENT RESULTS: Intervals: Rate: 78 [place]: 152 QRSD: 90 QT: 412 QTc: 469 [place]: P: 78 [place]: 152 QRS: -4 T: 34 INTERPRETIVE STATEMENTS: Normal sinus rhythm Normal ECG No previous ECG available for comparison Electronically Signed On 02-10-24 14:39:45 CDT by Ricky Dooley
== END 2024-02-07 20:28 | disposition home or self-care (01) ==
LOC: ER 17:58
DX: R42 Dizziness and giddiness (principal); R11.0 Nausea; R10.9 Unspecified abdominal pain
CPT/HCPCS: 96361; 93005; 85025; 80048; 36415; 80076; 96374; 99285; J2405; J7030